=== PATIENT | female | born 1955 | race African-American/Black ===

== ENCOUNTER 2016-03-30 22:47 | Inpatient (IN) | payer OTHER ==
--- NOTE | ~2016-03-30 | CN ---
Consultation Report [facility] [address] [place]. [address] NAME: LYNN HAYS : 57 STATUS : ADM IN PAT#: [id number] AGE: 61 ADM/REG DATE : 03/31/16 MR#: [id number] REPORT SERV DATE: 04/09/16 DICTATED BY: JYOTHI RODRIGUEZ DATE: 04/09/16 REPORT STATUS : Draft TRANSCRIBED BY: MODL DATE: 04/09/16 DATE OF CONSULTATION: Dear Dr. Tidwell: Thank you for requesting my opinion regarding evaluation and management of Ms Lynn Hays's mediastinal lymphadenopathy and pulmonary hypertension. Ms Hays is an extremely pleasant 61-year-old female with a significant past medical history of obesity, hypertension, anemia, and diabetes who presents to [facility] with worsening shortness of breath and dyspnea on exertion over the past several months. The patient presented with worsening anasarca, abdominal pain, and weight gain. She had a BNP over 2000 and an indeterminate troponin. She denied any active chest pain, fevers, chills, night sweats, nausea, vomiting, diarrhea, or constipation. She was placed on diuretics and had felt significantly better. An echocardiogram demonstrated a normal EF with moderate pulmonary hypertension with PA pressures around 40 or 54, but could not exclude an ASD. A BHANU was recommended. As per the patient, there were three prior times for BHANU and is now scheduled for three attempts for BHANU, but her cough prohibited further evaluation. She is scheduled for a BHANU tomorrow. REVIEW OF SYSTEMS: A detailed 14-point review of systems was completed. Pertinent positives and negatives are listed above. PAST MEDICAL HISTORY: 1. Hypertension. 2. Left ventricular hypertrophy. 3. Anemia. 4. Morbid obesity. 5. Diabetes. 6. Pulmonary hypertension, diagnosed at least 10 years ago. PAST SURGICAL HISTORY: As above. ALLERGIES: NO KNOWN DRUG ALLERGIES. HOME MEDICATIONS: Include amlodipine, aspirin, benazepril, Coreg, cholecalciferol, hydrochlorothiazide, isosorbide, and spironolactone. FAMILY HISTORY: Stroke. SOCIAL HISTORY: The patient is a lifelong nonsmoker. She denies any significant history of alcohol or illicit drug abuse. PHYSICAL EXAMINATION: VITAL SIGNS: Afebrile. T-current 96.6, pulse of 52, respiratory rate of 22, 2 L nasal Consultation Report [facility] [address] [place]. [address] NAME: LYNN HAYS : 57 STATUS : ADM IN PAT#: [id number] AGE: 61 ADM/REG DATE : 03/31/16 MR#: [id number] REPORT SERV DATE: 04/09/16 DICTATED BY: JYOTHI RODRIGUEZ DATE: 04/09/16 REPORT STATUS : Draft TRANSCRIBED BY: MODL DATE: 04/09/16 cannula 98%, blood pressure 130/65. GENERAL: No acute distress. Able to communicate in full paragraphs at a time. Pleasant. HEENT: Normocephalic, atraumatic. Pupils are equal, round, reactive accommodation posterior oropharynx is clear. NECK: No JVD. No LAD. Trachea midline. CARDIOVASCULAR: Bradycardia, otherwise regular rhythm. No obvious murmurs, rubs, or clicks. LUNGS: Coarse bilateral breath sounds. Bronchial prominent wheezes noted on forced expiration. Otherwise, no other significant abnormalities. No dullness to percussion. ABDOMEN: Protuberant, nontender, nondistended. Soft. Positive bowel sounds. EXTREMITIES: Bilateral lower leg edema. NEUROLOGIC: 5/5 strength in upper and lower extremities. Cranial nerves II through XII intact. Gait not tested. DTRs not performed. LABORATORY DATA: White count of 5, hemoglobin of 10, platelet count of 208. Chemistries demonstrate a creatinine of 3.46 and albumin of 3.0. IMAGIN. Chest CT without contrast on 04/05/2016 demonstrates enlarged pulmonary arteries consistent with high pulmonary hypertension. 2. Congestive liver disease with right heart failure. 3. Bronchial wall thickening, likely related to asthma (?). 4. Discoid atelectasis in the right lower lobe. This CT scan was performed without contrast. It is difficult to delineate the pulmonary arterial system from the mediastinal lymphadenopathy. There, however, appears to be significant fullness which may indicate bilateral hilar adenopathy. This CT scan was reviewed by me and my interpretation was listed above. V/Q scan performed on 04/07/2016 demonstrated radiographic abnormalities in the left lower lobe, probability of pulmonary embolism is indeterminate. Bilateral lower leg Dopplers demonstrates no evidence of a DVT. This was performed on 03/31/2016. ASSESSMENT AND PLAN: Ms Lynn Hays is an extremely pleasant 61-year-old female with a significant past medical history of long-standing shortness of breath and chronic kidney disease with nephrotic range proteinuria, who presents with worsening shortness of breath, dyspnea on exertion, anasarca, and abdominal discomfort. The patient responded well to aggressive diuresis and she was evaluated for pulmonary hypertension with an echocardiogram. Echo demonstrated a normal EF and PA pressure of approximately. They cannot exclude an atrial septal defect. A transesophageal echocardiogram has been ordered that postponed due to cough issues related to the procedure and is now rescheduled for tomorrow. With regard to the patient's indeterminate V/Q scan, the patient likely has a low likelihood Consultation Report [address] [place]. [address] NAME: LYNN HAYS : 57 STATUS : ADM IN [facility]#: [id number] AGE: 61 ADM/REG DATE : 03/31/16 MR#: [id number] REPORT SERV DATE: 04/09/16 DICTATED BY: JYOTHI RODRIGUEZ DATE: 04/09/16 REPORT STATUS : Draft TRANSCRIBED BY: JESSE DATE: 04/09/16 of CTEPH. Nonetheless, I recommend that we complete the evaluation with bilateral upper extremity Dopplers. The previous bilateral lower leg Dopplers were negative. With the patient's CT scan of the chest is difficult to evaluate given there is no contrast. However, there seemed to be significant bilateral hilar fullness. This could represent just reactive adenopathy. The differential diagnosis does include sarcoidosis which could explain her cardiac issues as well. At this point, to better delineate the underlying causes of her pulmonary hypertension, I recommend the followin. Check NANCY, ANCA, ESR, CRP, anti-U1-PRECISION LATHE OPERATOR, anticentromere antibody, [id number] antibody. 2. Bilateral upper extremity Dopplers. 3. Check HIV test. 4. Full pulmonary function tests, to be performed on Sunday. 5. Comprehensive metabolic profile, to re-evaluate the patient's liver function test. 6. The patient may benefit from an outpatient sleep study. 7. Pending further recommendations with regard to possible EBUS bronchoscopy, will be discussed with Dr. Raphael, who is assuming the Pulmonary Consult Service. Thank you for allowing me to participate in Ms Hays's care. Sincerely, KEYA/JESSE Jyothi Rodriguez M.D. / [id number] CC: Pradeep Gillette M.D.
--- NOTE | ~2016-03-30 | IDS ---
Interim Discharge Summary [place] [address] [place] [address] NAME: NIRAJ HAYS : 57 STATUS : ADM IN PAT#: [id number] AGE: 61 ADM/REG DATE : 03/31/16 MR#: [id number] REPORT SERV DATE: 04/10/16 DICTATED BY: MICHELLE TIDWELL DATE: 04/09/16 REPORT STATUS : Draft TRANSCRIBED BY: MODL DATE: 04/09/16 ADMISSION DATE: 03/31/2016 DISCHARGE DATE: NO DICTATION DD/MODL Michelle Tidwell M.D. / [id number] CC: Pradeep Gillette M.D.
--- NOTE | ~2016-03-30 | CN ---
Consultation Report [facility] [address] [place]. [address] NAME: NIRAJ HAYS : 57 STATUS : ADM IN [facility]#: [id number] AGE: 61 ADM/REG DATE : 03/31/16 MR#: [id number] REPORT SERV DATE: 03/31/16 DICTATED BY: CARLINE VUONG DATE: 03/31/16 REPORT STATUS : Draft TRANSCRIBED BY: MODL DATE: 03/31/16 NEPHROLOGY CONSULTATION DATE OF CONSULTATION: INDICATION FOR CONSULTATION: Acute on chronic kidney failure, anasarca. HISTORY OF PRESENT ILLNESS: Ms. Hays is a 61-year-old female who is seen at request of Dr. Fisher to further evaluate acute on chronic kidney disease. She presented to the emergency room with some right-sided abdominal pain, increased weight of some 20 pounds, and some dull to sharp pain on palpation in the right upper quadrant with reported nausea and weakness. She apparently was not taking care of herself due to the recent of her mother. She indicates that her kidney function has been stable when seen by Dr. Navarro. Her baseline creatinine ranges 2.1 to 2.4 and was 2.2 when last seen in December 2015. Her admission creatinine was 2.96. She is noted to have large proteinuria on her urinalysis with office values typically 2 to 3+ and evidence of spot urine demonstrating 4 to 6 g of protein. Of note, her hemoglobin is lower, platelet count is low, and her WBC count is low which is atypical of outpatient labs. PAST MEDICAL HISTORY: Diet-controlled diabetes, hypertensive cardiomyopathy, obesity, pulmonary hypertension, anemia, congestive heart failure, remote cholecystectomy, chronic kidney disease, baseline creatinine 2.1 to 2.4 with late stage III, early stage IV CKD. FAMILY HISTORY: Positive for hypertension and diabetes. No end-stage renal disease. SOCIAL HISTORY: The patient recently lost her mother apparently due to kidney disease. No tobacco products, alcohol, or illicit drugs. ALLERGIES: NONE KNOWN. MEDICATIONS: Furosemide, vitamin D, doxazosin, Coreg, benazepril, aspirin, amlodipine, Aldactone. REVIEW OF SYSTEMS: HEENT: Change in visual acuity. No epistaxis. No otic infection. No pharyngitis. PULMONARY: No shortness of breath with exertion. Cough. No hemoptysis. CARDIAC: No chest pain. Has noted lower extremity edema. GI: Abdominal pain with nausea. No melena. No hematemesis. : No gross hematuria, dysuria, or pyuria. MUSCULOSKELETAL: Pain in back. Integument: No lesions. No itching. No rash. NEUROLOGIC: No lateralizing weakness or seizure activity. Remainder of the 12-point review of systems is negative. Consultation Report [place] [address] [place] [place] [address] NAME: NIRAJ HAYS : 57 STATUS : ADM IN [facility]#: [id number] AGE: 61 ADM/REG DATE : 03/31/16 MR#: [id number] REPORT SERV DATE: 03/31/16 DICTATED BY: CARLINE VUONG DATE: 03/31/16 REPORT STATUS : Draft TRANSCRIBED BY: JESSE DATE: 03/31/16 PHYSICAL EXAMINATION: GENERAL: Obese female, alert and cooperative. VITAL SIGNS: Blood pressure 150/72, temp 97.5, respiratory rate 18, pulse 43. HEENT: Eyes, no scleral icterus. Pupils equal and reactive to light. Extraocular movement intact. Nares patent. No lesions. Throat, no injection. Mucous membranes moist. NECK: No thyromegaly, masses, or bruits. CHEST/LUNGS: Late crackles posteriorly. No dullness. No wheezes. CARDIAC: Regular bradycardia. 1/6 systolic ejection murmur. No gallop. No rub. ABDOMEN: Obese. Normoactive bowel sounds. Mild right upper quadrant discomfort without guarding or rebound. Unable to appreciate hepatosplenomegaly or bruits. BREAST/PELVIC/RECTAL: Exam not performed. EXTREMITIES: 2 to 3+ edema. No calf tenderness. DERMIS: No rash. No skin lesions. MUSCULOSKELETAL: No deformity. No joint tenderness. NEUROLOGIC: Cranial nerves intact. No lateralizing weakness. IMPRESSION: 1. Acute on chronic kidney disease, possible SULEMA inhibitor effect, prerenal state, The patient may have underlying acute GN with history of nephrotic range proteinuria. 2. Anasarca likely due to nephrotic range proteinuria. May need to consider renal biopsy. 3. History of diet-controlled type 2 diabetes mellitus. 4. Hypertensive cardiomyopathy. 5. Obesity. 6. Pulmonary hypertension. 7. Pancytopenia. 8. History of congestive heart failure. 9. Remote cholecystectomy. PLAN: 1. Labs. 2. Continue current medications. 3. Access renal biopsy. CG/JESSE Carline Vuong M.D. / [id number] CC: René Fisher MD Consultation Report [address] [place]. [address] NAME: NIRAJ HAYS : 57 STATUS : ADM IN PAT#: [id number] AGE: 61 ADM/REG DATE : 03/31/16 MR#: [id number] REPORT SERV DATE: 03/31/16 DICTATED BY: CARLINE VUONG DATE: 03/31/16 REPORT STATUS : Draft TRANSCRIBED BY: MODL DATE: 03/31/16 Barber Navarro M.D.
--- NOTE | ~2016-03-30 | IDS ---
Interim Discharge Summary [place] [address] [facility] [place]. [address] NAME: NIRAJ HAYS : 57 STATUS : ADM IN [facility]#: [id number] AGE: 61 ADM/REG DATE : 03/31/16 MR#: [id number] REPORT SERV DATE: 04/10/16 DICTATED BY: MICHELLE TIDWELL DATE: 04/09/16 REPORT STATUS : Draft TRANSCRIBED BY: MODL DATE: 04/09/16 ADMISSION DATE: 03/31/2016 DISCHARGE DATE: DATE OF INTERIM SUMMARY: 04/09/2016. CURRENT DIAGNOSES: 1. Pulmonary hypertension, exact etiology not clear. 2. Possible atrial septal defect by transthoracic echocardiography. Failed attempts at transesophageal echocardiography x2 because of cough. Pulmonary evaluation pending. 3. Acute right heart failure, present on admission with anasarca, improved with 11 kg diuresis. 4. Acute bronchitis. 5. Type 2 diabetes. 6. Chronic kidney disease 5 with proteinuria. 7. Hypertension, with some nosocomial hypotension with treatment. 8. Bradycardia associated with low-dose beta-joanie therapy. 9. Ventricular arrhythmias. 10.Chronic anemia. 11.Iron deficiency, treated with Nulecit. 12.Obesity. OPERATIONS AND PROCEDURES: None. PRESENT ILLNESS: This is a 61-year-old white female, who was triaged in the emergency room on 03/30/2016 at 1733 hours complaining of abdominal pain. After evaluation in the emergency room, she was thought to have acute kidney injury associated with anasarca and hypertension. She was referred to the Hospitalist Service. She was seen by Dr. René Fisher and admitted as described on admission history and physical examination. ADDITIONAL HISTORY: Per Dr. Fisher. PHYSICAL EXAMINATION: Per Dr. Fisher. ADMISSION LABORATORY: Per Dr. Fisher. HOSPITAL COURSE: She was admitted with assessment. 1. Anasarca. 2. Possible nephrotic syndrome. 3. Hypertension. 4. Acute kidney injury. 5. Morbid obesity. 6. Type 2 diabetes. 7. Hypertensive cardiomyopathy with left ventricular hypertrophy history. 8. Pancytopenia. Interim Discharge Summary [place] [address] [facility] [place]. [address] NAME: NIRAJ HAYS : 57 STATUS : ADM IN [facility]#: [id number] AGE: 61 ADM/REG DATE : 03/31/16 MR#: [id number] REPORT SERV DATE: 04/10/16 DICTATED BY: MICHELLE TIDWELL DATE: 04/09/16 REPORT STATUS : Draft TRANSCRIBED BY: JESSE DATE: 04/09/16 9. Pulmonary hypertension. On admission, she was placed on [address]. Nephrology consultation was obtained. Hydralazine and clonidine were added to her antihypertensive regimen. Her home SULEMA inhibitor therapy was held. An echocardiogram was scheduled. Her hospitalist care was by Dr. Pope through 04/03/2016 and then the undersigned from 04/04/2016. An echocardiogram showed low normal left ventricular systolic function with an estimated EF of 50%. There was borderline right ventricular and right atrial enlargement. There was moderate to severe tricuspid regurgitation with moderately elevated pulmonary pressures at 42.88. There was concern for possible ASD. Cardiology was consulted. She was seen by Dr. Mercer who had seen her in the past. He recommended transesophageal echocardiography, overnight oximetry to evaluate for obstructive sleep apnea, low-dose Coreg, and continued diuresis. With diuresis she lost 11 kg of weight. Her dyspnea and abdominal pain improved, and her lower extremity edema resolved. With her diuresis and antihypertensive therapy, her creatinine on admission increased from 2.96 to 3.66 on the 04/07/2016 and is 3.5 today. This increased creatinine has persisted despite discontinuation of diuretic therapy and modification of her antihypertensive therapy. She has not tolerated even low-dose carvedilol 3.125 mg twice daily because of bradycardia. Attempts to perform transesophageal echocardiography have failed twice because she has been unable to remain supine because of cough. Additional evaluation of her pulmonary hypertension and cough has included overnight oximetry, which did not show significant desaturation. A V/Q lung scan showed scintigraphic and radiographic abnormalities in the left lower lobe, thought to be indeterminate for pulmonary embolus and not particularly consistent with chronic thromboembolic pulmonary hypertension. Venous ultrasound imaging of both lower extremities did not show DVT. A CT chest without contrast demonstrated large main pulmonary artery consistent with pulmonary hypertension. There is congestion of the liver with component of the right heart failure. There is bronchial wall thickening likely related to asthma. There is mild discoid atelectasis, right lower lobe. She was given bronchodilator therapy for her cough. There seemed to be some improvement, but she developed nausea and this was discontinued. She was given a single dose of Solu- Interim Discharge Summary [facility] [address] [place]. [address] NAME: NIRAJ HAYS : 57 STATUS : ADM IN PAT#: [id number] AGE: 61 ADM/REG DATE : 03/31/16 MR#: [id number] REPORT SERV DATE: 04/10/16 DICTATED BY: MICHELLE TIDWELL DATE: 04/09/16 REPORT STATUS : Draft TRANSCRIBED BY: MODL DATE: 04/09/16 Medrol with some initial improvement, but she was concerned that the corticosteroids would affect her renal function and refused further therapy. Pulmonary consultation is being obtained today for further recommendations. She was found to be iron deficient with an iron of 21 and a ferritin of 46. She received Nulecit iron replacement without complication. Additional significant diagnostic studies have included normal thyroid function tests with a TSH of 1.040 and a free T4 of 1.09. A C-reactive protein is borderline high at 9.3. C3 and C4 are normal at 104 and 31.6 respectively. A 24-hour urine protein is 1513 mg. LABORATORY STUDIES: An immunofixation did not demonstrate any monoclonal protein. Hepatitis profile and HIV were all negative. An NANCY was less than 1:40 and a serum protein electrophoresis demonstrates no monoclonal protein. SULEMA is less than 10. A sputum culture is no growth. She continues to be followed by [facility] Card[facility] and Nephrology group. Hospitalist care to be assumed by [address] [place] [address] Team on 04/11/2016. DD/INOCENCIAL Michelle Tidwell M.D. / [id number] CC: Pradeep Gillette M.D.
--- NOTE | ~2016-03-30 | CN ---
Consultation Report [address] [place]. [address] NAME: NIRAJ HAYS : 57 STATUS : ADM IN [facility]#: [id number] AGE: 61 ADM/REG DATE : 03/31/16 MR#: [id number] REPORT SERV DATE: 04/02/16 DICTATED BY: PORTER DUMONT DATE: 04/02/16 REPORT STATUS : Draft TRANSCRIBED BY: MODL DATE: 04/02/16 CARDIOLOGY CONSULTATION DATE OF CONSULTATION: 04/02/2016 The patient was admitted on 03/[address] René Fisher. HISTORY OF PRESENT ILLNESS: Mrs. Hays is a 61-year-old female, who struggles with obesity. Ten years ago, was noted to have moderate pulmonary hypertension. Comes in now with anasarca, abdominal pain, and weight gain. Found to have proteinuria close to nephrotic range. She had a BNP over 2000. Checked a troponin, which was 0.17. She has not had any chest pain. She has responded to IV Bumex and briefly was on dopamine drip. She has lost weight and feels better. An echocardiogram was performed two days ago. The EF was normal. They found moderate pulmonary hypertension with PA pressure around 54 and could not exclude an ASD. Recommendation, therefore, a BHANU to further evaluate. PAST MEDICAL HISTORY: Hypertension, left ventricular hypertrophy, anemia, morbid obesity, diabetes, pulmonary hypertension for at least 10 years. ALLERGIES: NONE. MEDICATIONS: Include amlodipine, aspirin, benazepril, she was taking Coreg 25 mg twice a day at home, cholecalciferol, hydrochlorothiazide, isosorbide, and spironolactone. FAMILY HISTORY: Pertinent for stroke. SOCIAL HISTORY: Nonsmoker. PAST SURGICAL HISTORY: As listed above. REVIEW OF SYSTEMS: Otherwise all negative. PHYSICAL EXAMINATION: VITAL SIGNS: Blood pressure 115/59 and heart rate 53. GENERAL: The patient is an overweight female, alert and oriented x3, in no distress. HEENT: Pupils equal, round, and reactive to light and accommodation. Extraocular muscles are intact. NECK: Supple. Trachea midline. No carotid bruits. CHEST: Clear. HEART: PMI, midclavicular line. Regular rate and rhythm. No significant murmur. ABDOMEN: Protuberant and soft. Consultation Report [address] [place]. [address] NAME: NIRAJ HAYS : 57 STATUS : ADM IN [facility]#: [id number] AGE: 61 ADM/REG DATE : 03/31/16 MR#: [id number] REPORT SERV DATE: 04/02/16 DICTATED BY: PORTER DUMONT DATE: 04/02/16 REPORT STATUS : Draft TRANSCRIBED BY: MODL DATE: 04/02/16 EXTREMITIES: Bilateral 1+ pitting edema. NEURO: Nonfocal. DATA: We have a 12-lead EKG, which shows probable sinus rhythm with PACs. She has nonspecific ST and T wave changes. The troponin is mentioned above. The BNP over 1999. The echocardiogram showing 50% ejection fraction with RVSP of 54 mmHg, 3+ tricuspid regurgitation, some right chamber dilatation, and cannot rule out an ASD. CLINICAL IMPRESSIONS: 1. Acute kidney injury. 2. Proteinuria. 3. Anasarca and abdominal pain, made better with diuresis. 4. Moderate pulmonary hypertension, 3+ tricuspid regurgitation, RV dilatation with possible ASD. 5. Obesity, diabetes, hypertension, left ventricular hypertrophy. 6. Bradycardia and nonsustained ventricular tachycardia, now off Coreg. PLAN: 1. Transesophageal echo in the morning. 2. Overnight oximetry to rule out obstructive sleep apnea. 3. Restart Coreg at a low dose. 4. Continue gentle diuresis. [facility]/MODL Porter Dumont M.D. / [id number] CC: Pradeep Lea M.D.
--- NOTE | ~2016-03-30 | PUL ---
[place] [address] [place]. [address] NAME: NIRAJ HAYS : 57 STATUS : ADM IN [facility]#: [id number] AGE: 61 ADM/REG DATE : 03/31/16 MR#: [id number] REPORT SERV DATE: 04/04/16 DICTATED BY: KAYLA RHOADES DATE: 04/03/16 REPORT STATUS : Draft TRANSCRIBED BY: MODL DATE: 04/03/16 PULMONARY FUNCTION TEST OVERNIGHT OXIMETRY REPORT START DATE OF TESTIN04/03/2016. END DATE OF TESTIN04/03/2016. COMMENTS: Testing was conducted with the patient breathing supplemental oxygen at a flow rate of 2 L/minute. RESULTS: Total valid sampling time: 5 hours 55 minutes and 37 seconds. Total time with an oxygen saturation less than 88%, 18 seconds. Oxygen desaturation index 3.2. IMPRESSION: There was no significant desaturation during this study conducted while the patient was breathing supplemental oxygen at a flow rate of 2 L/minute. PS/JESSE Kayla Rhoades M.D. / [id number] CC: Pradeep Lea M.D.
--- NOTE | ~2016-03-30 | CN ---
Consultation Report [place] [address] [id number] [facility] [place]. [address] NAME: LYNN HAYS : 57 STATUS : ADM IN [facility]#: [id number] AGE: 61 ADM/REG DATE : 03/31/16 MR#: [id number] REPORT SERV DATE: 04/10/16 DICTATED BY: FORREST COOPER DATE: 04/10/16 REPORT STATUS : Draft TRANSCRIBED BY: MODL DATE: 04/10/16 ELECTROPHYSIOLOGY CONSULTATION DATE OF CONSULTATION: Requested by Dr. Tao Mercer. INDICATION: Bradycardia. HISTORY OF PRESENT ILLNESS: Ms. Lynn Hays is a complicated 61-year-old female, who was admitted on March 31. She has been found to have significant pulmonary hypertension. She has chronic kidney disease with acute kidney injury. She has normal LV systolic function and high blood pressure. She has been seen by Cardiology, Pulmonology, and Nephrology, all under the direction of the Internal Medicine Service. The patient has had issues with bradycardia since admission. Her Coreg was held for a period of time, then resumed at a low-dose, then again been held secondary to bradycardia. She has sinus bradycardia with intermittent periods of a junctional rhythm with heart rates between 35 and 40 beats per minute. She does have some fatigue and shortness of breath. She has not had syncope or presyncope. No complaints of chest pain. PAST MEDICAL HISTORY: Hypertension, left ventricular hypertrophy, anemia, obesity, and pulmonary hypertension. MEDICATIONS: Subcu heparin, magnesium oxide, simethicone, and spironolactone. ALLERGIES: NONE KNOWN. SOCIAL HISTORY: No smoking. FAMILY HISTORY: Notable for a previous stroke in her family. REVIEW OF SYSTEMS: As per the HPI. Otherwise, all other review of systems are negative. PHYSICAL EXAMINATION: VITAL SIGNS: Blood pressure 120 to 150 systolic over 50s to 70s diastolic; pulse 40 to 46 beats per minute. Telemetry reviewed and as low as 38 beats per minute noted. GENERAL: Appears stated age, no distress. EYES: Sclerae anicteric, no arcus senilis. MOUTH: Oral mucosa moist, lips acyanotic. NECK: Jugular venous pressure normal, no carotid bruits. LUNGS: Clear to auscultation bilaterally, normal inspiratory effort. Diminished breath sounds in the bases. Consultation Report [place] [id number] [facility] [place]. [address] NAME: LYNN HAYS : 57 STATUS : ADM IN PAT#: [id number] AGE: 61 ADM/REG DATE : 03/31/16 MR#: [id number] REPORT SERV DATE: 04/10/16 DICTATED BY: FORREST COOPER DATE: 04/10/16 REPORT STATUS : Draft TRANSCRIBED BY: MODTrupti DATE: 04/10/16 CARDIAC: Irregular rhythm with a 2/6 systolic murmur. ABDOMEN: Soft, nontender. EXTREMITIES: Bilateral edema. SKIN: Warm and dry. NEUROLOGIC/PSYCHIATRIC: Alert and oriented, nonfocal, mood appropriate. IMAGING: ECG from 3 a.m. this morning is sinus bradycardia at 41 beats per minute. ECG from 7:51 p.m. yesterday has a probable junctional rhythm at a rate of 54 beats per minute. DATA: Sodium 136, potassium 5.7, BUN 65, creatinine 3.5, and hemoglobin 10.9. BNP was 2700 on admission. IMPRESSION: 1. Sinus bradycardia with evidence of sinus node dysfunction. Intermittent junctional rhythm also noted. 2. Chronic kidney disease with acute kidney injury and increased potassium. 3. Pulmonary hypertension. 4. Hypertension. RECOMMENDATIONS: Discussed with the patient and family the issues related to bradycardia and have offered implantation of a permanent pacemaker and the patient has significant bradycardia on any rate modulating medications. The patient declines pacemaker implant. I have discussed with her implications of this such as syncope, injury, etc. She voices full understanding and wished to have no pacemaker implanted. I will be available as needed. GKCriselda/JESSE Forrest Cooper M.D. / [id number] CC: Pradeep Gillette M.D.
--- NOTE | ~2016-03-30 | DS ---
Discharge Summary [id number] [place]. [address] NAME: NIRAJ HAYS : 57 STATUS : DIS IN PAT#: [id number] AGE: 61 ADM/REG DATE : 03/31/16 MR#: [id number] REPORT SERV DATE: 04/17/16 DICTATED BY: MALIK AMADO DATE: 04/16/16 REPORT STATUS : Draft TRANSCRIBED BY: MODL DATE: 04/16/16 ADMISSION DATE: 03/31/2016 DISCHARGE DATE: 04/16/2016 DISCHARGE DIAGNOSES: 1. Bradyarrhythmia, most likely sick sinus syndrome, status post pacemaker placement by Dr. Kristopher Shannon. 2. Hypertension. 3. Pulmonary hypertension. Exact etiology unknown. 4. Possible atrial septal defect by transthoracic echo. Failed attempted transesophageal echocardiogram x2 because of cough. 5. Acute right heart failure. Present on admission with anasarca, improved with 11 kg of diuresis. 6. Acute bronchitis. 7. Type 2 diabetes mellitus. 8. Chronic kidney disease stage V with proteinuria. 9. Hypertension with some nosocomial hypotension with treatment. 10.Ventricular arrhythmia in the past. 11.Chronic anemia. 12.Iron deficiency. Treated with IV iron. 13.Obesity. PROCEDURES AND OPERATIONS: 1. Pacemaker placement in the left upper chest. Device name Advisa DR GLOVER [id number]. 2. Dual chamber. BRIEF HISTORY OF PRESENT ILLNESS: The patient is 61-year-old female, triaged in the emergency room on 03/30/2016 at 1733 hours, complaining of abdominal pain. After evaluation in the emergency room, she was thought to have acute kidney injury associated with anasarca and hypertension. She was referred to the Hospitalist Service. She was seen by Dr. Fisher and admitted as described in the admission H and P and physical exam. HOSPITAL COURSE: This patient is assessment on admission was anasarca, nephrotic syndrome, hypertension, acute kidney injury, morbid obesity, type 2 diabetes mellitus, hypertensive cardiomyopathy with left ventricular hypertrophy history, and pancytopenia. This patient was cared for by Dr. Conrad Tidwell. Please refer to interim summary dictated by Dr. Tidwell on 04/10/2016. I took over this patient's care on 04/11/2016. At that time, this patient was doing poorly. Her kidney function was still continuing to not improve. Cardiology had seen the patient. I had a discussion with Dr. Tao Mercer and Dr. Jose Cooper had signed off because the patient had refused her pacemaker. Pulmonary saw the patient as well, and the patient was refusing any further workup. After discussing with the patient, I asked Palliative Care, Dr. Blount, to see the patient, and after having a discussion with Dr. Blount, the patient agreed that she would like to have a pacemaker done. Cardiology was reconsulted. Dr. Jose Cooper saw the patient and Dr. Shannon placed the pacemaker. Post- pacemaker, this patient's cough has abated, her pulmonary status has significantly improved, her volume status has remained stable without use of diuretics. She continues to do well. Discharge Summary [address] [address] NAME: NIRAJ HAYS : 57 STATUS : DIS IN PAT#: [id number] AGE: 61 ADM/REG DATE : 03/31/16 MR#: [id number] REPORT SERV DATE: 04/17/16 DICTATED BY: MALIK AMADO DATE: 04/16/16 REPORT STATUS : Draft TRANSCRIBED BY: JESSE DATE: 04/16/16 We have been successfully able to wean her off the oxygen. She was hypotensive to begin with. We have been able to re-initiate her antihypertensive medications. Her kidney function has significantly improved and today's creatinine is 2.5. She continues to do well. Physically, she is doing well. Cardiology has signed off and recommended that she could be discharged. Palliative Care has signed off her care as well and Renal has okayed her discharge. At this time, so things are pending as she may have an atrial septal defect which can be followed up in the outpatient setting or a BHANU can be scheduled at a later date to further assess for that. This patient remained stable and is being discharged in stable condition. DISCHARGE DISPOSITION: Home. DISCHARGE ACTIVITY: As tolerated. DISCHARGE DIET: Low-sodium diet. DISCHARGE MEDICATIONS: Norvasc 5 mg twice one tablet twice daily, Coreg 25 mg twice daily, Dulera two puffs twice daily, aspirin 81 mg once daily, vitamin D 10,000 units once every seven days. DISCHARGE FOLLOWUP: With Dr. Barber Navarro in two to four weeks for further management of the kidney disease and follow up with Cardiology for further management of the heart disease and pulmonary hypertension. More than 30 minutes spent planning this patient's discharge, reconciling medications, writing prescriptions, discussing hospital care, and follow up with the patient and the daughter at the bedside and documenting this discharge. GROVER/JESSE Malik Amado M.D. / [id number] CC: Pradeep Leon M.D.
--- NOTE | ~2016-03-30 | HP ---
History And Physical [place] [address] [address] [facility] [place]. [address] NAME: NIRAJ HAYS : 57 STATUS : ADM IN [facility]#: [id number] AGE: 61 ADM/REG DATE : 03/31/16 MR#: [id number] REPORT SERV DATE: 03/31/16 DICTATED BY: ESTUARDO FISHER DATE: 03/31/16 REPORT STATUS : Draft TRANSCRIBED BY: MODL DATE: 03/31/16 DATE OF ADMISSION: 03/31/2016 CHIEF COMPLAINT: Abdominal pain. HISTORY OF PRESENT ILLNESS: The patient is a 61-year-old female with past medical history of hypertensive cardiomyopathy, type 2 diabetes, anemia, pulmonary hypertension by echocardiogram, CKD, who presents after having right-sided abdominal pain and 20 plus pounds weight gain. The patient reports that symptoms of pain have been constant, moderate to severe in severity, dull, sharp, reproducible with palpation and associated with nausea, weakness and occasional cough. The patient just recently lost her mother and reports that she has not quite been taking care of herself like she should and is actually unclear about most of her medications that she does take. Symptoms are worsened with palpation and relieved by rest. Symptoms still currently present and reproducible. REVIEW OF SYSTEMS: GENERAL: No fevers, weakness, dizziness. Positive for chills. EYES: No visual changes or pain. ENT: Does have congestion and sinus drainage. NEURO: No headaches or mental status changes. SKIN: Does have some striae on abdomen wall. No rashes. RESPIRATORY: Positive cough. No shortness of breath or wheezing. CV: No chest pain or palpitations or claudication. Positive edema. GI: Does have nausea, but no vomiting. No diarrhea, constipation or abdominal pain. : No dysuria or retention. MUSCULOSKELETAL: Does have baseline myalgias and arthralgias and there are no fatigue or polyuria. HEME: No bleeding or bruising. IMMUNOLOGIC: No rhinorrhea. PSYCH: No anxiety or confusion. PAST MEDICAL HISTORY: As noted above. PAST MEDICAL HISTORY: Hypertensive cardiomyopathy with LVH, uncontrolled hypertension, anemia, morbid obesity, diet-controlled diabetes. FAMILY HISTORY: Diabetes, hypertension. SOCIAL HISTORY: No smoking, alcohol, or illicits. She has recently lost her mother due to kidney disease. SURGICAL HISTORY: Cholecystectomy. ALLERGIES: NO KNOWN DRUG ALLERGIES. MEDICATIONS: Unclear, but most recent list over year ago. Norvasc, Halfprin, benazepril, History And Physical [address] [place]. [address] NAME: NIRAJ HAYS : 57 STATUS : ADM IN PAT#: [id number] AGE: 61 ADM/REG DATE : 03/31/16 MR#: [id number] REPORT SERV DATE: 03/31/16 DICTATED BY: ESTUARDO FISHER DATE: 03/31/16 REPORT STATUS : Draft TRANSCRIBED BY: JESSE DATE: 03/31/16 Coreg vitamin D3, hydrochlorothiazide, Imdur, Aldactone. EKG: Sinus rhythm with occasional PVCs, rate 70, QTc 457. PHYSICAL EXAMINATION: VITAL SIGNS: Blood pressure 170/80, temperature 98.7, pulse 66, respirations 19, O2 sats 96% on room air. GENERAL: No acute distress. Calm, pleasant. HEAD: Normocephalic, atraumatic. EYES: No scleral icterus. EOMI. ENT: Nares patent. Tongue midline. Moist mucous membranes. RESPIRATORY: Right congestion. Right-sided rhonchi. No wheezes. CHEST: Equal chest expansion. CV: 3+ edema bilaterally. Regular rate. No rubs or gallops. Does have positive JVD bilateral. GI: Obese. Central obesity with striae. Nondistended. Mild right quadrant pain. Positive bowel sounds. MUSCULOSKELETAL: Moves all extremities x4. SKIN: Warm, dry. LYMPH: No cervical or supraclavicular lymphadenopathy. HEME: No bleeding or bruising. NEURO: Alert and oriented. Moves all extremities x4. PSYCH: Appropriate mood and affect. CT: Diffuse anasarca, ascites, cardiomegaly, postcholecystectomy diverticulosis, hepatomegaly. CBC: WBC 3.1, H and H 12.1 and 38.8 with MCV 35.6, platelets 114. CMP: Sodium 143, potassium 3.5, BUN and creatinine 34 and 2.96, bicarb 26, glucose 104, calcium 8.0. LFTs within normal limits. Lipase 161. Urinalysis greater than 500 protein. ASSESSMENT AND PLAN: 1. Anasarca. 2. Possible nephrotic syndrome. 3. Elevated hypertension. 4. Acute kidney injury. 5. Morbid obesity. 6. Diabetes type 2. 7. Hypertensive cardiomyopathy with left ventricular hypertrophy history. 8. Bicytopenia. 9. Pulmonary hypertension, on echo in 2007, with EF of 50%. PLAN: 1. For anasarca and possible nephrotic syndrome, positive protein. Check SPEP, UPEP, HIV, NANCY, echocardiogram, 24 hour protein. Nephrology consult. 2. Hypertension. We will add hydralazine and clonidine. Hold nephrotoxin at this time in the presence of CRISTINA until seen by Nephrology. 3. CRISTINA. Positive protein. Hold SULEMA inhibitor, diuretic with Bumex due to high protein x1 dose and reassess. Possible cardio-hepatorenal combination. History And Physical [address] [address] NAME: NIRAJ HAYS : 57 STATUS : ADM IN [facility]#: [id number] AGE: 61 ADM/REG DATE : 03/31/16 MR#: [id number] REPORT SERV DATE: 03/31/16 DICTATED BY: ESTUARDO FISHER DATE: 03/31/16 REPORT STATUS : Draft TRANSCRIBED BY: MODL DATE: 03/31/16 4. Morbid obesity. Positive weight gain with fluid. Will need eventual diuresis and fluid restriction. 5. Diabetes type 2. Sliding scale insulin. Check A1c. 6. Hypertensive cardiomyopathy with LVH. Check repeat echo, but does have pulmonary hypertension component on prior echo. 7. Bicytopenia. Unclear etiology. Currently monitor. No signs of petechiae or notable bleeders superinfection at this time. 8. Pulmonary hypertension on echocardiogram in 2007 with EF approximately 50%. We will reassess with repeat echo. All questions answered with the patient's family at bedside. Anticipate greater than two midnight inpatient stay. DDN/MODL Estuardo Fisher MD / [id number]
[2016-03-30 21:46] LABS: ASCORBIC ACID (UR NOT ORDER) NEG (NEG); BILIRUBIN, URINE NEGATIVE (NEG); ER URINALYSIS TAT 0 Hrs 11 Mins; KETONE, URINE NEGATIVE (NEG); LEUKOCYTE ESTERASE(NOT OR NEG (NEG); NITRITE (URINE) NEG (NEG); WBC (NOT ORDERED) (RFLEX) < 1 (0-5)
[2016-03-30 21:53] LABS: BASOPHILS 1.6 %; BASOPHILS ABSOLUTE 0.05 10/3/uL (0.0-0.16); EOSINOPHILS ABSOLUTE 0.03 10/3/uL (0.0-0.53); ER CBC TAT 0 Hrs 18 Mins; HEMATOCRIT 38.8 % (36.0-48.0); HEMOGLOBIN 12.1 g/dL (12.0-16.0); IMMATURE GRANULOCYTES 0.3 %; IMMATURE GRANULOCYTES ABSOLUTE 0.01 10/3/uL (0.0-0.11); LYMPHOCYTES 44.2 %; LYMPHOCYTES ABSOLUTE 1.38 10/3/uL (0.67-4.30); MANUAL DIFF NO %; MEAN CORPUS HGB CONC 31.2 g/dL (32.0-36.0); MEAN CORPUSCULAR HEMOGLOB 23.6 pg (26.0-34.0); MEAN CORPUSCULAR VOLUME 75.6 fL (80-100); MONOCYTES 12.8 %; NEUTROPHILS 40.1 %; NEUTROPHILS ABSOLUTE 1.25 10/3/uL (2.02-8.40); PLATELET COUNT 114 10/3/uL (150-400); RBC DISTRIBUTION WIDTH 18.7 % (12.0-16.0); RED CELL COUNT 5.13 10/6/uL (4.0-5.6); WHITE BLOOD CELLS 3.1 10/3/uL (4.5-10.5)
[2016-03-30 21:56] LABS: A/G RATIO 0.7 (0.7-1.9); ALBUMIN 3.3 G/DL (3.5-5.0); CHLORIDE, SERUM 106 MMOL/L (96-112); CO2 (CARBON DIOXIDE) 26 MMOL/L (24-34); GLOBULIN 4.7 G/DL (2.5-4.1); POTASSIUM, SERUM 3.5 MMOL/L (3.5-5.3); SGOT(AST) 27 U/L (5-40); SGPT(ALT) 21 U/L (5-65); SODIUM, SERUM 143 MMOL/L (135-148); TOTAL BILIRUBIN 0.5 MG/DL (0-1.2)
[2016-03-30 21:58] LABS: ALKALINE PHOSPHATASE 68 U/L (45-117); BUN (BLOOD UREA NITROGEN) 34 MG/DL (6-23); CREATININE 2.96 MG/DL (0.55-1.02); GFR AFRICAN AMERICAN 19 ML/MIN (>=60); GFR NON AFRICAN AMERICAN 16 ML/MIN (>=60); GLUCOSE, SERUM 104 MG/DL (60-99)
[2016-03-30 22:05] LABS: ANISOCYTOSIS 1+ (5-10/OIF) (0-5/OIF); HYPOCHROMIA 1+ (3-10/OIF) (0-2/OIF); MICROCYTES 1+ (5-10/OIF) (0-5/OIF); PLATELET ESTIMATE SLT DEC (ADEQUATE)
[2016-03-31] MEDS ORDERED: HALF81 PO (00:57)
[2016-03-31] MEDS ORDERED: HCTZ12.5 PO (00:58)
[2016-03-31] MEDS ORDERED: IMDUR30 PO (00:58)
[2016-03-31] MEDS ORDERED: MAXIMUM D3 PO (00:58)
[2016-03-31] MEDS ORDERED: LOTE40 PO (00:59)
[2016-03-31] MEDS ORDERED: NORV5 PO (00:59)
[2016-03-31] MEDS ORDERED: COREG25 PO (00:59)
[2016-03-31] MEDS ORDERED: SPIRO25 PO (01:00)
[2016-03-31] MEDS ORDERED: *UNABLE1 (01:27)
[2016-03-31 09:56] LABS: BASOPHILS 0.8 %; BASOPHILS ABSOLUTE 0.02 10/3/uL (0.0-0.16); EOSINOPHILS 1.6 %; EOSINOPHILS ABSOLUTE 0.04 10/3/uL (0.0-0.53); HEMATOCRIT 35.7 % (36.0-48.0); HEMOGLOBIN 11.3 g/dL (12.0-16.0); LYMPHOCYTES 36.8 %; LYMPHOCYTES ABSOLUTE 0.91 10/3/uL (0.67-4.30); MANUAL DIFF NO %; MEAN CORPUS HGB CONC 31.7 g/dL (32.0-36.0); MEAN CORPUSCULAR HEMOGLOB 23.7 pg (26.0-34.0); MONOCYTES 11.7 %; MONOCYTES ABSOLUTE 0.29 10/3/uL (0.21-1.20); NEUTROPHILS 49.1 %; NEUTROPHILS ABSOLUTE 1.21 10/3/uL (2.02-8.40); PLATELET COUNT 95 10/3/uL (150-400); RBC DISTRIBUTION WIDTH 18.7 % (12.0-16.0); RED CELL COUNT 4.76 10/6/uL (4.0-5.6); WHITE BLOOD CELLS 2.5 10/3/uL (4.5-10.5)
[2016-03-31 10:02] LABS: A/G RATIO 0.7 (0.7-1.9); ALBUMIN 3.1 G/DL (3.5-5.0); ALKALINE PHOSPHATASE 65 U/L (45-117); BUN (BLOOD UREA NITROGEN) 32 MG/DL (6-23); CALCIUM, SERUM 7.8 MG/DL (8.5-10.4); CHLORIDE, SERUM 105 MMOL/L (96-112); CO2 (CARBON DIOXIDE) 26 MMOL/L (24-34); CREATININE 2.92 MG/DL (0.55-1.02); FERRITIN 46 NG/ML (8-252); GFR AFRICAN AMERICAN 19 ML/MIN (>=60); GFR NON AFRICAN AMERICAN 17 ML/MIN (>=60); GLOBULIN 4.6 G/DL (2.5-4.1); GLUCOSE, SERUM 119 MG/DL (60-99); IRON BINDING CAPACITY 337 MCG/DL (225-410); IRON, SERUM 21 MCG/DL (35-150); PHOSPHORUS, SERUM 3.3 MG/DL (2.5-4.5); POTASSIUM, SERUM 3.3 MMOL/L (3.5-5.3); SGOT(AST) 27 U/L (5-40); SGPT(ALT) 17 U/L (5-65); SODIUM, SERUM 145 MMOL/L (135-148); TOTAL BILIRUBIN 0.5 MG/DL (0-1.2); TOTAL PROTEIN 7.7 G/DL (6.0-8.5)
[2016-03-31 10:03] LABS: T PROTEIN (ELECT)(NOT OR 7.2 G/DL (6.0-8.5)
[2016-03-31 10:03] LABS: TROPONIN I 0.17 NG/ML (<0.05)
[2016-03-31 10:04] LABS: ANISOCYTOSIS 1+ (5-10/OIF) (0-5/OIF); MICROCYTES 1+ (5-10/OIF) (0-5/OIF); PLATELET ESTIMATE DEC (ADEQUATE)
[2016-03-31 10:05] LABS: RBC MORPHOLOGY ABN (NORMAL); SCHISTOCYTES OCC (0-2/OIF); TARGET CELLS OCC (1-2/OIF) (0-1/OIF); TEARDROP SHAPED RBCS FEW (3-10/OIF)
[2016-03-31 10:28] LABS: B NATRIURETIC PEPTIDE (BNP) 2764.7 PG/ML (< 100.0)
[2016-03-31 10:32] LABS: PROCALCITONIN 0.22 ng/mL (<0.5)
[2016-03-31 10:34] LABS: HEPATITIS B SURFACE ANTIGEN NON-REACTIVE (NON-REACT)
[2016-03-31] MEDS ORDERED: L80 PO (10:43)
[2016-03-31 11:02] LABS: HEPATITIS B CORE AB IGM NON-REACTIVE (NON-REAC); HEPATITIS C ANTIBODY NON-REACTIVE (NON-REACT)
[2016-03-31 11:03] LABS: HIV COMBO NON-REACTIVE (NON REAC)
[2016-03-31 11:04] LABS: HEP A ANTIBODY IGM NON-REACTIVE (NON-REACT)
[2016-03-31 11:22] LABS: GLYCOHEMOGLOBIN (HbA1c) 5.7 % (4.7-6.1)
[2016-03-31 11:53] LABS: ANA TITER <1:40 TITER
[2016-04-01 01:30] LABS: BASOPHILS 0.8 %; BASOPHILS ABSOLUTE 0.02 10/3/uL (0.0-0.16); EOSINOPHILS 1.5 %; EOSINOPHILS ABSOLUTE 0.04 10/3/uL (0.0-0.53); HEMATOCRIT 33.9 % (36.0-48.0); HEMOGLOBIN 10.6 g/dL (12.0-16.0); LYMPHOCYTES 38.4 %; LYMPHOCYTES ABSOLUTE 1.01 10/3/uL (0.67-4.30); MEAN CORPUS HGB CONC 31.3 g/dL (32.0-36.0); MEAN CORPUSCULAR HEMOGLOB 23.9 pg (26.0-34.0); MEAN CORPUSCULAR VOLUME 76.4 fL (80-100); MONOCYTES 11.4 %; NEUTROPHILS 47.9 %; NEUTROPHILS ABSOLUTE 1.26 10/3/uL (2.02-8.40); PLATELET COUNT 95 10/3/uL (150-400); RBC DISTRIBUTION WIDTH 18.8 % (12.0-16.0); RED CELL COUNT 4.44 10/6/uL (4.0-5.6); WHITE BLOOD CELLS 2.6 10/3/uL (4.5-10.5)
[2016-04-01 01:35] LABS: MANUAL DIFF NO %
[2016-04-01 01:43] LABS: A/G RATIO 0.6 (0.7-1.9); ALBUMIN 2.8 G/DL (3.5-5.0); ALKALINE PHOSPHATASE 70 U/L (45-117); CALCIUM, SERUM 7.8 MG/DL (8.5-10.4); CHLORIDE, SERUM 104 MMOL/L (96-112); CO2 (CARBON DIOXIDE) 30 MMOL/L (24-34); CREATININE 2.96 MG/DL (0.55-1.02); GFR AFRICAN AMERICAN 19 ML/MIN (>=60); GFR NON AFRICAN AMERICAN 16 ML/MIN (>=60); GLOBULIN 4.6 G/DL (2.5-4.1); GLUCOSE, SERUM 126 MG/DL (60-99); PHOSPHORUS, SERUM 3.4 MG/DL (2.5-4.5); POTASSIUM, SERUM 3.6 MMOL/L (3.5-5.3); SGOT(AST) 22 U/L (5-40); SGPT(ALT) 14 U/L (5-65); SODIUM, SERUM 143 MMOL/L (135-148); TOTAL BILIRUBIN 0.6 MG/DL (0-1.2); TOTAL PROTEIN 7.4 G/DL (6.0-8.5)
[2016-04-01 01:44] LABS: BUN (BLOOD UREA NITROGEN) 38 MG/DL (6-23)
[2016-04-01 01:46] LABS: OVALOCYTES 1+ (3-10/OIF) (0-2/OIF); PLATELET ESTIMATE SLT DEC (ADEQUATE); SCHISTOCYTES FEW (3-10/OIF); TARGET CELLS FEW (3-10/OIF) (0-1/OIF); TEARDROP SHAPED RBCS FEW (3-10/OIF)
[2016-04-01 01:55] LABS: COMPLEMENT C3 104 MG/DL (75-161); COMPLEMENT C4 31.6 MG/DL (16-47)
[2016-04-01 10:49] LABS: # HR UR COLLECT (NOT ORD) 24; CREAT SERUM (NOT ORDER) 2.96 MG/DL (0.53-1.43); T.V. 24HR UR (NOT ORD) 2300 ML (600-1600); URINE TOTAL VOL (NOT ORD) 2300 ML
[2016-04-01 10:59] LABS: FREE T4 1.09 NG/DL (0.76-1.46)
[2016-04-01 11:02] LABS: OSMOLALITY, URINE 309 MOSM/KG (50-1200)
[2016-04-01 11:12] LABS: CREAT CLEAR (NOT ORDER) 16.8 ML/MIN (75-115); CREATININE (RANDOM URINE) 31.1 MG/DL; CREATININE, URINE 31.1 MG/DL; MICROALBUMIN, RANDOM URINE 32.1 MG/DL; MICROALBUMIN/CREATININE RATIO 1032 MCG/MG (<30); SODIUM, URINE 106 MEQ/L; T.P. URINE (NOT ORDER RAN 65.8 MG/DL; T.P.24HR UR (NOT ORDER) 1513 MG/24HR (40-150); URINE CREAT 0.71 G/T VOL (0.6-2.8)
[2016-04-02 05:16] LABS: BASOPHILS 0.2 %; BASOPHILS ABSOLUTE 0.01 10/3/uL (0.0-0.16); EOSINOPHILS 1.5 %; EOSINOPHILS ABSOLUTE 0.07 10/3/uL (0.0-0.53); HEMATOCRIT 35.8 % (36.0-48.0); HEMOGLOBIN 11.5 g/dL (12.0-16.0); IMMATURE GRANULOCYTES 0.2 %; IMMATURE GRANULOCYTES ABSOLUTE 0.01 10/3/uL (0.0-0.11); LYMPHOCYTES ABSOLUTE 1.07 10/3/uL (0.67-4.30); MEAN CORPUS HGB CONC 32.1 g/dL (32.0-36.0); MEAN CORPUSCULAR HEMOGLOB 24.1 pg (26.0-34.0); MEAN CORPUSCULAR VOLUME 74.9 fL (80-100); MONOCYTES 9.7 %; MONOCYTES ABSOLUTE 0.45 10/3/uL (0.21-1.20); NEUTROPHILS 65.4 %; NEUTROPHILS ABSOLUTE 3.04 10/3/uL (2.02-8.40); RBC DISTRIBUTION WIDTH 18.7 % (12.0-16.0); RED CELL COUNT 4.78 10/6/uL (4.0-5.6)
[2016-04-02 05:26] LABS: ALBUMIN 3.2 G/DL (3.5-5.0); BUN (BLOOD UREA NITROGEN) 36 MG/DL (6-23); CALCIUM, SERUM 8.4 MG/DL (8.5-10.4); CHLORIDE, SERUM 100 MMOL/L (96-112); CO2 (CARBON DIOXIDE) 31 MMOL/L (24-34); CREATININE 2.59 MG/DL (0.55-1.02); GFR AFRICAN AMERICAN 22 ML/MIN (>=60); GFR NON AFRICAN AMERICAN 19 ML/MIN (>=60); GLUCOSE, SERUM 113 MG/DL (60-99); PHOSPHORUS, SERUM 2.6 MG/DL (2.5-4.5); POTASSIUM, SERUM 3.9 MMOL/L (3.5-5.3); SODIUM, SERUM 141 MMOL/L (135-148)
[2016-04-02 05:29] LABS: MANUAL DIFF NO %; PLATELET COUNT 148 10/3/uL (150-400); WHITE BLOOD CELLS 4.7 10/3/uL (4.5-10.5)
[2016-04-02 06:48] LABS: ANISOCYTOSIS 1+ (5-10/OIF) (0-5/OIF); PLATELET ESTIMATE SLT DEC (ADEQUATE)
[2016-04-02 06:49] LABS: HELMET CELLS OCC (0-2/OIF); HYPOCHROMIA 1+ (3-10/OIF) (0-2/OIF); MICROCYTES 1+ (5-10/OIF) (0-5/OIF); POLYCHROMASIA 1+ (2-5/OIF) (0-1/OIF); SCHISTOCYTES OCC (0-2/OIF)
[2016-04-02 06:50] LABS: TARGET CELLS OCC (1-2/OIF) (0-1/OIF); TEARDROP SHAPED RBCS OCC (0-2/OIF)
[2016-04-03 06:21] LABS: BASOPHILS 0.3 %; BASOPHILS ABSOLUTE 0.02 10/3/uL (0.0-0.16); EOSINOPHILS 0.6 %; EOSINOPHILS ABSOLUTE 0.04 10/3/uL (0.0-0.53); HEMOGLOBIN 10.9 g/dL (12.0-16.0); IMMATURE GRANULOCYTES 0.3 %; IMMATURE GRANULOCYTES ABSOLUTE 0.02 10/3/uL (0.0-0.11); LYMPHOCYTES 27.9 %; LYMPHOCYTES ABSOLUTE 1.73 10/3/uL (0.67-4.30); MEAN CORPUS HGB CONC 32.1 g/dL (32.0-36.0); MEAN CORPUSCULAR HEMOGLOB 23.5 pg (26.0-34.0); MEAN CORPUSCULAR VOLUME 73.3 fL (80-100); MONOCYTES 11.8 %; MONOCYTES ABSOLUTE 0.73 10/3/uL (0.21-1.20); NEUTROPHILS 59.1 %; NEUTROPHILS ABSOLUTE 3.66 10/3/uL (2.02-8.40); PLATELET COUNT 130 10/3/uL (150-400); RBC DISTRIBUTION WIDTH 18.6 % (12.0-16.0); RED CELL COUNT 4.64 10/6/uL (4.0-5.6); WHITE BLOOD CELLS 6.2 10/3/uL (4.5-10.5)
[2016-04-03 06:23] LABS: MANUAL DIFF NO %
[2016-04-03 06:28] LABS: ALBUMIN 2.8 G/DL (3.5-5.0); BUN (BLOOD UREA NITROGEN) 41 MG/DL (6-23); CALCIUM, SERUM 8.2 MG/DL (8.5-10.4); CHLORIDE, SERUM 99 MMOL/L (96-112); CO2 (CARBON DIOXIDE) 31 MMOL/L (24-34); CREATININE 2.84 MG/DL (0.55-1.02); GFR AFRICAN AMERICAN 20 ML/MIN (>=60); GFR NON AFRICAN AMERICAN 17 ML/MIN (>=60); GLUCOSE, SERUM 97 MG/DL (60-99); PHOSPHORUS, SERUM 2.1 MG/DL (2.5-4.5); POTASSIUM, SERUM 4.5 MMOL/L (3.5-5.3); SODIUM, SERUM 140 MMOL/L (135-148)
[2016-04-03 06:56] LABS: ANISOCYTOSIS 1+ (5-10/OIF) (0-5/OIF); PLATELET ESTIMATE ADQ (ADEQUATE); POLYCHROMASIA 1+ (2-5/OIF) (0-1/OIF)
[2016-04-03 08:10] LABS: ALBUMIN RELAT % 54.6 %
[2016-04-03 09:40] LABS: ALB RELATIVE % 50.1 % (60.0-89.0); ALBUMIN (ELECTRO) 3.61 GM/DL (3.2-5.5); ALPHA 1 (ELECTRO) 0.24 GM/DL (0.1-0.4); ALPHA 1 RELAT % (NOT ORD) 3.3 % (1.0-4.0); ALPHA 2 (ELECTRO) 0.76 GM/DL (0.5-1.10); ALPHA 2 RELAT % 10.5 % (4.5-26.0); BETA GLOBULIN (SPE) 0.83 GM/DL (0.60-1.30); BETA RELATIVE % 11.5 % (9.0-22.0); GAMMA GLOBULIN (SPE) 1.77 G/DL (0.70-1.60); GAMMA RELAT % 24.6 % (6.0-22.0)
[2016-04-03 20:00] LABS: ALDOSTERONE 23.1 ng/dL (<39.2)
[2016-04-04 05:21] LABS: BASOPHILS 0.4 %; BASOPHILS ABSOLUTE 0.03 10/3/uL (0.0-0.16); EOSINOPHILS 0.4 %; EOSINOPHILS ABSOLUTE 0.03 10/3/uL (0.0-0.53); HEMATOCRIT 35.1 % (36.0-48.0); HEMOGLOBIN 10.9 g/dL (12.0-16.0); IMMATURE GRANULOCYTES 0.3 %; IMMATURE GRANULOCYTES ABSOLUTE 0.02 10/3/uL (0.0-0.11); LYMPHOCYTES 19.8 %; LYMPHOCYTES ABSOLUTE 1.35 10/3/uL (0.67-4.30); MEAN CORPUS HGB CONC 31.1 g/dL (32.0-36.0); MEAN CORPUSCULAR HEMOGLOB 23.5 pg (26.0-34.0); MONOCYTES 11.5 %; MONOCYTES ABSOLUTE 0.78 10/3/uL (0.21-1.20); NEUTROPHILS 67.6 %; PLATELET COUNT 164 10/3/uL (150-400); RBC DISTRIBUTION WIDTH 18.8 % (12.0-16.0); RED CELL COUNT 4.63 10/6/uL (4.0-5.6); WHITE BLOOD CELLS 6.8 10/3/uL (4.5-10.5)
[2016-04-04 05:22] LABS: MANUAL DIFF NO %; MEAN CORPUSCULAR VOLUME 75.8 fL (80-100)
[2016-04-04 05:29] LABS: INTERNATIONAL NORMAL RATI 1.3 UNITS (-); PROTIME (NOT ORD) 16.2 SEC (12.0-14.5)
[2016-04-04 06:03] LABS: ALBUMIN 2.9 G/DL (3.5-5.0); BUN (BLOOD UREA NITROGEN) 43 MG/DL (6-23); CALCIUM, SERUM 8.6 MG/DL (8.5-10.4); CHLORIDE, SERUM 98 MMOL/L (96-112); CO2 (CARBON DIOXIDE) 31 MMOL/L (24-34); CREATININE 2.91 MG/DL (0.55-1.02); DIRECT BILIRUBIN 0.2 MG/DL (0.0-0.4); GFR AFRICAN AMERICAN 19 ML/MIN (>=60); GFR NON AFRICAN AMERICAN 17 ML/MIN (>=60); GLUCOSE, SERUM 96 MG/DL (60-99); PHOSPHORUS, SERUM 2.3 MG/DL (2.5-4.5); POTASSIUM, SERUM 4.6 MMOL/L (3.5-5.3); SGPT(ALT) 16 U/L (5-65); SODIUM, SERUM 139 MMOL/L (135-148); TOTAL PROTEIN 7.2 G/DL (6.0-8.5)
[2016-04-04 06:15] LABS: ALKALINE PHOSPHATASE 52 U/L (45-117); INDIRECT BILIRUBIN(NOT ORDER) 1.2 MG/DL (0.1-0.9); TOTAL BILIRUBIN 1.4 MG/DL (0-1.2)
[2016-04-04 06:16] LABS: SGOT(AST) 25 U/L (5-40)
[2016-04-04 06:22] LABS: ANISOCYTOSIS 1+ (5-10/OIF) (0-5/OIF); ELLIPTOCYTES 1+ (3-10/OIF) (0-2/OIF); MICROCYTES 1+ (5-10/OIF) (0-5/OIF); PLATELET ESTIMATE ADQ (ADEQUATE)
[2016-04-04 13:32] LABS: C-REACTIVE PROTEIN 9.3 MG/L (<8.0)
[2016-04-05 05:56] LABS: BASOPHILS 0.3 %; BASOPHILS ABSOLUTE 0.02 10/3/uL (0.0-0.16); EOSINOPHILS 1.2 %; EOSINOPHILS ABSOLUTE 0.07 10/3/uL (0.0-0.53); HEMATOCRIT 35.2 % (36.0-48.0); IMMATURE GRANULOCYTES 0.3 %; IMMATURE GRANULOCYTES ABSOLUTE 0.02 10/3/uL (0.0-0.11); LYMPHOCYTES 17.6 %; LYMPHOCYTES ABSOLUTE 1.03 10/3/uL (0.67-4.30); MEAN CORPUS HGB CONC 31.3 g/dL (32.0-36.0); MEAN CORPUSCULAR HEMOGLOB 23.7 pg (26.0-34.0); MEAN CORPUSCULAR VOLUME 75.9 fL (80-100); MONOCYTES 10.6 %; MONOCYTES ABSOLUTE 0.62 10/3/uL (0.21-1.20); NEUTROPHILS ABSOLUTE 4.09 10/3/uL (2.02-8.40); PLATELET COUNT 170 10/3/uL (150-400); RBC DISTRIBUTION WIDTH 18.9 % (12.0-16.0); RED CELL COUNT 4.64 10/6/uL (4.0-5.6); WHITE BLOOD CELLS 5.9 10/3/uL (4.5-10.5)
[2016-04-05 05:57] LABS: MANUAL DIFF NO %
[2016-04-05 06:00] LABS: ALBUMIN 3.1 G/DL (3.5-5.0); ALKALINE PHOSPHATASE 57 U/L (45-117); BUN (BLOOD UREA NITROGEN) 41 MG/DL (6-23); CALCIUM, SERUM 8.7 MG/DL (8.5-10.4); CHLORIDE, SERUM 97 MMOL/L (96-112); CO2 (CARBON DIOXIDE) 31 MMOL/L (24-34); CREATININE 2.93 MG/DL (0.55-1.02); DIRECT BILIRUBIN 0.3 MG/DL (0.0-0.4); GFR AFRICAN AMERICAN 19 ML/MIN (>=60); GFR NON AFRICAN AMERICAN 17 ML/MIN (>=60); GLUCOSE, SERUM 102 MG/DL (60-99); INDIRECT BILIRUBIN(NOT ORDER) 0.9 MG/DL (0.1-0.9); PHOSPHORUS, SERUM 2.6 MG/DL (2.5-4.5); POTASSIUM, SERUM 4.7 MMOL/L (3.5-5.3); SGOT(AST) 22 U/L (5-40); SGPT(ALT) 15 U/L (5-65); SODIUM, SERUM 138 MMOL/L (135-148); TOTAL BILIRUBIN 1.2 MG/DL (0-1.2); TOTAL PROTEIN 7.4 G/DL (6.0-8.5)
[2016-04-05 06:33] LABS: ANISOCYTOSIS 1+ (5-10/OIF) (0-5/OIF); MICROCYTES 1+ (5-10/OIF) (0-5/OIF); PLATELET ESTIMATE ADQ (ADEQUATE)
[2016-04-05 12:07] LABS: HEMATOCRIT 35.9 % (36.0-48.0); HEMOGLOBIN 11.2 g/dL (12.0-16.0)
[2016-04-06 05:23] LABS: BUN (BLOOD UREA NITROGEN) 42 MG/DL (6-23); CALCIUM, SERUM 8.6 MG/DL (8.5-10.4); CHLORIDE, SERUM 97 MMOL/L (96-112); CO2 (CARBON DIOXIDE) 32 MMOL/L (24-34); CREATININE 3.06 MG/DL (0.55-1.02); GFR AFRICAN AMERICAN 18 ML/MIN (>=60); GFR NON AFRICAN AMERICAN 16 ML/MIN (>=60); GLUCOSE, SERUM 101 MG/DL (60-99); PHOSPHORUS, SERUM 3.3 MG/DL (2.5-4.5); POTASSIUM, SERUM 4.7 MMOL/L (3.5-5.3); SODIUM, SERUM 137 MMOL/L (135-148)
[2016-04-07 05:02] LABS: BUN (BLOOD UREA NITROGEN) 47 MG/DL (6-23); CALCIUM, SERUM 8.4 MG/DL (8.5-10.4); CHLORIDE, SERUM 96 MMOL/L (96-112); CO2 (CARBON DIOXIDE) 32 MMOL/L (24-34); CREATININE 3.63 MG/DL (0.55-1.02); GFR AFRICAN AMERICAN 15 ML/MIN (>=60); GFR NON AFRICAN AMERICAN 13 ML/MIN (>=60); GLUCOSE, SERUM 97 MG/DL (60-99); PHOSPHORUS, SERUM 3.3 MG/DL (2.5-4.5); POTASSIUM, SERUM 4.8 MMOL/L (3.5-5.3); SODIUM, SERUM 136 MMOL/L (135-148)
[2016-04-08 04:39] LABS: BASOPHILS 1.1 %; BASOPHILS ABSOLUTE 0.06 10/3/uL (0.0-0.16); EOSINOPHILS 0 %; HEMATOCRIT 34.6 % (36.0-48.0); HEMOGLOBIN 10.4 g/dL (12.0-16.0); IMMATURE GRANULOCYTES 0.4 %; IMMATURE GRANULOCYTES ABSOLUTE 0.02 10/3/uL (0.0-0.11); LYMPHOCYTES 17.7 %; LYMPHOCYTES ABSOLUTE 0.95 10/3/uL (0.67-4.30); MEAN CORPUS HGB CONC 30.1 g/dL (32.0-36.0); MEAN CORPUSCULAR HEMOGLOB 23.3 pg (26.0-34.0); MEAN CORPUSCULAR VOLUME 77.4 fL (80-100); MEAN PLATELET VOLUME 11.2 fL (9.2-13.0); MONOCYTES 12.8 %; MONOCYTES ABSOLUTE 0.69 10/3/uL (0.21-1.20); NEUTROPHILS ABSOLUTE 3.66 10/3/uL (2.02-8.40); PLATELET COUNT 208 10/3/uL (150-400); RED CELL COUNT 4.47 10/6/uL (4.0-5.6); WHITE BLOOD CELLS 5.4 10/3/uL (4.5-10.5)
[2016-04-08 04:41] LABS: MANUAL DIFF NO %
[2016-04-08 04:55] LABS: ALBUMIN 2.9 G/DL (3.5-5.0); CALCIUM, SERUM 8.8 MG/DL (8.5-10.4); CHLORIDE, SERUM 94 MMOL/L (96-112); CO2 (CARBON DIOXIDE) 34 MMOL/L (24-34); CREATININE 3.66 MG/DL (0.55-1.02); GFR AFRICAN AMERICAN 15 ML/MIN (>=60); GFR NON AFRICAN AMERICAN 13 ML/MIN (>=60); PHOSPHORUS, SERUM 2.9 MG/DL (2.5-4.5); POTASSIUM, SERUM 5.7 MMOL/L (3.5-5.3); SODIUM, SERUM 135 MMOL/L (135-148)
[2016-04-08 04:56] LABS: BUN (BLOOD UREA NITROGEN) 52 MG/DL (6-23); GLUCOSE, SERUM 119 MG/DL (60-99)
[2016-04-08 05:08] LABS: BAND NEUTROPHILS 3 %; LYMPHOCYTES 9 %; LYMPHOCYTES ABSOLUTE (CALC) 0.49 10/3/uL (0.67-4.30); MONOCYTES 6 %; MONOCYTES ABSOLUTE (CALC) 0.32 10/3/uL (0.21-1.20); NEUTROPHILS ABSOLUTE (CALC) 4.59 10/3/uL (2.02-8.40); SEGMENTED NEUTROPHIL (0) 82 %; TOTAL NUCLEATED CELLS 100
[2016-04-08 05:09] LABS: ANISOCYTOSIS 1+ (5-10/OIF) (0-5/OIF); HYPOCHROMIA 1+ (3-10/OIF) (0-2/OIF); PLATELET ESTIMATE ADQ (ADEQUATE); POLYCHROMASIA 1+ (2-5/OIF) (0-1/OIF); REACTIVE LYMPHS OCC (0-2%) (0-5%); TOXIC GRANULATION 1+
[2016-04-08 05:10] LABS: GIANT PLATELET OCC; SCHISTOCYTES OCC (0-2/OIF)
[2016-04-09 04:40] LABS: CALCIUM, SERUM 8.8 MG/DL (8.5-10.4); CHLORIDE, SERUM 96 MMOL/L (96-112); CO2 (CARBON DIOXIDE) 33 MMOL/L (24-34); CREATININE 3.46 MG/DL (0.55-1.02); GFR AFRICAN AMERICAN 16 ML/MIN (>=60); GFR NON AFRICAN AMERICAN 14 ML/MIN (>=60); GLUCOSE, SERUM 103 MG/DL (60-99); POTASSIUM, SERUM 4.8 MMOL/L (3.5-5.3); SODIUM, SERUM 136 MMOL/L (135-148)
[2016-04-09 04:43] LABS: BUN (BLOOD UREA NITROGEN) 59 MG/DL (6-23)
[2016-04-09 17:13] LABS: A/G RATIO 0.8 (0.7-1.9); ALBUMIN 3.3 G/DL (3.5-5.0); CALCIUM, SERUM 8.8 MG/DL (8.5-10.4); CHLORIDE, SERUM 94 MMOL/L (96-112); CO2 (CARBON DIOXIDE) 35 MMOL/L (24-34); GFR AFRICAN AMERICAN 16 ML/MIN (>=60); GFR NON AFRICAN AMERICAN 13 ML/MIN (>=60); GLOBULIN 4.3 G/DL (2.5-4.1); GLUCOSE, SERUM 105 MG/DL (60-99); POTASSIUM, SERUM 5.2 MMOL/L (3.5-5.3); SGOT(AST) 30 U/L (5-40); SGPT(ALT) 26 U/L (5-65); SODIUM, SERUM 138 MMOL/L (135-148); TOTAL PROTEIN 7.6 G/DL (6.0-8.5)
[2016-04-09 17:17] LABS: ALKALINE PHOSPHATASE 78 U/L (45-117); BUN (BLOOD UREA NITROGEN) 65 MG/DL (6-23); TOTAL BILIRUBIN 0.6 MG/DL (0-1.2)
[2016-04-09 20:42] LABS: C-REACTIVE PROTEIN < 2.9 MG/L (<8.0)
[2016-04-10 05:13] LABS: ALBUMIN 3.4 G/DL (3.5-5.0); BASOPHILS 1.2 %; BASOPHILS ABSOLUTE 0.06 10/3/uL (0.0-0.16); BUN (BLOOD UREA NITROGEN) 65 MG/DL (6-23); CALCIUM, SERUM 9.2 MG/DL (8.5-10.4); CHLORIDE, SERUM 96 MMOL/L (96-112); CO2 (CARBON DIOXIDE) 32 MMOL/L (24-34); CREATININE 3.59 MG/DL (0.55-1.02); GFR AFRICAN AMERICAN 15 ML/MIN (>=60); GFR NON AFRICAN AMERICAN 13 ML/MIN (>=60); GLUCOSE, SERUM 101 MG/DL (60-99); HEMATOCRIT 35.8 % (36.0-48.0); HEMOGLOBIN 10.9 g/dL (12.0-16.0); IMMATURE GRANULOCYTES 1.2 %; IMMATURE GRANULOCYTES ABSOLUTE 0.06 10/3/uL (0.0-0.11); LYMPHOCYTES 32.4 %; LYMPHOCYTES ABSOLUTE 1.59 10/3/uL (0.67-4.30); MEAN CORPUS HGB CONC 30.4 g/dL (32.0-36.0); MEAN CORPUSCULAR HEMOGLOB 24.1 pg (26.0-34.0); MEAN PLATELET VOLUME 11.3 fL (9.2-13.0); MONOCYTES 13.1 %; MONOCYTES ABSOLUTE 0.64 10/3/uL (0.21-1.20); NEUTROPHILS 50.1 %; NEUTROPHILS ABSOLUTE 2.45 10/3/uL (2.02-8.40); PHOSPHORUS, SERUM 2.9 MG/DL (2.5-4.5); PLATELET COUNT 176 10/3/uL (150-400); POTASSIUM, SERUM 5.7 MMOL/L (3.5-5.3); RBC DISTRIBUTION WIDTH 19.4 % (12.0-16.0); RED CELL COUNT 4.53 10/6/uL (4.0-5.6); SODIUM, SERUM 136 MMOL/L (135-148); WHITE BLOOD CELLS 4.9 10/3/uL (4.5-10.5)
[2016-04-10 05:21] LABS: MANUAL DIFF NO %
[2016-04-10 06:19] LABS: PLATELET ESTIMATE ADQ (ADEQUATE); RBC MORPHOLOGY NORM (NORMAL)
[2016-04-10 11:15] LABS: ANA PATTERN SPECKLED; ANTI CENTROMERE ANTIBODY NEGATIVE (NEGATIVE)
[2016-04-10 19:01] LABS: MICROALBUMIN, RANDOM URINE 66.6 MG/DL
[2016-04-11 08:14] LABS: BASOPHILS 0.7 %; BASOPHILS ABSOLUTE 0.03 10/3/uL (0.0-0.16); EOSINOPHILS 2.4 %; HEMATOCRIT 35.1 % (36.0-48.0); HEMOGLOBIN 10.6 g/dL (12.0-16.0); IMMATURE GRANULOCYTES ABSOLUTE 0.04 10/3/uL (0.0-0.11); LYMPHOCYTES 28.3 %; LYMPHOCYTES ABSOLUTE 1.16 10/3/uL (0.67-4.30); MEAN CORPUS HGB CONC 30.2 g/dL (32.0-36.0); MEAN CORPUSCULAR HEMOGLOB 23.6 pg (26.0-34.0); MEAN CORPUSCULAR VOLUME 78.2 fL (80-100); MONOCYTES 18.3 %; MONOCYTES ABSOLUTE 0.75 10/3/uL (0.21-1.20); NEUTROPHILS 49.3 %; NEUTROPHILS ABSOLUTE 2.02 10/3/uL (2.02-8.40); RBC DISTRIBUTION WIDTH 19.7 % (12.0-16.0); RED CELL COUNT 4.49 10/6/uL (4.0-5.6); WHITE BLOOD CELLS 4.1 10/3/uL (4.5-10.5)
[2016-04-11 08:18] LABS: MANUAL DIFF NO %; PLATELET COUNT 244 10/3/uL (150-400)
[2016-04-11 08:29] LABS: ALBUMIN 3.3 G/DL (3.5-5.0); BUN (BLOOD UREA NITROGEN) 65 MG/DL (6-23); CALCIUM, SERUM 8.8 MG/DL (8.5-10.4); CHLORIDE, SERUM 97 MMOL/L (96-112); CO2 (CARBON DIOXIDE) 34 MMOL/L (24-34); CREATININE 3.23 MG/DL (0.55-1.02); GFR AFRICAN AMERICAN 17 ML/MIN (>=60); GFR NON AFRICAN AMERICAN 15 ML/MIN (>=60); GLUCOSE, SERUM 105 MG/DL (60-99); PHOSPHORUS, SERUM 3.7 MG/DL (2.5-4.5); POTASSIUM, SERUM 4.6 MMOL/L (3.5-5.3); SODIUM, SERUM 138 MMOL/L (135-148)
[2016-04-11 08:47] LABS: ANISOCYTOSIS 1+ (5-10/OIF) (0-5/OIF); PLATELET ESTIMATE ADQ (ADEQUATE); POLYCHROMASIA 1+ (2-5/OIF) (0-1/OIF)
[2016-04-11 10:48] LABS: RNP ANTIBODIES (NOT ORD) NEGATIVE (NEGATIVE); SM ANTIBODIES NEGATIVE (NEGATIVE)
[2016-04-11 22:57] LABS: ANCA <1:20 (()); MYELOPEROXIDASE ANTIBODY <0.2 AI (<1.0); PROTEINASE 3 ANTIBODY <0.2 AI (<1.0)
[2016-04-12 06:28] LABS: ALBUMIN 3.4 G/DL (3.5-5.0); CALCIUM, SERUM 8.5 MG/DL (8.5-10.4); CHLORIDE, SERUM 99 MMOL/L (96-112); CO2 (CARBON DIOXIDE) 33 MMOL/L (24-34); CREATININE 3.41 MG/DL (0.55-1.02); GFR AFRICAN AMERICAN 16 ML/MIN (>=60); GFR NON AFRICAN AMERICAN 14 ML/MIN (>=60); GLUCOSE, SERUM 98 MG/DL (60-99); PHOSPHORUS, SERUM 4.1 MG/DL (2.5-4.5); POTASSIUM, SERUM 4.9 MMOL/L (3.5-5.3); SODIUM, SERUM 138 MMOL/L (135-148)
[2016-04-12 06:29] LABS: BASOPHILS 0.5 %; BASOPHILS ABSOLUTE 0.02 10/3/uL (0.0-0.16); EOSINOPHILS 1.6 %; EOSINOPHILS ABSOLUTE 0.06 10/3/uL (0.0-0.53); HEMATOCRIT 35.6 % (36.0-48.0); HEMOGLOBIN 10.9 g/dL (12.0-16.0); IMMATURE GRANULOCYTES 0.5 %; IMMATURE GRANULOCYTES ABSOLUTE 0.02 10/3/uL (0.0-0.11); LYMPHOCYTES ABSOLUTE 1.45 10/3/uL (0.67-4.30); MEAN CORPUS HGB CONC 30.6 g/dL (32.0-36.0); MEAN CORPUSCULAR HEMOGLOB 24.5 pg (26.0-34.0); MEAN PLATELET VOLUME 10.9 fL (9.2-13.0); MONOCYTES 11.8 %; MONOCYTES ABSOLUTE 0.45 10/3/uL (0.21-1.20); NEUTROPHILS 47.6 %; NEUTROPHILS ABSOLUTE 1.82 10/3/uL (2.02-8.40); RBC DISTRIBUTION WIDTH 19.8 % (12.0-16.0); RED CELL COUNT 4.45 10/6/uL (4.0-5.6); WHITE BLOOD CELLS 3.8 10/3/uL (4.5-10.5)
[2016-04-12 06:31] LABS: MANUAL DIFF NO %; PLATELET COUNT 170 10/3/uL (150-400)
[2016-04-12 06:32] LABS: BUN (BLOOD UREA NITROGEN) 69 MG/DL (6-23)
[2016-04-12 06:48] LABS: ANISOCYTOSIS 1+ (5-10/OIF) (0-5/OIF); PLATELET ESTIMATE ADQ (ADEQUATE)
[2016-04-12 06:49] LABS: POLYCHROMASIA 1+ (2-5/OIF) (0-1/OIF)
[2016-04-13 06:21] LABS: CALCIUM, SERUM 8.6 MG/DL (8.5-10.4); CHLORIDE, SERUM 99 MMOL/L (96-112); CO2 (CARBON DIOXIDE) 32 MMOL/L (24-34); CREATININE 3.29 MG/DL (0.55-1.02); GFR AFRICAN AMERICAN 17 ML/MIN (>=60); GFR NON AFRICAN AMERICAN 14 ML/MIN (>=60); GLUCOSE, SERUM 95 MG/DL (60-99); PHOSPHORUS, SERUM 4.2 MG/DL (2.5-4.5); POTASSIUM, SERUM 4.8 MMOL/L (3.5-5.3); SODIUM, SERUM 140 MMOL/L (135-148)
[2016-04-13 06:22] LABS: BUN (BLOOD UREA NITROGEN) 60 MG/DL (6-23)
[2016-04-13 06:26] LABS: BASOPHILS 0.6 %; BASOPHILS ABSOLUTE 0.02 10/3/uL (0.0-0.16); EOSINOPHILS 1.3 %; EOSINOPHILS ABSOLUTE 0.04 10/3/uL (0.0-0.53); HEMATOCRIT 33.1 % (36.0-48.0); IMMATURE GRANULOCYTES 0.3 %; IMMATURE GRANULOCYTES ABSOLUTE 0.01 10/3/uL (0.0-0.11); LYMPHOCYTES 36.6 %; LYMPHOCYTES ABSOLUTE 1.17 10/3/uL (0.67-4.30); MEAN CORPUS HGB CONC 30.2 g/dL (32.0-36.0); MEAN CORPUSCULAR HEMOGLOB 23.5 pg (26.0-34.0); MEAN CORPUSCULAR VOLUME 77.9 fL (80-100); MEAN PLATELET VOLUME 11.2 fL (9.2-13.0); MONOCYTES ABSOLUTE 0.32 10/3/uL (0.21-1.20); NEUTROPHILS 51.2 %; NEUTROPHILS ABSOLUTE 1.64 10/3/uL (2.02-8.40); PLATELET COUNT 176 10/3/uL (150-400); RBC DISTRIBUTION WIDTH 19.9 % (12.0-16.0); RED CELL COUNT 4.25 10/6/uL (4.0-5.6); WHITE BLOOD CELLS 3.2 10/3/uL (4.5-10.5)
[2016-04-13 06:28] LABS: MANUAL DIFF NO %
[2016-04-13 07:52] LABS: ANISOCYTOSIS 1+ (5-10/OIF) (0-5/OIF); HYPOCHROMIA 1+ (3-10/OIF) (0-2/OIF); PLATELET ESTIMATE SLT DEC (ADEQUATE)
[2016-04-14 05:13] LABS: BASOPHILS 0.2 %; BASOPHILS ABSOLUTE 0.01 10/3/uL (0.0-0.16); EOSINOPHILS 0.2 %; EOSINOPHILS ABSOLUTE 0.01 10/3/uL (0.0-0.53); HEMATOCRIT 34.4 % (36.0-48.0); HEMOGLOBIN 10.5 g/dL (12.0-16.0); IMMATURE GRANULOCYTES 0.4 %; IMMATURE GRANULOCYTES ABSOLUTE 0.02 10/3/uL (0.0-0.11); LYMPHOCYTES ABSOLUTE 1.03 10/3/uL (0.67-4.30); MEAN CORPUS HGB CONC 30.5 g/dL (32.0-36.0); MEAN CORPUSCULAR HEMOGLOB 24.4 pg (26.0-34.0); MEAN PLATELET VOLUME 10.8 fL (9.2-13.0); MONOCYTES 9.9 %; MONOCYTES ABSOLUTE 0.54 10/3/uL (0.21-1.20); NEUTROPHILS 70.3 %; NEUTROPHILS ABSOLUTE 3.82 10/3/uL (2.02-8.40); PLATELET COUNT 140 10/3/uL (150-400); RBC DISTRIBUTION WIDTH 19.8 % (12.0-16.0)
[2016-04-14 05:14] LABS: ALBUMIN 2.8 G/DL (3.5-5.0); ALKALINE PHOSPHATASE 55 U/L (45-117); BUN (BLOOD UREA NITROGEN) 62 MG/DL (6-23); CALCIUM, SERUM 8.5 MG/DL (8.5-10.4); CHLORIDE, SERUM 101 MMOL/L (96-112); CO2 (CARBON DIOXIDE) 31 MMOL/L (24-34); CREATININE 3.08 MG/DL (0.55-1.02); DIRECT BILIRUBIN 0.1 MG/DL (0.0-0.4); GFR AFRICAN AMERICAN 18 ML/MIN (>=60); GFR NON AFRICAN AMERICAN 16 ML/MIN (>=60); GLUCOSE, SERUM 108 MG/DL (60-99); INDIRECT BILIRUBIN(NOT ORDER) 0.4 MG/DL (0.1-0.9); POTASSIUM, SERUM 4.8 MMOL/L (3.5-5.3); SGOT(AST) 19 U/L (5-40); SGPT(ALT) 14 U/L (5-65); SODIUM, SERUM 139 MMOL/L (135-148); TOTAL BILIRUBIN 0.5 MG/DL (0-1.2); TOTAL PROTEIN 7.3 G/DL (6.0-8.5)
[2016-04-14 05:18] LABS: MANUAL DIFF NO %; WHITE BLOOD CELLS 5.4 10/3/uL (4.5-10.5)
[2016-04-14 07:11] LABS: ANISOCYTOSIS 1+ (5-10/OIF) (0-5/OIF); PLATELET ESTIMATE SLT DEC (ADEQUATE)
[2016-04-14 07:12] LABS: HYPOCHROMIA 1+ (3-10/OIF) (0-2/OIF); MICROCYTES 1+ (5-10/OIF) (0-5/OIF)
[2016-04-15 05:50] LABS: BASOPHILS 0.4 %; BASOPHILS ABSOLUTE 0.02 10/3/uL (0.0-0.16); EOSINOPHILS 0.9 %; EOSINOPHILS ABSOLUTE 0.05 10/3/uL (0.0-0.53); HEMATOCRIT 36.2 % (36.0-48.0); IMMATURE GRANULOCYTES 0.2 %; IMMATURE GRANULOCYTES ABSOLUTE 0.01 10/3/uL (0.0-0.11); LYMPHOCYTES ABSOLUTE 1.33 10/3/uL (0.67-4.30); MEAN CORPUS HGB CONC 30.4 g/dL (32.0-36.0); MEAN CORPUSCULAR HEMOGLOB 24.2 pg (26.0-34.0); MEAN CORPUSCULAR VOLUME 79.6 fL (80-100); MONOCYTES 11.4 %; MONOCYTES ABSOLUTE 0.63 10/3/uL (0.21-1.20); NEUTROPHILS 63.1 %; NEUTROPHILS ABSOLUTE 3.51 10/3/uL (2.02-8.40); PLATELET COUNT 134 10/3/uL (150-400); RED CELL COUNT 4.55 10/6/uL (4.0-5.6); WHITE BLOOD CELLS 5.6 10/3/uL (4.5-10.5)
[2016-04-15 05:55] LABS: ALBUMIN 2.9 G/DL (3.5-5.0); BUN (BLOOD UREA NITROGEN) 60 MG/DL (6-23); CALCIUM, SERUM 8.5 MG/DL (8.5-10.4); CHLORIDE, SERUM 102 MMOL/L (96-112); CO2 (CARBON DIOXIDE) 30 MMOL/L (24-34); CREATININE 3.02 MG/DL (0.55-1.02); GFR AFRICAN AMERICAN 19 ML/MIN (>=60); GFR NON AFRICAN AMERICAN 16 ML/MIN (>=60); GLUCOSE, SERUM 104 MG/DL (60-99); MANUAL DIFF NO %; PHOSPHORUS, SERUM 3.1 MG/DL (2.5-4.5); POTASSIUM, SERUM 4.7 MMOL/L (3.5-5.3); SODIUM, SERUM 140 MMOL/L (135-148)
[2016-04-15 06:20] LABS: PLATELET ESTIMATE SLT DEC (ADEQUATE)
[2016-04-16 07:03] LABS: ALBUMIN 2.8 G/DL (3.5-5.0); CALCIUM, SERUM 8.3 MG/DL (8.5-10.4); CHLORIDE, SERUM 104 MMOL/L (96-112); CO2 (CARBON DIOXIDE) 29 MMOL/L (24-34); CREATININE 2.54 MG/DL (0.55-1.02); GFR AFRICAN AMERICAN 23 ML/MIN (>=60); GFR NON AFRICAN AMERICAN 20 ML/MIN (>=60); GLUCOSE, SERUM 100 MG/DL (60-99); PHOSPHORUS, SERUM 3.2 MG/DL (2.5-4.5); POTASSIUM, SERUM 4.6 MMOL/L (3.5-5.3); SODIUM, SERUM 141 MMOL/L (135-148)
[2016-04-16 07:04] LABS: BUN (BLOOD UREA NITROGEN) 54 MG/DL (6-23)
[2016-04-16] MEDS ORDERED: DULERA 200 MCG/13 GM INH (09:54)
[2016-04-16] MEDS ORDERED: ULTRAM50 PO (09:58)
== END 2016-04-16 11:54 | disposition home or self-care (01) | DRG 242 ==
LOC: ER 22:47 → 6NO 03-31 02:17
PROVIDERS: Anesthesiology; Emergency Medicine; Internal Medicine; Internal Medicine Nephrology; Nurse Practitioner; Registered Nurse; Student in an Organized Health Care Education/Training Program
PROC: 0JH606Z Insertion of Pacemaker, Dual Chamber into Chest Subcutaneous Tissue and Fascia, Open Approach (ICD-10-PCS; principal; 2016-04-13)
PROC: 02H63JZ Insertion of Pacemaker Lead into Right Atrium, Percutaneous Approach (ICD-10-PCS; 2016-04-13)
PROC: 02HK3JZ Insertion of Pacemaker Lead into Right Ventricle, Percutaneous Approach (ICD-10-PCS; 2016-04-13)
DX: I13.0 Hypertensive heart and chronic kidney disease with heart failure and stage 1 through stage 4 chronic kidney disease, or unspecified chronic kidney disease (principal); I50.33 Acute on chronic diastolic (congestive) heart failure; J96.91 Respiratory failure, unspecified with hypoxia; I47.2 Ventricular tachycardia; N17.9 Acute kidney failure, unspecified; D61.818 Other pancytopenia; N18.5 Chronic kidney disease, stage 5; R18.8 Other ascites; I27.2 Other secondary pulmonary hypertension; Z68.41 Body mass index [BMI] 40.0-44.9, adult; Z51.5 Encounter for palliative care; E87.5 Hyperkalemia; E11.22 Type 2 diabetes mellitus with diabetic chronic kidney disease; I49.5 Sick sinus syndrome; E66.01 Morbid (severe) obesity due to excess calories; D50.9 Iron deficiency anemia, unspecified; I07.1 Rheumatic tricuspid insufficiency; G47.33 Obstructive sleep apnea (adult) (pediatric); Z90.49 Acquired absence of other specified parts of digestive tract; Z53.09 Procedure and treatment not carried out because of other contraindication
CPT/HCPCS: 33208; 71010; 71020; 71250; 74176; 78582; 80053; 80069; 80074; 80076; 81001; 81050; 82043; 82088; 82164; 82330; 82570; 82575; 82728; 82962; 83036; 83516; 83516-59; 83540; 83550; 83690; 83735; 83880; 83935; 84145; 84155; 84156; 84165; 84166; 84244; 84300; 84439; 84443; 84484; 85014; 85018; 85025; 85610; 85652; 86039; 86140; 86160; 86235; 86235-59; 86255; 87070; 87205; 87389; 93005; 93306; 93313; 93970; 94640; 94762; 97116-GP; 97162-GP; 97165-GO; 97530-GP; 99285; A9270-GY; A9540; A9567; C1785; C1892; C1898; J0690; J1200; J1940; J2405; J2550; J2916; J2920; J2930; J3010; P9047; Q9967

== ENCOUNTER 2016-05-15 18:07 | Inpatient (IN) | payer OTHER ==
--- NOTE | ~2016-05-15 | HP ---
History And Physical [place] [place]. [address] NAME: NIRAJ HAYS : 57 STATUS : ADM [facility] PAT#: [id number] AGE: 61 ADM/REG DATE : 05/15/16 MR#: [id number] REPORT SERV DATE: 05/16/16 DICTATED BY: ZACK FERRARA DATE: 05/15/16 REPORT STATUS : Draft TRANSCRIBED BY: MODL DATE: 05/15/16 DATE OF ADMISSION: 05/15/2016 CHIEF COMPLAINT: "Blood in my stools." HISTORY OF PRESENTING ILLNESS: Mrs. Hays is a 61-year-old female with a history of hypertension, CKD stage IV, morbid obesity, and dyslipidemia, who was recently discharged from the hospital on 04/16/2016, after being managed for abdominal pain. The patient presents today with a complaint of blood in her stools. She states that she was in her normal state of health until yesterday when after having a bowel movement and wiping herself, she noted blood on the tissue. She states that she had a repeat bowel movement this morning, and upon examining her stool, it was black and upon flushing she noted blood. She decided to present to the hospital to have her symptoms evaluated. Upon presenting to the emergency room, Hemoccult was performed, which was positive for blood. The patient was subsequently admitted on the Hospitalist Service for further management. At the time of my evaluation, the patient corroborated the above story. She was hemodynamically stable. She denied any other symptoms other than the blood in her stools. She denied any nausea or vomiting. She denied any hemoptysis or hematemesis. She denied any lightheadedness or dizziness. She denied any syncopal episodes. No fever, no chills, no nausea, no vomiting, and no diarrhea. No recent sick contacts. No recent change in her diet. REVIEW OF SYSTEMS: A 14-point review of system was performed. All systems were negative except as noted in the HPI. PAST MEDICAL HISTORY: 1. Hypertension. 2. History of bradycardia secondary to sick sinus syndrome. She is status post pacemaker placement. 3. CKD stage IV. 4. Morbid obesity. PAST SURGICAL HISTORY: The patient reports a history of a cholecystectomy. FAMILY HISTORY: She reports a history of hypertension and diabetes. Also reports a history of esophageal cancer and lung cancer in her grandparents. SOCIAL HISTORY: The patient lives alone. She denies any illicit drug use. Denies any alcohol use or tobacco use. ALLERGIES: THE PATIENT STATES THAT SHE IS ALLERGIC TO IODINE CONTRAST AND LATEX. NO KNOWN DRUG ALLERGIES. PHYSICAL EXAMINATION: VITAL SIGNS: Vitals on presentation, blood pressure 135/95 with a pulse of 91, respirations 16, O2 saturation 94% on room air, temperature 36.83 degree Celsius or 98.3 degrees History And Physical [address] [address] NAME: NIRAJ HAYS : 57 STATUS : ADM [place] PAT#: [id number] AGE: 61 ADM/REG DATE : 05/15/16 MR#: [id number] REPORT SERV DATE: 05/16/16 DICTATED BY: ZACK FERRARA DATE: 05/15/16 REPORT STATUS : Draft TRANSCRIBED BY: JESSE DATE: 05/15/16 [facility]. GENERAL: The patient is lying in bed, appears stated age, in no acute distress. HEENT: Normocephalic and atraumatic. Extraocular motors intact. Moist oral mucosa. NECK: Trachea is midline and symmetric. No JVD noted. No thyromegaly appreciated. No lymphadenopathy noted. The patient, however, has a full neck . CHEST: Nontender to palpation. CARDIOVASCULAR: Regular rate and rhythm. S1, S2. No murmurs, rubs, or gallops. LUNGS: Decreased breath sounds secondary to body habitus. ABDOMEN: Obese, nontender, and nondistended. Positive bowel sounds. EXTREMITIES: No cyanosis, no clubbing, no edema. NEURO: Alert and oriented x3. No focal deficits appreciated. LABS: WBC 7.3, hemoglobin 11.5, hematocrit 35.2, and platelets 114. Sodium 144, potassium 4.1, chloride 107, bicarb 26, BUN 42, creatinine 2.70 with a glucose of 108. Normal LFTs. HOME MEDICATIONS: Amlodipine 5 mg p.o. daily, aspirin 81 mg p.o. daily, carvedilol 25 mg p.o. twice a day, and 10,000 units of cholecalciferol p.o. q.7 days. ASSESSMENT AND PLAN: 1. Gastrointestinal bleed. Per history, likely lower GI bleed. We will consult GI. Continue PPI drip, n.p.o. at midnight. 2. Hypertension. Currently controlled. Continue home medications. 3. History of bradycardia. Likely secondary to sick sinus, status post pacemaker stable. 4. Acute kidney injury on chronic kidney disease stage IV. We will consult Nephrology. 5. Morbid obesity. 6. Dyslipidemia. ASCVD score 7.4, moderate intensity statin indicated. Atorvastatin 20 mg p.o. daily. 7. Code status is full. 8. DVT prophylaxis, sequential compression devices. JE/MODL Zack Ferrara MD / [id number] CC: Zack Ferrara MD
--- NOTE | ~2016-05-15 | EGD ---
EGD REPORT [facility] [address] [place] [address] NAME: LYNN HAYS : 57 STATUS : ADM [place] PAT#: [id number] AGE: 61 ADM/REG DATE : 05/15/16 MR#: [id number] REPORT SERV DATE: 05/16/16 DICTATED BY: RENE STEPHENS DATE: 05/16/16 REPORT STATUS : Draft [facility]ANSCRIBED BY: [facility] DATE: 05/16/16 [facility] Patient Name: Lynn Hays Date of : 1955 Attending MD: RENE STEPHENS MD Procedure Date No Time: 05/16/2016 Procedure: Upper GI endoscopy Indications: Hematochezia, Melena Referring MD: CHRISTEL MARIE Medicines: Monitored Anesthesia Care Complications: No immediate complications. Estimated blood loss: Minimal. Procedure: After obtaining informed consent, the endoscope was passed under direct vision. Throughout the procedure, the patient's blood pressure, pulse, and oxygen saturations were monitored continuously. The GIF [id number] was introduced through the mouth, and advanced to the second part of duodenum. The upper GI endoscopy was accomplished without difficulty. The patient tolerated the procedure well. Findings: The examined esophagus was normal. A large hiatus hernia was present. Scattered moderate inflammation characterized by congestion (edema), erosions and erythema was found in the gastric body. Biopsies were taken with a cold forceps for Helicobacter pylori testing. Estimated blood loss was minimal. The examined duodenum was normal. Impression: - Hiatus hernia. - Gastritis. Biopsied. - Exam otherwise normal Recommendation: - [facility]. - Perform a colonoscopy tomorrow. Procedure Code(s): --- Professional --- 64378, Esophagogastroduodenoscopy, flexible, transoral; with biopsy, single or multiple Diagnosis Code(s): --- Professional --- K44.9, Diaphragmatic hernia without obstruction or gangrene K29.70, Gastritis, unspecified, without bleeding EGD REPORT [facility] [address] [address] NAME: LYNN HAYS : 57 STATUS : ADM [place] PAT#: [id number] AGE: 61 ADM/REG DATE : 05/15/16 MR#: [id number] REPORT SERV DATE: 05/16/16 DICTATED BY: RENE STEPHENS DATE: 05/16/16 REPORT STATUS : Draft TRANSCRIBED BY: [employer] DATE: 05/16/16 [email or web address] CPT copyright 2013 [employer]. All rights reserved. The codes documented in this report are preliminary and upon estimator and drafter review may be revised to meet current compliance requirements. Rene Stephens MD RENE STEPHENS MD 05/16/2016 11:16 AM This report has been signed electronically. Number of Addenda: 0 Note Initiated On: 05/16/2016 10:44 AM Scope Withdrawal Time 0 hours 0 minutes 0 seconds [id number] [facility] [address] [place] [id number]
--- NOTE | ~2016-05-15 | CN ---
Consultation Report [facility] [address] [place]. [address] NAME: NIRAJ HAYS : 57 STATUS : ADM Padilla PAT#: [id number] AGE: 61 ADM/REG DATE : 05/15/16 MR#: [id number] REPORT SERV DATE: 05/17/16 DICTATED BY: DAVID HINOJOSA DATE: 05/15/16 REPORT STATUS : Draft TRANSCRIBED BY: MODL DATE: 05/15/16 NEPHROLOGY CONSULT NOTE DATE OF CONSULTATION: HISTORY OF PRESENT ILLNESS: Ms. Hays is a 61-year-old black female, we have seen before, 03/31/2016, Dr. Anderson Levi consulted for our group for diabetes, hypertension, obesity, pulmonary hypertension, chronic renal disease, baseline creatinine 2.1 to 2.5, and history of anemia and cholecystectomy. FAMILY HISTORY: Positive for hypertension, diabetes, no chronic kidney disease. SOCIAL HISTORY: No tobacco. No alcohol. No drugs. ALLERGIES: SHE IS ALLERGIC TO CONTRAST, ADHESIVE TAPE, AND DULERA. MEDICATIONS: Medications at home are amlodipine, aspirin, carvedilol, cholecalciferol, and denies any nonsteroidal anti-inflammatory use. Consulted now for acute on chronic kidney failure, creatinine has gone from 2.5 to 2.7 with the GI bleeding. She gives a history of having some bright red blood in her emesis and some dark stools. Dr. Neves has a schedule for EGD in the morning. PHYSICAL EXAMINATION: VITAL SIGNS: Blood pressure 145/65, heart rate of 88, respirations 18, temperature 98.2. GENERAL: Up in the bathroom, when I first arrived in the room, she is scheduled for an EGD in a.m., oriented x3, cooperative, no acute distress. HEENT: Unremarkable. LUNGS: Clear. CARDIOVASCULAR: No pericardial rub. ABDOMEN: Obese, soft. Bowel sounds are present. EXTREMITIES: 1+ edema in both lower extremities. Much improved from before and nonfocal. NEUROLOGICAL: Cranial nerves 2 through 12 intact. SKIN: No skin rash and no open sores. LABORATORY DATA: Lab show sodium 144, potassium 4.1, chloride 107, CO2 of 26, BUN of 42, creatinine 2.270 with an INR 1.4. Fasting blood sugar is 108. White count 7.3, hemoglobin 11, hematocrit 34, platelet count 115,000. ASSESSMENT: 1. Acute kidney injury on chronic kidney disease secondary to gastrointestinal bleed, probably some volume contraction. 2. Diabetes mellitus type 2. 3. Gastrointestinal bleed for EGD in a.m. Consultation Report [place] [address] [place]. [address] NAME: NIRAJ HAYS : 57 STATUS : ADM Padilla PAT#: [id number] AGE: 61 ADM/REG DATE : 05/15/16 MR#: [id number] REPORT SERV DATE: 05/17/16 DICTATED BY: DAVID HINOJOSA DATE: 05/15/16 REPORT STATUS : Draft TRANSCRIBED BY: MODL DATE: 05/15/16 4. Hypertension. 5. History of pulmonary hypertension. 6. Obesity. 7. History of sick sinus syndrome, pacemaker in place. PLAN: We will have partners follow. Check labs in a.m. and follow Is and Os. TAB/JESSE David Hinojosa M.D. / [id number] CC: Conrad Tidwell M.D.
--- NOTE | ~2016-05-15 | DS ---
Discharge Summary [facility] [address] [place]. [address] NAME: NIRAJ HAYS : 57 STATUS : DIS IN PAT#: [id number] AGE: 61 ADM/REG DATE : 05/15/16 MR#: [id number] REPORT SERV DATE: 05/20/16 DICTATED BY: MICHELLE TIDWELL DATE: 05/19/16 REPORT STATUS : Draft TRANSCRIBED BY: MODL DATE: 05/19/16 ADMISSION DATE: 05/15/2016 DISCHARGE DATE: 05/19/2016 CONTINUATION: Her hemoglobins were trended and remained in the low 11s and mid 10s. She was seen by GI, Dr. Neves. The above-mentioned procedures were done with findings as noted above. She had an adverse reaction to IV hydralazine given for blood pressure spike with symptoms described above. A CT brain was done to evaluate for stroke and none was seen. She did have nasopharyngeal fullness prompting ENT consultation with Dr. Pickens with findings compatible with adenoiditis. Amoxicillin for 10 days with office followup is recommended. She complained of being more dyspneic and fatigued since her pacemaker placement earlier this year. [facility] consultation was obtained. She was seen by Dr. Mackay. Her pacemaker was interrogated. She has normal pacemaker function. No recommendations were made regarding her pacemaker. Dr. Mackay felt she had several comorbidities to account for her symptomatology. He thought she should complete her evaluation for pulmonary hypertension and possible ASD with a transesophageal echo in the future. In addition to her medical problems, I think she has some deconditioning. Home health care and PT were recommended and is being arranged with her [facility] and our case technician. Today, it is felt she has achieved a level of improvement and stability where she can be safely discharged home. Her hemoglobin is 10.4. Her creatinine is stable at 2.52. Platelets are stable at 111,000 and INR at 1.4. She is being discharged home to follow up with the [facility] as scheduled. She will see her primary care physician, whose name she cannot recall. Home health care PT to be arranged. She will follow up with Dr. Pickens. She was also going to consider a Cardiology evaluation with the [facility] or [facility] groups who accept her [facility] insurance. DISCHARGE MEDICATIONS: Norvasc 5 mg twice daily, Coreg 25 mg twice daily, aspirin 81 mg daily, vitamin D 1000 units every seven days, ranitidine 150 mg or omeprazole 20 mg OTC daily, and amoxicillin 500 mg twice daily for 10 days. DD/MODL Michelle Tidwell M.D. Discharge Summary [address] [address] NAME: NIRAJ HAYS : 57 STATUS : DIS IN PAT#: [id number] AGE: 61 ADM/REG DATE : 05/15/16 MR#: [id number] REPORT SERV DATE: 05/20/16 DICTATED BY: MICHELLE TIDWELL DATE: 05/19/16 REPORT STATUS : Draft TRANSCRIBED BY: MODL DATE: 05/19/16 / [id number] CC: Michelle Tidwell M.D. MD Rene Porter M.D., Ph.D, F.A.C.C. Michelle Pickens M.D.
--- NOTE | ~2016-05-15 | EGD ---
EGD REPORT [facility] [address] [place] [address] NAME: LYNN HAYS : 57 STATUS : ADM IN PAT#: [id number] AGE: 61 ADM/REG DATE : 05/15/16 MR#: [id number] REPORT SERV DATE: 05/18/16 DICTATED BY: RENE STEPHENS DATE: 05/18/16 REPORT STATUS : Draft [facility]ANSCRIBED [facility]: [facility] DATE: 05/18/16 [facility] Patient Name: Lynn Hays Date of : 1955 Attending MD: RENE STEPHENS MD Procedure Date No Time: 05/18/2016 Procedure: Colonoscopy Indications: Hematochezia, Melena Referring MD: CHRISTEL MARIE Medicines: Monitored Anesthesia Care Complications: No immediate complications. Estimated blood loss: None. Procedure: Pre-Anesthesia Assessment: - ASA Grade Assessment: III - A patient with severe systemic disease. After I obtained informed consent, the scope was passed under direct vision. Throughout the procedure, the patient's blood pressure, pulse, and oxygen saturations were monitored continuously. The CF [id number] was introduced through the anus and advanced to the cecum, identified by appendiceal orifice and ileocecal valve. The colonoscopy was performed without difficulty. The patient tolerated the procedure well. The quality of the bowel preparation was good. Findings: The perianal and digital rectal examinations were normal. Pertinent negatives include normal sphincter tone and no palpable rectal lesions. Multiple small-mouthed diverticula were found in the sigmoid colon, in the descending colon, in the transverse colon and in the ascending colon. A single (solitary) four mm ulcer was found in the rectum. No bleeding was present. Stigmata of recent bleeding were present. To prevent bleeding post-intervention, one hemostatic clip was successfully placed. There was no bleeding at the end of the procedure. Estimated blood loss: none. The exam was otherwise without abnormality on direct and retroflexion views. Impression: - Diverticulosis in the sigmoid colon, in the descending colon, in the transverse colon and in the ascending colon. - A single (solitary) ulcer in the rectum. Clip was placed. - The examination was otherwise normal on direct and retroflexion views. EGD REPORT [address] [address] NAME: LYNN HAYS : 57 STATUS : ADM IN [facility]#: [id number] AGE: 61 ADM/REG DATE : 05/15/16 MR#: [id number] REPORT SERV DATE: 05/18/16 DICTATED BY: RENE STEPHENS DATE: 05/18/16 REPORT STATUS : Draft TRANSCRIBED BY: [employer] [facility] DATE: 05/18/16 Recommendation: - Discharge patient to home (ambulatory). - Soft diet. Procedure Code(s): --- Professional --- 82724, Colonoscopy, flexible, proximal to splenic flexure; diagnostic, with or without collection of specimen(s) by brushing or washing, with or without colon decompression (separate procedure) Diagnosis Code(s): --- Professional --- K57.30, Diverticulosis of large intestine without perforation or abscess without bleeding K62.6, Ulcer of anus and rectum K92.1, Melena CPT copyright 2013 [employer]. All rights reserved. The codes documented in this report are preliminary and upon forest manager review may be revised to meet current compliance requirements. Rene Stephens MD RENE STEPHENS MD 05/18/2016 10:15 AM This report has been signed electronically. Number of Addenda: 0 Note Initiated On: 05/18/2016 9:25 AM Scope Withdrawal Time 0 hours 10 minutes 22 seconds [address] [place] [address]
--- NOTE | ~2016-05-15 | CN ---
Consultation Report [place] [address] [facility] [place]. [address] NAME: NIRAJ HAYS : 57 STATUS : DIS IN PAT#: [id number] AGE: 61 ADM/REG DATE : 05/15/16 MR#: [id number] REPORT SERV DATE: 05/19/16 DICTATED BY: RENE LUU DATE: 05/19/16 REPORT STATUS : Draft TRANSCRIBED BY: MODL DATE: 05/19/16 CARDIOLOGY CONSULTATION. DATE OF CONSULTATION: [facility] PHYSICIAN: Dr. Mercer. REASON FOR CONSULTATION: Dyspnea. HISTORY OF PRESENT ILLNESS: Ms. Hays is a 61-year-old woman, who was recently hospitalized with dyspnea and bradycardia. She was found to have cor pulmonale and bradycardia as well as chronic kidney disease. She eventually underwent pacemaker placement for symptomatic bradycardia and was discharged home. Since that time, she has had some persistent ongoing exertional fatigue and dyspnea. She thought she was going to feel a lot better. She presented to the hospital with heme-positive stools and underwent a GI evaluation. She already has ongoing dyspnea and was concerned that her pacemaker did not make her feel better. I have reviewed her hospitalization and her previous course. She has no chest pain or chest tightness. She has no palpitations or lightheadedness. She has no fevers or chills. REVIEW OF SYSTEMS: As per the history of present illness. Ten other systems are negative. PAST MEDICAL HISTORY: 1. Recurrent edema with cor pulmonale. 2. Pulmonary hypertension of unclear etiology. 3. The patient declined previous evaluation with right heart catheterization and BHANU. 4. Diabetes. 5. Hypertension. 6. Morbid obesity at 121 kilos. 7. Hypercholesterolemia and diabetes. FAMILY HISTORY: Positive for hypertension and diabetes. SOCIAL HISTORY: The patient denies tobacco or alcohol. ALLERGIES: IODINE CONTRAST, TAPE, MOMETASONE, DULERA. HOME MEDICATIONS: Amlodipine 5 daily, aspirin 81 daily, Coreg 25 p.o. b.i.d., vitamin D. PHYSICAL EXAMINATION: VITAL SIGNS: Heart rate 77, blood pressure 131/78. GENERAL: The patient is a pleasant, morbidly obese, black female, in no apparent distress. HEENT: Conjunctivae are anicteric, no xanthelasma, lips without cyanosis. Consultation Report [place] [address] [facility] [place]. [address] NAME: NIRAJ HAYS : 57 STATUS : DIS IN PAT#: [id number] AGE: 61 ADM/REG DATE : 05/15/16 MR#: [id number] REPORT SERV DATE: 05/19/16 DICTATED BY: RENE LUU DATE: 05/19/16 REPORT STATUS : Draft TRANSCRIBED BY: MODL DATE: 05/19/16 NECK: Supple. Jugular venous pressure is mildly elevated. LUNGS: Clear to auscultation bilaterally, no wheezes, rales or rhonchi. CARDIOVASCULAR: Regular rate and rhythm. There is a 1 to 2/6 systolic murmur. ABDOMEN: Obese, soft, nontender, nondistended. EXTREMITIES: No edema. NEURO/PSYCH: Alert and oriented to person, place and time. No obvious neurologic deficits. Mood and affect normal. DATA: Creatinine is 2.5. GFR is 23. Hematocrit is 33. EKG shows paced rhythm and interrogation shows appropriate function. IMPRESSION: 1. Exertional dyspnea, which is likely multifactorial. 2. Pulmonary hypertension of unclear etiology, question atrial septal defect. 3. Cor pulmonale with right-sided enlargement, which may be primary or secondary. 4. Bradycardia status post pacemaker placement. 5. Diabetes. 6. Hypertension. 7. Morbid obesity. 8. Chronic kidney disease. RECOMMENDATIONS: Ms. Hays has multiple issues. There is no sign of significant decompensation based on my exam today and she is saturating well on room air. Dr. Mercer had discussed the importance of a transesophageal echocardiogram and right heart cath to determine if she has an ASD that might be involved in her right heart dysfunction. She is still not sure that that is what she would want at this time. I have discussed the case with Dr. Tidwell, and I think the plan will be let her go home and try to follow up as an outpatient. I have discussed that we do not take her insurance, but that the [facility] and [facility] do, and that if she changes her insurance, we will be happy to see her electively. WO/MODL Rene Luu M.D., Ph.D, F.A.C.C. / [id number] CC: Conrad Tidwell M.D.
--- NOTE | ~2016-05-15 | HP ---
History And Physical [place] [address] [place]. [address] NAME: NIRAJ HAYS : 57 STATUS : ADM Padilla PAT#: [id number] AGE: 61 ADM/REG DATE : 05/15/16 MR#: [id number] REPORT SERV DATE: 05/16/16 DICTATED BY: ZACK FERRARA DATE: 05/15/16 REPORT STATUS : Draft TRANSCRIBED BY: MODL DATE: 05/15/16 DATE OF ADMISSION: 05/15/2016 CHIEF COMPLAINT: Blood in my stool. HISTORY OF PRESENTING ILLNESS: Ms. Hays is a 61-year-old female with a history of hypertension, dyslipidemia, CKD stage 4, morbid obesity, who presented to the hospital with a complaint of melenic stools with bright red blood. Of note, the patient was recently discharged from the hospital after about 18 days being in the hospital for management of abdominal pain, which was complicated by development of sick sinus syndrome requiring a pacemaker. She states that upon using the restroom, she was wiping herself, she noted blood on the tissue. The patient states that upon having a repeat bowel movement today she noted melenic stools and blood in the toilet bowl. The patient decided to present to the hospital to have that evaluated. Upon presentation to the emergency room, Hemoccult performed was positive. The patient was therefore admitted on the Hospitalist Service for further management. At the time of my evaluation, the patient corroborated the above story. She denied any lightheadedness, dizziness, fever, chills, nausea, vomiting, diarrhea, constipation, any recent change in diet. REVIEW OF SYSTEMS: A 14-point review of system was performed. All systems were negative except as noted in the HPI. PAST MEDICAL HISTORY: Morbid obesity, CKD stage 4, and dyslipidemia. PAST SURGICAL HISTORY: Cholecystectomy. FAMILY HISTORY: Hypertension, diabetes, history of esophageal cancer, and history of lung cancer. SOCIAL HISTORY: The patient currently lives alone. Denies any illicit drug use, any alcohol use or any tobacco use. ALLERGIES: THE PATIENT IS ALLERGIC TO IODINE CONTRAST AND LATEX. NO KNOWN DRUG ALLERGIES. PHYSICAL EXAMINATION: VITAL SIGNS: Blood pressure 135/95, pulse 91, respirations 16, O2 saturation 94% on room air, and temperature 98.3. GENERAL: The patient lying in bed, in no acute distress, appears stated age. HEENT: Normocephalic, atraumatic. Extraocular motor is intact. Moist oral mucosa. NECK: Trachea midline and symmetric. No JVD noted. CHEST: Nontender to palpation. CARDIOVASCULAR: Regular rate and rhythm S1, S2. No murmurs, rubs, or gallops. LUNGS: Clear to auscultation bilaterally. No added breath sounds. ABDOMEN: Obese, nontender, nondistended. EXTREMITIES: No cyanosis, no clubbing, no edema. History And Physical [address] [address] NAME: NIRAJ HAYS : 57 STATUS : ADM Padilla PAT#: [id number] AGE: 61 ADM/REG DATE : 05/15/16 MR#: [id number] REPORT SERV DATE: 05/16/16 DICTATED BY: ZACK FERRARA DATE: 05/15/16 REPORT STATUS : Draft TRANSCRIBED BY: JESSE DATE: 05/15/16 LABS: WBC 7.3, hemoglobin 11.5, hematocrit 35.2, and platelets 114. Sodium 144, potassium 4.1, chloride 107, bicarb 26, BUN 42, creatinine 2.70, glucose 108. ASSESSMENT AND PLAN: 1. GI bleed. We will consult GI. Place the patient on a PPI drip. 2. Hypertension, controlled. Continue home medications. 3. History of bradycardia, stable, status post pacemaker placement. 4. Acute kidney injury on chronic kidney disease, stage 4. Nephrology consult. 5. Morbid obesity, stable. 6. Dyslipidemia. ASCVD score 7.4, initiate moderate-intensity statin, atorvastatin 20 mg p.o. daily. 7. Code status. Full. 8. DVT prophylaxis. SCDs. JOE/JESSE Zack Ferrara MD / [id number] CC: Zack Ferrara MD
--- NOTE | ~2016-05-15 | DS ---
Discharge Summary [place] [address] [place]. [address] NAME: NIRAJ HAYS : 57 STATUS : DIS IN PAT#: [id number] AGE: 61 ADM/REG DATE : 05/15/16 MR#: [id number] REPORT SERV DATE: 05/25/16 DICTATED BY: MICHELLE TIDWELL DATE: 05/19/16 REPORT STATUS : Draft TRANSCRIBED BY: MODL DATE: 05/19/16 ADMISSION DATE: 05/15/2016 DISCHARGE DATE: 05/19/2016 DIAGNOSES AT DISCHARGE: 1. Acute gastrointestinal bleeding. 2. Gastropathy on EGD with biopsy showing mild chronic active gastritis. No intestinal metaplasia or dysplasia with H. pylori staining negative. 3. Diverticulosis on colonoscopy and single solitary ulcer in rectum. Probable site of rectal bleeding, clip placed. 4. Adverse drug reaction to IV hydralazine including left hand and arm numbness and weakness with stomach tightening and facial flushing, resolved, negative CT brain. 5. 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 Pickens. Antimicrobial therapy and office followup recommended. 6. Mild thrombocytopenia. 7. Hypoprothrombinemia. 8. Sick sinus syndrome, post recent pacemaker placement with normal pacemaker function, on interrogation. 9. Chronic kidney disease 4 with proteinuria. 10.Pulmonary hypertension. 11.Possible atrial septal defect, failed BHANU attempts 03/2016. Followup needed. 12.Acute right heart failure, 03/2016 hospitalization. 13.Type 2 diabetes. 14.Hypertension. 15.Nonsustained ventricular tachycardia. 16.Chronic anemia. 17.Iron deficiency per 2017 hospitalization, treated with Nulecit. 18.Morbid obesity. 19.Tricuspid regurgitation. OPERATIONS AND PROCEDURES: Upper GI endoscopy 05/16/2016, Dr. Neves; colonoscopy 05/18/2016, Dr. Neves. PRESENT ILLNESS: This is a 61-year-old female who was triaged in the emergency room on 05/15/2016 at 1414 hours with gastrointestinal bleeding. She was referred to the Hospitalist Service for admission. She was seen by Dr. Lester and admitted as described on admission history and physical examination. ADDITIONAL HISTORY: Per Dr. Lester. PHYSICAL EXAMINATION: Per Dr. Lester. ADMISSION LABORATORY: Per Dr. Lester. HOSPITAL COURSE: She was admitted to [address] [place] [address] with new gastrointestinal bleeding as Discharge Summary [place] [address] [place]. [address] NAME: NIRAJ HAYS : 57 STATUS : DIS IN PAT#: [id number] AGE: 61 ADM/REG DATE : 05/15/16 MR#: [id number] REPORT SERV DATE: 05/25/16 DICTATED BY: MICHELLE TIDWELL DATE: 05/19/16 REPORT STATUS : Draft TRANSCRIBED BY: JESSE DATE: 05/19/16 described. Her hospitalist care was by the undersigned. On admission, her hemoglobins were trended. Her hemoglobins were trended and remained in the low 11s and mid 10s. She was seen by GI, Dr. Neves. The above-mentioned procedures were done with findings as noted above. She had an adverse reaction to IV hydralazine given for blood pressure spike with symptoms described above. A CT brain was done to evaluate for stroke and none was seen. She did have nasopharyngeal fullness prompting ENT consultation with Dr. Pickens with findings compatible with adenoiditis. Amoxicillin for 10 days with office followup is recommended. She complained of being more dyspneic and fatigued since her pacemaker placement earlier this year. [facility] consultation was obtained. She was seen by Dr. Mackay. Her pacemaker was interrogated. She has normal pacemaker function. No recommendations were made regarding her pacemaker. Dr. Mackay felt she had several comorbidities to account for her symptomatology. He thought she should complete her evaluation for pulmonary hypertension and possible ASD with a transesophageal echo in the future. In addition to her medical problems, I think she has some deconditioning. Home health care and PT were recommended and is being arranged with her [facility] and our family independence case manager. Today, it is felt she has achieved a level of improvement and stability where she can be safely discharged home. Her hemoglobin is 10.4. Her creatinine is stable at 2.52. Platelets are stable at 111,000 and INR at 1.4. She is being discharged home to follow up with the [facility]rology [facility] as scheduled. She will see her primary care physician, whose name she cannot recall. Home health care PT to be arranged. She will follow up with Dr. Pickens. She was also going to consider a Cardiology evaluation with the [facility] or [place] groups [facility] DISCHARGE MEDICATIONS: Norvasc 5 mg twice daily, Coreg 25 mg twice daily, aspirin 81 mg daily, vitamin D 1000 units every seven days, ranitidine 150 mg or omeprazole 20 mg OTC daily, and amoxicillin 500 mg twice daily for 10 days. DD/MODL Michelle Tidwell M.D. Discharge Summary [place] [address] [facility] [address] [place] [address] NAME: NIRAJ HAYS : 57 STATUS : DIS IN PAT#: [id number] AGE: 61 ADM/REG DATE : 05/15/16 MR#: [id number] REPORT SERV DATE: 05/25/16 DICTATED BY: MICHELLE TIDWELL DATE: 05/19/16 REPORT STATUS : Draft TRANSCRIBED BY: JESSE DATE: 05/19/16 / [id number] CC: Michelle Tidwell M.D.
[2016-05-15 14:42] LABS: BASOPHILS 0.1 %; BASOPHILS ABSOLUTE 0.01 10/3/uL (0.0-0.16); EOSINOPHILS 0.4 %; EOSINOPHILS ABSOLUTE 0.03 10/3/uL (0.0-0.53); ER CBC TAT 0 Hrs 05 Mins; HEMATOCRIT 35.2 % (36.0-48.0); HEMOGLOBIN 11.5 g/dL (12.0-16.0); IMMATURE GRANULOCYTES 0.1 %; IMMATURE GRANULOCYTES ABSOLUTE 0.01 10/3/uL (0.0-0.11); LYMPHOCYTES 12.8 %; LYMPHOCYTES ABSOLUTE 0.94 10/3/uL (0.67-4.30); MEAN CORPUSCULAR HEMOGLOB 25.8 pg (26.0-34.0); MEAN CORPUSCULAR VOLUME 78.9 fL (80-100); MONOCYTES ABSOLUTE 0.44 10/3/uL (0.21-1.20); NEUTROPHILS 80.6 %; NEUTROPHILS ABSOLUTE 5.91 10/3/uL (2.02-8.40); PLATELET COUNT 114 10/3/uL (150-400); RBC DISTRIBUTION WIDTH 22.6 % (12.0-16.0); RED CELL COUNT 4.46 10/6/uL (4.0-5.6); WHITE BLOOD CELLS 7.3 10/3/uL (4.5-10.5)
[2016-05-15 14:44] LABS: MANUAL DIFF NO %; MEAN CORPUS HGB CONC 32.7 g/dL (32.0-36.0)
[2016-05-15 14:50] LABS: INTERNATIONAL NORMAL RATI 1.4 UNITS (-); PARTIAL THROMBO TIME 28.1 SEC (22.5-37.2); PROTIME (NOT ORD) 17.2 SEC (12.0-14.5)
[2016-05-15 14:58] LABS: A/G RATIO 0.9 (0.7-1.9); ALBUMIN 3.9 G/DL (3.5-5.0); ALKALINE PHOSPHATASE 72 U/L (45-117); BUN (BLOOD UREA NITROGEN) 42 MG/DL (6-23); CHLORIDE, SERUM 107 MMOL/L (96-112); CO2 (CARBON DIOXIDE) 26 MMOL/L (24-34); GFR AFRICAN AMERICAN 21 ML/MIN (>=60); GFR NON AFRICAN AMERICAN 18 ML/MIN (>=60); GLOBULIN 4.5 G/DL (2.5-4.1); GLUCOSE, SERUM 108 MG/DL (60-99); POTASSIUM, SERUM 4.1 MMOL/L (3.5-5.3); SGOT(AST) 18 U/L (5-40); SGPT(ALT) 12 U/L (5-65); SODIUM, SERUM 144 MMOL/L (135-148); TOTAL BILIRUBIN 0.9 MG/DL (0-1.2); TOTAL PROTEIN 8.4 G/DL (6.0-8.5)
[2016-05-15 15:28] LABS: PLATELET ESTIMATE SLT DEC (ADEQUATE); TARGET CELLS OCC (1-2/OIF) (0-1/OIF)
[2016-05-15 15:30] LABS: GIANT PLATELET RARE
[~2016-05-15 18:07] MED LIST: *UNABLE1; COREG25 PO; DULERA 200 MCG/13 GM INH; HALF81 PO; HCTZ12.5 PO; IMDUR30 PO; L80 PO; LOTE40 PO; MAXIMUM D3 PO; NORV5 PO; SPIRO25 PO; ULTRAM50 PO
[2016-05-15 20:49] LABS: HEMATOCRIT 34.8 % (36.0-48.0); HEMOGLOBIN 11.2 g/dL (12.0-16.0)
[2016-05-16 02:27] LABS: HEMOGLOBIN 10.7 g/dL (12.0-16.0)
[2016-05-16 05:44] LABS: BASOPHILS 0.2 %; BASOPHILS ABSOLUTE 0.02 10/3/uL (0.0-0.16); EOSINOPHILS 0.4 %; EOSINOPHILS ABSOLUTE 0.03 10/3/uL (0.0-0.53); HEMATOCRIT 33.6 % (36.0-48.0); HEMOGLOBIN 10.9 g/dL (12.0-16.0); IMMATURE GRANULOCYTES 0.2 %; IMMATURE GRANULOCYTES ABSOLUTE 0.02 10/3/uL (0.0-0.11); LYMPHOCYTES 14.3 %; LYMPHOCYTES ABSOLUTE 1.15 10/3/uL (0.67-4.30); MANUAL DIFF NO %; MEAN CORPUS HGB CONC 32.4 g/dL (32.0-36.0); MEAN CORPUSCULAR HEMOGLOB 25.8 pg (26.0-34.0); MEAN CORPUSCULAR VOLUME 79.6 fL (80-100); MONOCYTES 6.6 %; MONOCYTES ABSOLUTE 0.53 10/3/uL (0.21-1.20); NEUTROPHILS 78.3 %; NEUTROPHILS ABSOLUTE 6.27 10/3/uL (2.02-8.40); PLATELET COUNT 103 10/3/uL (150-400); RBC DISTRIBUTION WIDTH 22.6 % (12.0-16.0); RED CELL COUNT 4.22 10/6/uL (4.0-5.6)
[2016-05-16 05:47] LABS: INTERNATIONAL NORMAL RATI 1.6 UNITS (-); PARTIAL THROMBO TIME 28.7 SEC (22.5-37.2); PROTIME (NOT ORD) 18.5 SEC (12.0-14.5)
[2016-05-16 06:10] LABS: A/G RATIO 0.9 (0.7-1.9); ALBUMIN 3.4 G/DL (3.5-5.0); CALCIUM, SERUM 8.6 MG/DL (8.5-10.4); CHLORIDE, SERUM 109 MMOL/L (96-112); CO2 (CARBON DIOXIDE) 22 MMOL/L (24-34); CREATININE 2.49 MG/DL (0.55-1.02); GFR AFRICAN AMERICAN 24 ML/MIN (>=60); GFR NON AFRICAN AMERICAN 20 ML/MIN (>=60); GLOBULIN 3.7 G/DL (2.5-4.1); GLUCOSE, SERUM 98 MG/DL (60-99); PHOSPHORUS, SERUM 3.2 MG/DL (2.5-4.5); SGOT(AST) 19 U/L (5-40); SGPT(ALT) 8 U/L (5-65); SODIUM, SERUM 145 MMOL/L (135-148); TOTAL BILIRUBIN 1.3 MG/DL (0-1.2); TOTAL PROTEIN 7.1 G/DL (6.0-8.5)
[2016-05-16 06:13] LABS: ALKALINE PHOSPHATASE 50 U/L (45-117); BUN (BLOOD UREA NITROGEN) 36 MG/DL (6-23)
[2016-05-16 06:16] LABS: PLATELET ESTIMATE SLT DEC (ADEQUATE)
[2016-05-16 12:59] LABS: HEMATOCRIT 32.3 % (36.0-48.0); HEMOGLOBIN 10.4 g/dL (12.0-16.0)
[2016-05-16 20:29] LABS: HEMATOCRIT 34.4 % (36.0-48.0); HEMOGLOBIN 11.1 g/dL (12.0-16.0)
[2016-05-17 00:19] LABS: HEMATOCRIT 32.3 % (36.0-48.0); HEMOGLOBIN 10.4 g/dL (12.0-16.0)
[2016-05-17 04:26] LABS: BASOPHILS 0.2 %; BASOPHILS ABSOLUTE 0.02 10/3/uL (0.0-0.16); EOSINOPHILS 1.1 %; HEMOGLOBIN 11.7 g/dL (12.0-16.0); IMMATURE GRANULOCYTES 0.2 %; IMMATURE GRANULOCYTES ABSOLUTE 0.02 10/3/uL (0.0-0.11); LYMPHOCYTES 11.3 %; LYMPHOCYTES ABSOLUTE 1.06 10/3/uL (0.67-4.30); MEAN CORPUSCULAR HEMOGLOB 25.8 pg (26.0-34.0); MEAN CORPUSCULAR VOLUME 80.6 fL (80-100); MONOCYTES 6.8 %; MONOCYTES ABSOLUTE 0.64 10/3/uL (0.21-1.20); NEUTROPHILS 80.4 %; NEUTROPHILS ABSOLUTE 7.58 10/3/uL (2.02-8.40); PLATELET COUNT 111 10/3/uL (150-400); RBC DISTRIBUTION WIDTH 22.2 % (12.0-16.0); RED CELL COUNT 4.54 10/6/uL (4.0-5.6); WHITE BLOOD CELLS 9.4 10/3/uL (4.5-10.5)
[2016-05-17 04:37] LABS: ALBUMIN 3.7 G/DL (3.5-5.0); BUN (BLOOD UREA NITROGEN) 36 MG/DL (6-23); CALCIUM, SERUM 8.6 MG/DL (8.5-10.4); CHLORIDE, SERUM 106 MMOL/L (96-112); CO2 (CARBON DIOXIDE) 25 MMOL/L (24-34); GFR AFRICAN AMERICAN 23 ML/MIN (>=60); GFR NON AFRICAN AMERICAN 20 ML/MIN (>=60); GLUCOSE, SERUM 115 MG/DL (60-99); PHOSPHORUS, SERUM 3.7 MG/DL (2.5-4.5); POTASSIUM, SERUM 4.1 MMOL/L (3.5-5.3); SODIUM, SERUM 141 MMOL/L (135-148)
[2016-05-17 04:40] LABS: HEMATOCRIT 36.6 % (36.0-48.0); MANUAL DIFF NO %
[2016-05-17 05:05] LABS: PLATELET ESTIMATE DEC (ADEQUATE); POIKILOCYTOSIS 1+ (5-10/OIF) (0-5/OIF); RBC MORPHOLOGY ABN (NORMAL)
[2016-05-17 09:11] LABS: HEMOGLOBIN 10.4 g/dL (12.0-16.0)
[2016-05-17 09:14] LABS: HEMATOCRIT 32.5 % (36.0-48.0)
[2016-05-17 14:17] LABS: HEMATOCRIT 33.1 % (36.0-48.0); HEMOGLOBIN 10.5 g/dL (12.0-16.0)
[2016-05-17 20:31] LABS: HEMATOCRIT 32.8 % (36.0-48.0); HEMOGLOBIN 10.3 g/dL (12.0-16.0)
[2016-05-18 03:29] LABS: BASOPHILS 0.4 %; BASOPHILS ABSOLUTE 0.03 10/3/uL (0.0-0.16); EOSINOPHILS 1.6 %; EOSINOPHILS ABSOLUTE 0.11 10/3/uL (0.0-0.53); HEMATOCRIT 34.5 % (36.0-48.0); LYMPHOCYTES ABSOLUTE 1.11 10/3/uL (0.67-4.30); MANUAL DIFF NO %; MEAN CORPUS HGB CONC 31.9 g/dL (32.0-36.0); MEAN CORPUSCULAR HEMOGLOB 25.7 pg (26.0-34.0); MEAN CORPUSCULAR VOLUME 80.6 fL (80-100); MONOCYTES 7.2 %; NEUTROPHILS 74.8 %; NEUTROPHILS ABSOLUTE 5.19 10/3/uL (2.02-8.40); PLATELET COUNT 112 10/3/uL (150-400); RED CELL COUNT 4.28 10/6/uL (4.0-5.6); WHITE BLOOD CELLS 6.9 10/3/uL (4.5-10.5)
[2016-05-18 03:36] LABS: INTERNATIONAL NORMAL RATI 1.5 UNITS (-); PROTIME (NOT ORD) 17.5 SEC (12.0-14.5)
[2016-05-18 03:42] LABS: ALBUMIN 3.4 G/DL (3.5-5.0); BUN (BLOOD UREA NITROGEN) 28 MG/DL (6-23); CALCIUM, SERUM 8.6 MG/DL (8.5-10.4); CHLORIDE, SERUM 107 MMOL/L (96-112); CO2 (CARBON DIOXIDE) 26 MMOL/L (24-34); CREATININE 2.53 MG/DL (0.55-1.02); GFR AFRICAN AMERICAN 23 ML/MIN (>=60); GFR NON AFRICAN AMERICAN 20 ML/MIN (>=60); GLUCOSE, SERUM 128 MG/DL (60-99); PHOSPHORUS, SERUM 2.9 MG/DL (2.5-4.5); SODIUM, SERUM 142 MMOL/L (135-148)
[2016-05-18 03:53] LABS: HYPOCHROMIA 1+ (3-10/OIF) (0-2/OIF)
[2016-05-18 03:54] LABS: POIKILOCYTOSIS 1+ (5-10/OIF) (0-5/OIF)
[2016-05-18 12:22] LABS: HEMATOCRIT 35.5 % (36.0-48.0); HEMOGLOBIN 11.3 g/dL (12.0-16.0)
[2016-05-19 06:55] LABS: BASOPHILS 0.6 %; BASOPHILS ABSOLUTE 0.03 10/3/uL (0.0-0.16); EOSINOPHILS 2.1 %; HEMOGLOBIN 10.4 g/dL (12.0-16.0); LYMPHOCYTES 19.2 %; MEAN CORPUS HGB CONC 31.5 g/dL (32.0-36.0); MEAN CORPUSCULAR HEMOGLOB 25.5 pg (26.0-34.0); MEAN CORPUSCULAR VOLUME 80.9 fL (80-100); MONOCYTES 10.4 %; MONOCYTES ABSOLUTE 0.49 10/3/uL (0.21-1.20); NEUTROPHILS 67.7 %; NEUTROPHILS ABSOLUTE 3.17 10/3/uL (2.02-8.40); PLATELET COUNT 111 10/3/uL (150-400); RBC DISTRIBUTION WIDTH 21.7 % (12.0-16.0); RED CELL COUNT 4.08 10/6/uL (4.0-5.6); WHITE BLOOD CELLS 4.7 10/3/uL (4.5-10.5)
[2016-05-19 06:56] LABS: MANUAL DIFF NO %
[2016-05-19 07:03] LABS: INTERNATIONAL NORMAL RATI 1.4 UNITS (-)
[2016-05-19 07:08] LABS: BUN (BLOOD UREA NITROGEN) 28 MG/DL (6-23); CALCIUM, SERUM 8.7 MG/DL (8.5-10.4); CHLORIDE, SERUM 108 MMOL/L (96-112); CO2 (CARBON DIOXIDE) 25 MMOL/L (24-34); CREATININE 2.52 MG/DL (0.55-1.02); GFR AFRICAN AMERICAN 23 ML/MIN (>=60); GFR NON AFRICAN AMERICAN 20 ML/MIN (>=60); GLUCOSE, SERUM 119 MG/DL (60-99); POTASSIUM, SERUM 3.8 MMOL/L (3.5-5.3); SODIUM, SERUM 142 MMOL/L (135-148)
[2016-05-19 07:36] LABS: ANISOCYTOSIS 1+ (5-10/OIF) (0-5/OIF); PLATELET ESTIMATE SLT DEC (ADEQUATE)
[2016-05-19 07:37] LABS: HYPOCHROMIA 1+ (3-10/OIF) (0-2/OIF)
[2016-05-19] MEDS ORDERED: AMOXIL500 MG PO (17:06)
[2016-05-19] MEDS ORDERED: ZANTAC150 MG PO (17:08)
[2016-05-19] MEDS ORDERED: PRILO PO (17:09)
== END 2016-05-19 18:39 | disposition home health service (06) | DRG 330 ==
LOC: ER 18:07 → 6NO 18:37
PROVIDERS: Emergency Medicine; Hospitalist; Internal Medicine; Internal Medicine Gastroenterology; Internal Medicine Nephrology
PROC: 4B02XSZ Measurement of Cardiac Pacemaker, External Approach (ICD-10-PCS; 2016-05-15)
PROC: 0DB68ZX Excision of Stomach, Via Natural or Artificial Opening Endoscopic, Diagnostic (ICD-10-PCS; 2016-05-16)
PROC: 0DQP8ZZ Repair Rectum, Via Natural or Artificial Opening Endoscopic (ICD-10-PCS; principal; 2016-05-18 08:00)
DX: K62.6 Ulcer of anus and rectum (principal); K92.2 Gastrointestinal hemorrhage, unspecified; I27.2 Other secondary pulmonary hypertension; D69.6 Thrombocytopenia, unspecified; D68.4 Acquired coagulation factor deficiency; N18.4 Chronic kidney disease, stage 4 (severe); N17.9 Acute kidney failure, unspecified; Z68.41 Body mass index [BMI] 40.0-44.9, adult; K29.50 Unspecified chronic gastritis without bleeding; K57.30 Diverticulosis of large intestine without perforation or abscess without bleeding; J03.90 Acute tonsillitis, unspecified; T46.5X5A Adverse effect of other antihypertensive drugs, initial encounter; I07.1 Rheumatic tricuspid insufficiency; E66.01 Morbid (severe) obesity due to excess calories; E11.9 Type 2 diabetes mellitus without complications; I12.9 Hypertensive chronic kidney disease with stage 1 through stage 4 chronic kidney disease, or unspecified chronic kidney disease; E78.5 Hyperlipidemia, unspecified; E78.00 Pure hypercholesterolemia, unspecified; K44.9 Diaphragmatic hernia without obstruction or gangrene; K31.9 Disease of stomach and duodenum, unspecified; D64.9 Anemia, unspecified; R20.0 Anesthesia of skin; Z91.041 Radiographic dye allergy status; Z91.048 Other nonmedicinal substance allergy status; Z88.8 Allergy status to other drugs, medicaments and biological substances; Z95.0 Presence of cardiac pacemaker; Z82.49 Family history of ischemic heart disease and other diseases of the circulatory system; Z90.49 Acquired absence of other specified parts of digestive tract; Z83.3 Family history of diabetes mellitus; Z91.040 Latex allergy status; Z80.0 Family history of malignant neoplasm of digestive organs; Z80.1 Family history of malignant neoplasm of trachea, bronchus and lung
CPT/HCPCS: 36415; 70450; 80048; 80053; 80069; 83735; 85014; 85018; 85025; 85610; 85730; 86850; 86900; 86901; 88305; 88342; 93005; 99285; A9270-GY; C9113; J0360

== ENCOUNTER 2016-06-09 17:57 | Inpatient (IN) | payer OTHER ==
--- NOTE | ~2016-06-09 | HP ---
History And Physical [place] [id number] [facility] [place]. [address] NAME: NIRAJ HAYS : 57 STATUS : ADM IN PAT#: [id number] AGE: 61 ADM/REG DATE : 06/09/16 MR#: [id number] REPORT SERV DATE: 06/10/16 DICTATED BY: ESTUARDO HUYNH DATE: 06/10/16 REPORT STATUS : Draft TRANSCRIBED BY: MODL DATE: 06/10/16 DATE OF ADMISSION: 06/09/2016 CHIEF COMPLAINT: Shortness of breath and bloating. HISTORY OF PRESENT ILLNESS: The patient is a 61-year-old female with history of hypertensive cardiomyopathy, type 2 diabetes, anemia, and pulmonary hypertension, who has very similar episode of right-sided abdominal pain plus 20-pound weight gain that has been reproducible. The patient has had recent admission for pulmonary hypertension, atrial septal defect, diabetes, right heart failure, nonsustained V-tach, chronic anemia, hypertension, morbid obesity, tricuspid regurg, gastroplasty, diverticulosis, adverse drug reaction to hydralazine, sick sinus syndrome requiring pacer, CKD with proteinuria, who has been having similar complaints with weight gain and discomfort, abdominal bloating over the last few weeks that has been constant moderate severity. Went to [facility]. Was told to drink more water, so she has been drinking over four bottles of water trying to keep up to help protect her kidneys, but this has made the bloating worse. There have been no radiating symptoms, but does have increased shortness of breath. No fever, chills, headache, or chest pain. Symptoms are worsened with activity, relieved by sitting up, still currently present. She does report that she had an ulcer that was clamped and believes that this may be also cause of having bloating. The patient is also reported to have irregular rhythm on interrogation of pacer a few weeks ago. ADDITIONAL REVIEW OF SYSTEMS: GENERAL: No fevers or chills, but just generalized weakness. EYES: No visual pain or changes. ENT: No sore throat or congestion. NEURO: No headache or confusion. SKIN: No rashes or bruising. RESPIRATORY: Positive shortness of breath and dyspnea on exertion. CV: No chest pain or palpitations. GI: No nausea, vomiting, but abdominal pain with bloating. : No dysuria or hematuria. MUSCULOSKELETAL: No myalgias, arthralgias above baseline. ENDO: Increased fatigue, but no polyuria. HEME: No bleeding or bruising. IMMUNOLOGIC: No rhinnorhea. PSYCH: No anxiety or confusion. 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 SURGERIES: Cholecystectomy. History And Physical [address] [address] NAME: NIRAJ HAYS : 57 STATUS : ADM IN [facility]#: [id number] AGE: 61 ADM/REG DATE : 06/09/16 MR#: [id number] REPORT SERV DATE: 06/10/16 DICTATED BY: ESTUARDO HUYNH DATE: 06/10/16 REPORT STATUS : Draft TRANSCRIBED BY: JESSE DATE: 06/10/16 FAMILY HISTORY: Diabetes and hypertension. SOCIAL HISTORY: No smoking, alcohol, or illicits. Recent loss of mother. ALLERGIES: HYDRALAZINE, DULERA AN IV CONTRAST. EKG: AV paced. MEDICATIONS: Only taking aspirin, Coreg, D3, nifedipine, and Demadex. PHYSICAL EXAMINATION: VITAL SIGNS: The patient's initial blood pressure 201/104, down to 150/80; pulse 70; respirations 19; O2 saturation 96% on room air; temperature 98.7. GENERAL: Morbidly obese. EYES: No scleral icterus. EOMI. ENT: Left naris patent. Right naris slightly congested. RESPIRATORY: Had basilar rhonchi with decreased lung volume. CHEST: Left-sided pacer site clean and dry. CV: Regular rate. No rubs. Does have a 2/6 systolic ejection murmur. GI: Distended. Right side tender to palpation. Negative rebound. : Deferred. MUSCULOSKELETAL: Moves all extremities. SKIN: Warm and dry. LYMPH: Bilateral 1+ edema. HEME: No bruising. NEURO: Alert and oriented. Sensation is grossly intact. PSYCH: Appropriate mood and affect. LABORATORY DATA AND IMAGING: CT, diffuse anasarca. Nonspecific hepatomegaly. Linear 1 x 14 mm metallic density between anterior rectal wall and posterior vaginal wall of uncertain etiology, new from prior CT. Postcholecystectomy. Nonspecific hepatomegaly. Cardiomegaly. Urinalysis, negative leukocyte esterase and nitrite, lactate 1.0. BNP 1415, has been over 2000 in the past. CMP; BUN and creatinine 37 and 2.83. LFTs within normal limits. Troponin 0.05. Potassium 4.2. Sodium 137. CBC; WBC 3.6, H and H 11.7 and 37.7, platelets 105. Portable chest, stable. ASSESSMENT AND PLAN: 1. Anasarca. 2. Hypertension. 3. Pulmonary hypertension. 4. Sick sinus syndrome. 5. Acute kidney injury with chronic kidney disease. 6. Pancytopenia. PLAN: 1. For anasarca diuresing is initiated in the emergency room. Additionally, has been recently encouraged to increase p.o. liquid for CKD per Nephrology. We will consult History And Physical [address] [place]. [address] NAME: NIRAJ HAYS : 57 STATUS : ADM IN PAT#: [id number] AGE: 61 ADM/REG DATE : 06/09/16 MR#: [id number] REPORT SERV DATE: 06/10/16 DICTATED BY: ESTUARDO HUYNH DATE: 06/10/16 REPORT STATUS : Draft TRANSCRIBED BY: MODTrupti DATE: 06/10/16 Nephrology in the setting of CRISTINA with CKD for assistance with fluid balance. The patient does report other additional 20-pound weight gain. We will need to have variable balance of I's and O's close monitoring and fluid balance with diuresis. 2. Hypertension. Clonidine patch with improvement from initial presentation. Shortness of breath also improved after having blood pressure control. 3. Pulmonary hypertension. O2. 4. Sick sinus syndrome, status post pacer interrogated in the emergency room, followed by Dr. Shannon. 5. CRISTINA with CKD. Sees Nephrology. Was told to increase p.o. intake for what appears to be increased creatinine, but now currently has a 20-pound weight gain, which has been steadily, but progressive and now causing more dyspnea. 6. Pancytopenia. We will monitor. DDN/MODL Estuardo Huynh MD / [id number] CC: Flynn Lester MD
--- NOTE | ~2016-06-09 | DS ---
Discharge Summary [facility] [address] [place]. [address] NAME: NIRAJ HAYS : 57 STATUS : DIS IN PAT#: [id number] AGE: 61 ADM/REG DATE : 06/09/16 MR#: [id number] REPORT SERV DATE: 06/11/16 DICTATED BY: ZACK FERRARA DATE: 06/11/16 REPORT STATUS : Draft TRANSCRIBED BY: MODL DATE: 06/11/16 ADMISSION DATE: 06/09/2016 DISCHARGE DATE: 06/11/2016 HISTORY: The patient is a 61-year-old female with a history of hypertension, CKD, and morbid obesity, who presented to the hospital with a complaint of shortness of breath and bloating. For further details, please refer to the H and P dictated by Dr. Fisher on 06/10/2016. HOSPITAL COURSE: Upon presentation to the hospital, the patient was admitted under Hospitalist Service for further management. The patient was noted to be in volume overload and started on IV diuresis. Also, her blood pressure was significantly elevated the patient was started on appropriate medications. Status post initiation of therapy, the patient significantly improved with resolution of her volume overload status and also control of her blood pressure. The patient has been evaluated by Nephrology. Of note, the patient is well known to the Nephrology Service. Per Nephrology, from a Nephrology standpoint, the patient has significantly improved and is therefore okay for discharge. Given clearance from Nephrology, given resolution of presenting symptoms, the patient will be discharged today to follow up with primary care physician. Plan has been discussed with the patient, who voices understanding and is agreeable with this plan. DISCHARGE DIAGNOSES: 1. Anasarca. 2. Hypertension. 3. Pulmonary hypertension. 4. Acute kidney injury on chronic kidney disease stage IV. 5. Sick sinus syndrome. 6. Pancytopenia. 7. Morbid obesity. DISCHARGE MEDICATIONS: 1. Aspirin 81 mg p.o. daily. 2. Torsemide 40 mg p.o. daily. 3. Carvedilol 25 mg p.o. twice a day. 4. Cholecalciferol 10,000 International Units cap p.o. q.7 days. 5. Nifedipine XL 30 mg p.o. b.i.d. DISPOSITION: The patient will be discharged to home. ACTIVITY: As tolerated. DIET: Renal diet. Greater than 30 minutes was spent coordinating care, planning discharge, providing counseling Discharge Summary [place] [address] [address] NAME: NIRAJ HAYS : 57 STATUS : DIS IN [facility]#: [id number] AGE: 61 ADM/REG DATE : 06/09/16 MR#: [id number] REPORT SERV DATE: 06/11/16 DICTATED BY: ZACK FERRARA DATE: 06/11/16 REPORT STATUS : Draft TRANSCRIBED BY: JESSE DATE: 06/11/16 JOE/JESSE Zack Ferrara MD / [id number] CC: Zack Ferrara MD
--- NOTE | ~2016-06-09 | PREOPHP ---
PreOp History and Physical [place] [address] [place]. [address] NAME: LYNN HAYS : 57 STATUS : ADM IN PAT#: [id number] AGE: 61 ADM/REG DATE : 06/09/16 MR#: [id number] REPORT SERV DATE: 06/10/16 DICTATED BY: CHRISTEL NAVARRO DATE: 06/10/16 REPORT STATUS : Draft TRANSCRIBED BY: JESSE DATE: 06/10/16 TIME: 2:30 p.m. REASON FOR CONSULTATION: Chronic kidney disease, now with fluid overload. 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 The patient has been followed in our clinic for the past 10-12 years. At that time, she had [employer]. She had a slow decline in GFR, creatinine now down to 2.86, and now admitted with fluid overload. Recent prolonged hospitalization as documented below. Suspect she needs adjustment of her diuretics and antihypertensive medications at this time. In addition, she has nephrotic- range proteinuria that is aggravating her overall volume status and a question of whether we can add back Aldactone or an ARB to help reduce the degree of proteinuria. PLAN: 1. Continue IV Bumex b.i.d. 2. Cut the Coreg dose down. 3. Procardia XL twice a day. 4. Check and see we can add Aldactone or an ARB based on her overall blood pressure and condition, likely add Aldactone first. The need for weight loss was discussed again with the patient. HISTORY OF PRESENT ILLNESS: Lynn Hays is a patient well known to our service. We have followed her for almost 12 years in the office and she was recently discharged here on 05/25/2016, having been admitted for acute gastrointestinal bleeding, found to have diverticulosis and a single solitary rectal ulcer. EGD showed chronic active gastritis. No intestinal metaplasia and H pylori negative. She was noted to have sick sinus syndrome, requiring a pacemaker placement. In addition, she was found to have pulmonary hypertension. There was a question of possible atrial septal defect with a failed BHANU. Nonsustained V- tach was noted during that admission as well and possible nasopharyngeal mass was noted and plans were to follow up with Dr. Pickens. Findings suggested acute adenoiditis. The patient has been followed up as an outpatient. She is still grieving the loss of her mother and has a component of depression. She was seen in our office and was felt to have volume overloaded. Placed on torsemide 40 mg a day and also Procardia XL 30 b.i.d. Amlodipine was stopped and continued on Coreg dose, but she got progressively short of breath with PND, orthopnea, increasing edema, and came into the ER, found to be volume overloaded. She has now responded very well to b.i.d. Bumex and currently feels better, but complains of lightheadedness on attempting to stand. No chest pain. No difficulty in voiding noted. PAST MEDICAL HISTORY: As documented above. Also, she carried a diagnosis of obesity, hypertension, and cholecystectomy. SOCIAL HISTORY: She does not smoke cigarettes. No alcohol or medication or street drug usage. Good family support. Recent of her mother noted. ALLERGIES: HYDRALAZINE. PreOp History and Physical [address] [address] NAME: LYNN HAYS : 57 STATUS : ADM IN [facility]#: [id number] AGE: 61 ADM/REG DATE : 06/09/16 MR#: [id number] REPORT SERV DATE: 06/10/16 DICTATED BY: CHRISTEL NAVARRO DATE: 06/10/16 REPORT STATUS : Draft TRANSCRIBED BY: JESSE DATE: 06/10/16 MEDICATIONS: As indicated above. REVIEW OF SYSTEMS: As per the HPI. PHYSICAL EXAMINATION: GENERAL: She is morbidly obese, in no acute distress. VITAL SIGNS: Her blood pressures are currently running in the 115/70s and heart rate is in the 60s. Afebrile. HEENT: Pupils are reacting to light. She is pale, but not jaundiced. Oral mucosa dry. No pharyngitis. NECK: Supple. No thyromegaly. Trachea is central. Air entry is equal bilaterally. CHEST: Clear to auscultation. CARDIAC: [place] beats not displaced. S1, S2. No rub. ABDOMEN: Mild distention. No hepatosplenomegaly. No tenderness, guarding, or rebound. Bowel sounds are normal. EXTREMITIES: No peripheral edema is noted at this time to 1+ edema. NEUROLOGIC: She is morbidly obese, but she is oriented to time, place, and person. Cranial nerves are intact. LABORATORY DATA: Her lab work shows her to have a chest x-ray done in the ER which showed stable mild cardiomegaly and pulmonary venous congestion. Lab Work: Procalcitonin was done in March of 0.57. Sodium 142, potassium 4.0, chloride 106, CO2 of 29, BUN 39, creatinine 2.86, calcium 8.3, and magnesium 2.5. Troponin was 0.05 on 06/09/2016. Hemoglobin is 10.9, hematocrit 34.6, white count 3.1, and platelet count 108,000. Urinalysis showed 100 mg/dL proteinuria, but no pyuria or hematuria. MG/MODL Christel Navarro M.D. / [id number] CC: Flynn Lester MD
[2016-06-09 16:56] LABS: BASOPHILS 0.6 %; BASOPHILS ABSOLUTE 0.02 10/3/uL (0.0-0.16); EOSINOPHILS 2.8 %; ER CBC TAT 0 Hrs 09 Mins; HEMATOCRIT 37.7 % (36.0-48.0); HEMOGLOBIN 11.7 g/dL (12.0-16.0); LYMPHOCYTES 24.2 %; LYMPHOCYTES ABSOLUTE 0.87 10/3/uL (0.67-4.30); MANUAL DIFF NO %; MEAN CORPUSCULAR HEMOGLOB 25.3 pg (26.0-34.0); MEAN CORPUSCULAR VOLUME 81.4 fL (80-100); MONOCYTES 8.1 %; MONOCYTES ABSOLUTE 0.29 10/3/uL (0.21-1.20); NEUTROPHILS 64.3 %; NEUTROPHILS ABSOLUTE 2.32 10/3/uL (2.02-8.40); PLATELET COUNT 105 10/3/uL (150-400); RBC DISTRIBUTION WIDTH 21.2 % (12.0-16.0); RED CELL COUNT 4.63 10/6/uL (4.0-5.6); WHITE BLOOD CELLS 3.6 10/3/uL (4.5-10.5)
[2016-06-09 17:07] LABS: A/G RATIO 0.7 (0.7-1.9); ALBUMIN 3.6 G/DL (3.5-5.0); ALKALINE PHOSPHATASE 73 U/L (45-117); BUN (BLOOD UREA NITROGEN) 37 MG/DL (6-23); CALCIUM, SERUM 8.9 MG/DL (8.5-10.4); CHLORIDE, SERUM 102 MMOL/L (96-112); CO2 (CARBON DIOXIDE) 28 MMOL/L (24-34); CREATININE 2.83 MG/DL (0.55-1.02); GFR AFRICAN AMERICAN 20 ML/MIN (>=60); GFR NON AFRICAN AMERICAN 17 ML/MIN (>=60); GLOBULIN 4.9 G/DL (2.5-4.1); GLUCOSE, SERUM 136 MG/DL (60-99); POTASSIUM, SERUM 4.2 MMOL/L (3.5-5.3); SGOT(AST) 22 U/L (5-40); SGPT(ALT) 14 U/L (5-65); SODIUM, SERUM 137 MMOL/L (135-148); TOTAL BILIRUBIN 0.8 MG/DL (0-1.2); TOTAL PROTEIN 8.5 G/DL (6.0-8.5)
[2016-06-09 17:23] LABS: PLATELET ESTIMATE SLT DEC (ADEQUATE)
[2016-06-09 17:24] LABS: ANISOCYTOSIS 1+ (5-10/OIF) (0-5/OIF); HYPOCHROMIA 1+ (3-10/OIF) (0-2/OIF)
[~2016-06-09 17:57] MED LIST changes: +AMOXIL500 MG PO; +PRILO PO; +ZANTAC150 MG PO
[2016-06-09 18:34] LABS: TROPONIN I 0.05 NG/ML (<0.05)
[2016-06-09 19:15] LABS: ASCORBIC ACID (UR NOT ORDER) NEG (NEG); BILIRUBIN, URINE NEGATIVE (NEG); ER URINALYSIS TAT 0 Hrs 09 Mins; KETONE, URINE NEGATIVE (NEG); LEUKOCYTE ESTERASE(NOT OR NEG (NEG); NITRITE (URINE) NEG (NEG); WBC (NOT ORDERED) (RFLEX) 1 (0-5)
[2016-06-09] MEDS ORDERED: DEMA20 PO (20:25)
[2016-06-09] MEDS ORDERED: NXL3 PO (20:26)
[2016-06-10 06:00] LABS: BASOPHILS 0.6 %; BASOPHILS ABSOLUTE 0.02 10/3/uL (0.0-0.16); EOSINOPHILS 2.9 %; EOSINOPHILS ABSOLUTE 0.09 10/3/uL (0.0-0.53); HEMATOCRIT 34.6 % (36.0-48.0); HEMOGLOBIN 10.9 g/dL (12.0-16.0); IMMATURE GRANULOCYTES 0.3 %; IMMATURE GRANULOCYTES ABSOLUTE 0.01 10/3/uL (0.0-0.11); LYMPHOCYTES 31.9 %; LYMPHOCYTES ABSOLUTE 0.99 10/3/uL (0.67-4.30); MEAN CORPUS HGB CONC 31.5 g/dL (32.0-36.0); MEAN CORPUSCULAR VOLUME 82.4 fL (80-100); MONOCYTES 10.6 %; MONOCYTES ABSOLUTE 0.33 10/3/uL (0.21-1.20); NEUTROPHILS 53.7 %; NEUTROPHILS ABSOLUTE 1.66 10/3/uL (2.02-8.40); PLATELET COUNT 108 10/3/uL (150-400); WHITE BLOOD CELLS 3.1 10/3/uL (4.5-10.5)
[2016-06-10 06:02] LABS: MANUAL DIFF NO %
[2016-06-10 06:12] LABS: BUN (BLOOD UREA NITROGEN) 39 MG/DL (6-23); CALCIUM, SERUM 8.3 MG/DL (8.5-10.4); CHLORIDE, SERUM 106 MMOL/L (96-112); CO2 (CARBON DIOXIDE) 29 MMOL/L (24-34); CREATININE 2.86 MG/DL (0.55-1.02); GFR AFRICAN AMERICAN 20 ML/MIN (>=60); GFR NON AFRICAN AMERICAN 17 ML/MIN (>=60); GLUCOSE, SERUM 107 MG/DL (60-99); SODIUM, SERUM 142 MMOL/L (135-148)
[2016-06-10 06:22] LABS: PLATELET ESTIMATE DEC (ADEQUATE); POIKILOCYTOSIS 1+ (5-10/OIF) (0-5/OIF); RBC MORPHOLOGY ABN (NORMAL)
[2016-06-11 06:36] LABS: BASOPHILS 0.4 %; BASOPHILS ABSOLUTE 0.01 10/3/uL (0.0-0.16); EOSINOPHILS 3.7 %; HEMOGLOBIN 10.4 g/dL (12.0-16.0); LYMPHOCYTES 35.9 %; LYMPHOCYTES ABSOLUTE 0.97 10/3/uL (0.67-4.30); MEAN CORPUS HGB CONC 30.6 g/dL (32.0-36.0); MEAN CORPUSCULAR HEMOGLOB 25.5 pg (26.0-34.0); MEAN CORPUSCULAR VOLUME 83.3 fL (80-100); MONOCYTES ABSOLUTE 0.27 10/3/uL (0.21-1.20); NEUTROPHILS ABSOLUTE 1.35 10/3/uL (2.02-8.40); PLATELET COUNT 104 10/3/uL (150-400); RBC DISTRIBUTION WIDTH 20.7 % (12.0-16.0); RED CELL COUNT 4.08 10/6/uL (4.0-5.6); WHITE BLOOD CELLS 2.7 10/3/uL (4.5-10.5)
[2016-06-11 06:37] LABS: MANUAL DIFF NO %
[2016-06-11 06:40] LABS: INTERNATIONAL NORMAL RATI 1.5 UNITS (-); PROTIME (NOT ORD) 17.5 SEC (12.0-14.5)
[2016-06-11 06:50] LABS: ALBUMIN 3.1 G/DL (3.5-5.0); ALKALINE PHOSPHATASE 67 U/L (45-117); BUN (BLOOD UREA NITROGEN) 40 MG/DL (6-23); CALCIUM, SERUM 8.4 MG/DL (8.5-10.4); CHLORIDE, SERUM 105 MMOL/L (96-112); CO2 (CARBON DIOXIDE) 30 MMOL/L (24-34); DIRECT BILIRUBIN 0.2 MG/DL (0.0-0.4); GFR AFRICAN AMERICAN 20 ML/MIN (>=60); GFR NON AFRICAN AMERICAN 17 ML/MIN (>=60); GLUCOSE, SERUM 108 MG/DL (60-99); INDIRECT BILIRUBIN(NOT ORDER) 0.3 MG/DL (0.1-0.9); POTASSIUM, SERUM 4.1 MMOL/L (3.5-5.3); SGOT(AST) 14 U/L (5-40); SGPT(ALT) 12 U/L (5-65); SODIUM, SERUM 142 MMOL/L (135-148); TOTAL BILIRUBIN 0.5 MG/DL (0-1.2); TOTAL PROTEIN 7.3 G/DL (6.0-8.5)
[2016-06-11 06:51] LABS: PHOSPHORUS, SERUM 3.8 MG/DL (2.5-4.5)
[2016-06-11 07:19] LABS: ANISOCYTOSIS 1+ (5-10/OIF) (0-5/OIF); EOSINOPHILS 4 %; EOSINOPHILS ABSOLUTE (CALC) 0.11 10/3/uL (0.0-0.53); LYMPHOCYTES 28 %; LYMPHOCYTES ABSOLUTE (CALC) 0.76 10/3/uL (0.67-4.30); MONOCYTES 6 %; MONOCYTES ABSOLUTE (CALC) 0.16 10/3/uL (0.21-1.20); NEUTROPHILS ABSOLUTE (CALC) 1.67 10/3/uL (2.02-8.40); PLATELET ESTIMATE SLT DEC (ADEQUATE); SEGMENTED NEUTROPHIL (0) 62 %; TOTAL NUCLEATED CELLS 100
[2016-06-11 07:20] LABS: HYPOCHROMIA 1+ (3-10/OIF) (0-2/OIF)
[2016-06-11 10:15] LABS: ASCORBIC ACID (UR NOT ORDER) NEG (NEG); BILIRUBIN, URINE NEGATIVE (NEG); KETONE, URINE NEGATIVE (NEG); LEUKOCYTE ESTERASE(NOT OR NEG (NEG); WBC (NOT ORDERED) (RFLEX) < 1 (0-5)
== END 2016-06-11 18:02 | disposition home or self-care (01) | DRG 683 ==
LOC: ER 17:57 → 7NO 23:30
PROVIDERS: Emergency Medicine; Hospitalist; Internal Medicine Nephrology; Student in an Organized Health Care Education/Training Program
DX: N17.9 Acute kidney failure, unspecified (principal); Z68.42 Body mass index [BMI] 45.0-49.9, adult; D61.818 Other pancytopenia; I27.2 Other secondary pulmonary hypertension; I49.5 Sick sinus syndrome; E66.01 Morbid (severe) obesity due to excess calories; I12.9 Hypertensive chronic kidney disease with stage 1 through stage 4 chronic kidney disease, or unspecified chronic kidney disease; N18.4 Chronic kidney disease, stage 4 (severe); R60.1 Generalized edema
CPT/HCPCS: 71010; 71020; 74176; 80048; 80053; 80069; 80076; 81001; 83605; 83690; 83735; 83880; 84484; 85025; 85610; 87040; 93005; 96374; 99291; A9270-GY; J1170; J2405

== ENCOUNTER 2016-07-09 06:21 | Inpatient (IN) | payer OTHER ==
[2016-07-08 22:57] LABS: A/G RATIO 0.9 (0.7-1.9); ALBUMIN 3.8 G/DL (3.5-5.0); ALKALINE PHOSPHATASE 95 U/L (45-117); BUN (BLOOD UREA NITROGEN) 41 MG/DL (6-23); CALCIUM, SERUM 9.1 MG/DL (8.5-10.4); CHLORIDE, SERUM 106 MMOL/L (96-112); CO2 (CARBON DIOXIDE) 28 MMOL/L (24-34); GFR AFRICAN AMERICAN 17 ML/MIN (>=60); GFR NON AFRICAN AMERICAN 14 ML/MIN (>=60); GLOBULIN 4.2 G/DL (2.5-4.1); GLUCOSE, SERUM 152 MG/DL (60-99); POTASSIUM, SERUM 4.2 MMOL/L (3.5-5.3); SGOT(AST) 23 U/L (5-40); SGPT(ALT) 16 U/L (5-65); SODIUM, SERUM 142 MMOL/L (135-148); TOTAL BILIRUBIN 0.8 MG/DL (0-1.2)
[2016-07-08 23:25] LABS: ANISOCYTOSIS 1+ (5-10/OIF) (0-5/OIF); OVALOCYTES 1+ (3-10/OIF) (0-2/OIF); PLATELET ESTIMATE DEC (ADEQUATE)
--- NOTE | ~2016-07-09 | HP ---
History And Physical [place] [address] [facility] [place]. [address] NAME: NIRAJ HAYS : 57 STATUS : ADM IN [facility]#: [id number] AGE: 61 ADM/REG DATE : 07/09/16 MR#: [id number] REPORT SERV DATE: 07/09/16 DICTATED BY: KEL DUNLAP DATE: 07/09/16 REPORT STATUS : Draft TRANSCRIBED BY: MODL DATE: 07/09/16 DATE OF ADMISSION: 07/09/2016 HISTORY OF PRESENT ILLNESS: Chief complaint by patient is that progressive gain in body weight, which patient thinks is water weight and progressive swelling in the legs that spread to her abdominal area and the patient finally became dyspneic in the last day or two, and she decided to come into the ER. She said that all the swelling in her body is progressive and has been happening for the last week or so. Other than this, the patient has no other complaints whatsoever. She does complain of mild abdominal discomfort and she thinks that it is either because of gas or fluid, but has no definitive abdominal pain. The patient denies any headaches, blurry vision, chest pain, fever, cough, nausea, vomiting, diarrhea, dysuria, hematuria, or any blood in stool. The patient has no other complaints and review of other systems is negative. PAST MEDICAL HISTORY: Significant for, 1. Chronic right ventricular failure. 2. Chronic left ventricular failure also, which is milder than the right ventricular failure, and an ejection fraction of 50% has been recorded on echocardiogram in 03/2016. 3. Severe tricuspid regurgitation. 4. Chronic pulmonary hypertension. 5. Chronic kidney disease, stage 3. 6. Status post pacemaker placement. 7. Her senior oracle soa developer is Dr. Navarro, whom she sees on a regular basis. 8. History of multiple hospitalizations in the recent past for the same complaints, which is basically anasarca and volume overload. SOCIAL HISTORY: The patient does not smoke or drink or do any drugs. She lives with a friend currently, but lives independently at her house. She has a son who lives close by. FAMILY HISTORY: Significant for heart disease in the mother. MEDICATIONS: Medications that she takes on a regular basis at home and allergies include the following. The patient is allergic to iodinated contrast media, adhesive tape, hydralazine, Dulera, and her regular home medications include 81 mg of aspirin a day, Coreg 25 mg p.o. b.i.d., vitamin D3, Procardia XL 30 mg once a day, torsemide 40 mg once a day. PHYSICAL EXAMINATION: GENERAL: On examination, the patient is alert, oriented, and is able to complete a sentence without getting short of breath. Her skin and mucous membranes appear hydrated well. VITAL SIGNS: Her vital signs show that her blood pressure is 150/80 right now and then her oxygen saturation is 96% on 2 L of oxygen per nasal cannula. The patient's heart rate is about 70 per minute, and there seems to be some extra beats that I hear. The patient is afebrile. HEENT: There is no facial asymmetry. History And Physical [address] [address] NAME: NIRAJ HAYS : 57 STATUS : ADM IN [facility]#: [id number] AGE: 61 ADM/REG DATE : 07/09/16 MR#: [id number] REPORT SERV DATE: 07/09/16 DICTATED BY: KEL DUNLAP DATE: 07/09/16 REPORT STATUS : Draft TRANSCRIBED BY: JESSE DATE: 07/09/16 NECK: There is JVD. CARDIOVASCULAR: S1, S2 is appreciated. Paced rhythm noted. There is definitive systolic murmur noted. There are no gallops noted at this time. RESPIRATORY: I do hear a few bibasilar crackles, but I am not sure if this is because of body habitus and poor air entry to the bases of the lungs that have caused the bases of the lungs to collapse or is there really fluid in her lungs. ABDOMEN: The abdomen is bloated with ascites. There is no hepatosplenomegaly that I could appreciate. There is mild generalized tenderness, but no guarding or any particular area of significant tenderness. Bowel sounds are sluggish. EXTREMITIES: There is 2+ pedal edema bilaterally. Pedal pulses are felt. NEUROLOGICAL: No focal deficits. MUSCULOSKELETAL: Grossly normal. PSYCHIATRIC: Grossly normal. LABS: The labs that I have on this patient include a CBC that shows a WBC count of 3.3, hemoglobin and hematocrit 11.9 and 37, platelet count of 96. BNP is 2509. Electrolytes show sodium 142, potassium 4.2, BUN is 41, creatinine is 3.3. BNP is elevated at 2509. Troponin I 0.04. LFTs are normal. Chest x-ray shows moderate to severe pulmonary hypertension, and cardiomegaly with pacer in place. As the patient complained of abdominal pain, CT scan of the abdomen that was done in the ER shows significant amount of ascites. ASSESSMENT: 1. My assessment on this patient is volume overload/anasarca from acute right ventricular failure. 2. Status post pacer placement. 3. History of biventricular failure with a recent echo that was done on 03/2016 that shows EF of 50%. 4. Acute kidney injury on chronic kidney disease, stage 4, followed by Dr. Navarro. PLAN: 1. The plan on this patient is to admit to [address] [place] [address] on cardiac telemetry and get both Cardiology and Renal to consult. 2. Give her supportive care with oxygen and definitely diurese her. At this time, we will give her Bumex 2 mg IV q.8 hours for the next 24 hours until changed by Cardiology or Renal or suggested otherwise. 3. We will insert Reynoso to gravity, so we can measure her input and output exactly. 4. We will also go ahead and keep her on DVT prophylaxis, and in addition to that, decrease her Coreg to 6.25 mg p.o. b.i.d., and again if cardiology suggests otherwise, we can go up on the dose again. For now, the patient's heart rate seems to be in the 60s to 70s, and in addition to that, since we are diuresing her a whole lot, we do not want her blood pressure to drop any further and hence the decrease in Coreg as of now. We could increase it to 12.5 p.o. b.i.d. tomorrow and then back to her regular dose the day after based on Cardiology and Renal opinion. I will follow this patient today and tomorrow. History And Physical [address] [address] NAME: NIRAJ HAYS : 57 STATUS : ADM IN PAT#: [id number] AGE: 61 ADM/REG DATE : 07/09/16 MR#: [id number] REPORT SERV DATE: 07/09/16 DICTATED BY: KEL DUNLAP DATE: 05/28/17 REPORT STATUS : Draft TRANSCRIBED BY: MODL DATE: 07/09/16 RRA/MODL Kel Dunlap M.D. / [id number] CC: Kel Dunlap M.D.
--- NOTE | ~2016-07-09 | DS ---
Discharge Summary [facility] [address] [place]. [address] NAME: NIRAJ HAYS : 57 STATUS : DIS IN PAT#: [id number] AGE: 61 ADM/REG DATE : 07/09/16 MR#: [id number] REPORT SERV DATE: 07/19/16 DICTATED BY: SATHYA ROMERO DATE: 07/18/16 REPORT STATUS : Draft TRANSCRIBED BY: MODL DATE: 07/18/16 ADMISSION DATE: 07/09/2016 DISCHARGE DATE: 07/18/2016 DISCHARGE DIAGNOSES: 1. Acute on chronic diastolic and systolic heart failure and known ejection fraction of 25%. 2. Cor pulmonale and pulmonary hypertension. 3. Volume overload with ascites, anasarca. 4. Pancytopenia that is stable. 5. Chronic kidney disease stage 4, most recent creatinine 3.05. 6. Hypertension. 7. Dyspepsia. DISCHARGE MEDICATIONS: Aspirin 81 mg daily, Coreg 25 mg twice a day, vitamin D3 of 10,000 units weekly, Demadex 40 mg twice a day, Diovan 320 mg daily, Procardia XL 30 mg twice a day. HISTORY OF PRESENT ILLNESS: This is a pleasant 61-year-old female, who originally presented with progressive weight gain, swelling in the legs and abdominal area. Please see the initial H and P of Dr. Shamika Childers. The patient was admitted to the Hospitalist Service for further evaluation and treatment. Lab work was ordered and followed. She was started on aggressive diuresis as well. CONSULTANTS DURING THIS ADMISSION: Include Cardiology, Dr. Forrest Cooper; [facility], Dr. Flynn Abdalla; and Hematology, Dr. Álvaro Gerardo. PROCEDURES AND IMAGING DURING THIS ADMISSION: Include initial CT scan of the abdomen and pelvis that showed ascites and extensive body anasarca, hepatomegaly with some early nodular features and cardiomegaly, passive congestive change in liver. Echocardiogram that showed an ejection fraction of 25% with severe global left ventricular systolic dysfunction and moderate left ventricular diastolic dysfunction, mild aortic mitral and tricuspid regurgitation, moderate left atrial enlargement, and an abdominal ultrasound that showed no pockets of drainable ascites by ultrasound guidance. HOSPITAL COURSE: As stated, the patient was started on diuresis and was also scheduled initially for a paracentesis, however, the patient did not wish to proceed with this and the above-described ultrasound was done. Her diuretics were adjusted with the help of [facility] and her beta joanie was titrated upward under the watchful eye of Cardiology Services. She slowly began to diurese, but had slight bump in her creatinine level which was followed with daily lab work. The above-described echocardiogram was done showing a decline in her ejection fraction to 25% and she was seen by the Heart Failure Education. Her lab work did show pancytopenia that was followed by Hematology, Dr. Gerardo, suspecting that this was due to hepatic congestion and the counts remained relatively stable. Her kidney function and the creatinine level plateaued and Nephrology and Cardiology both agreed that she was safe for discharge with outpatient followup and she was Discharge Summary [address] [place]. [address] NAME: NIRAJ HAYS : 57 STATUS : DIS IN PAT#: [id number] AGE: 61 ADM/REG DATE : 07/09/16 MR#: [id number] REPORT SERV DATE: 07/19/16 DICTATED BY: SATHYA ROMERO DATE: 07/18/16 REPORT STATUS : Draft TRANSCRIBED BY: MODL DATE: 07/18/16 felt safe for discharge to home on 07/18/2016 with the above described medications, to follow up with [facility], Dr. Navarro, in three weeks. She will schedule an appointment with Cardiology, Dr. Moss and she has an appointment on 08/03/[address] Oro in his office and also if able to schedule an outpatient appointment with Dr. Conrad Damon, GI, given her concern for her dyspepsia. Overall, the patient improved symptomatically and is ready to go home. Questions were answered at bedside extensively. Please note greater than 30 minutes was spent on this discharge for medication teaching, heart failure teaching, follow up planning, and further disposition. DICTATED BY: Sathya Romero NP CSC/JESSE Sathya Romero NP / [id number] CC: Rj Cagle M.D.
--- NOTE | ~2016-07-09 | CN ---
Consultation Report [facility] [address] [place]. [address] NAME: NIRAJ HAYS : 57 STATUS : ADM IN [facility]#: [id number] AGE: 61 ADM/REG DATE : 07/09/16 MR#: [id number] REPORT SERV DATE: 07/12/16 DICTATED BY: JORGE MYERS MARK SANDERS DATE: 07/11/16 REPORT STATUS : Draft TRANSCRIBED BY: MODL DATE: 07/11/16 CONSULTATION DATE OF CONSULTATION: 07/11/2016 REASON FOR CONSULTATION: Thrombocytopenia CLINICIAN REQUESTING CONSULTATION: Radha Brooks MD CHIEF COMPLAINT: Swelling. HISTORY OF PRESENT ILLNESS: Ms. Hays is a 61-year-old female who is admitted with anasarca and volume overload. Review of her chart shows she has been admitted several times for this. She has a history of cor pulmonale with recurrent edema. She has had a pacemaker placed in the past. She also has a history of diabetes, hypertension, and obesity. In May, she had an EGD with Dr. Neves which revealed moderate inflammation due to congestion in the gastric body. A colonoscopy at that time showed diverticulosis and an ulcer in the rectum. The reason for those scopes were due to melena and hematochezia. She was noted on labs during this admission to have a decrease in her platelet count. On 06/09/2016, platelets were 105,000, have decreased to 77,000 today. She did receive heparin 5000 units subcu on admission on 07/09/2016, but this was discontinued on 07/10/2016. She denies any current bleeding or bruising. She states she is feeling somewhat better but remains swollen. She reports some mild abdominal pain without nausea or vomiting. CT of the abdomen and pelvis without contrast on 07/09/2016 showed ascites with extensive body anasarca. Hepatomegaly was noted with some early nodular features and suggestion of collateral vasculature formation. There was concern for the development of some varices. She also was noted to have cardiomegaly. PAST MEDICAL HISTORY: 1. Right ventricular heart failure. 2. Left ventricular heart failure, status post pacemaker. 3. Severe tricuspid regurgitation. 4. Pulmonary hypertension. 5. Chronic kidney disease stage 3. 6. Diabetes. 7. Hypertension. 8. Hyperlipidemia. 9. Obesity. SOCIAL HISTORY: She does not smoke or use alcohol. She lives with a friend. FAMILY HISTORY: Not significant for any blood diseases. ALLERGIES: NO KNOWN DRUG ALLERGIES. Consultation Report [address] [place]. [address] NAME: NIRAJ HAYS : 57 STATUS : ADM IN PAT#: [id number] AGE: 61 ADM/REG DATE : 07/09/16 MR#: [id number] REPORT SERV DATE: 07/12/16 DICTATED BY: JORGE MYERS MARK SANDERS DATE: 07/11/16 REPORT STATUS : Draft TRANSCRIBED BY: JESSE DATE: 07/11/16 HOME MEDICATIONS: Reviewed on her chart. REVIEW OF SYSTEMS: A 12-point review of systems negative except as per HPI. PHYSICAL EXAMINATION: VITAL SIGNS: Blood pressure 160/85, pulse 69, temperature 98.5. GENERAL APPEARANCE: Obese, no acute distress. HEENT: Anicteric sclerae. Oropharynx clear. NECK: Supple. No lymphadenopathy. CARDIOVASCULAR: Regular rate and rhythm. Normal S1, S2. LUNGS: Clear to auscultation bilaterally. Fair effort. ABDOMEN: Distended but soft. Ascites is present. EXTREMITIES: Positive for edema. LABORATORY DATA: CBC from 07/10/2016 reveals a white count of 3100 with hemoglobin 11.3 g, and platelets of 77,000. Creatinine is 3.1 today, albumin is 3.0. ASSESSMENT AND PLAN: Ms. Hays is a 61-year-old female with chronic biventricular heart failure and passive congestion of her liver, now admitted with anasarca and ascites. She was noted to have decrease in her platelet count yesterday. I do not have a CBC today to compare to. She additionally has some mild leukopenia and mild anemia. Her cytopenias are most likely due to hepatic congestion of the liver. I have a much less concern for primary bone marrow disorder. I would recommend that we follow her blood counts closely. I will order a CBC for the morning. In regard to her heart failure and chronic kidney disease, I would defer that to my colleagues. I discussed this with the patient, she is in agreement. LAWRENCE/JESSE Álvaro Myers IV, M.D. / [id number] CC: Radha Brooks MD
--- NOTE | ~2016-07-09 | CN ---
Consultation Report [place] [id number] [facility] [place]. [address] NAME: LYNN HAYS : 57 STATUS : ADM IN [facility]#: [id number] AGE: 61 ADM/REG DATE : 07/09/16 MR#: [id number] REPORT SERV DATE: 07/09/16 DICTATED BY: FORREST COOPER DATE: 07/09/16 REPORT STATUS : Draft TRANSCRIBED BY: MODL DATE: 07/09/16 CARDIOLOGY CONSULTATION DATE OF CONSULTATION: INDICATIONS: Anasarca, ascites, cor pulmonale. HISTORY OF PRESENT ILLNESS: Lynn Hays is a 61-year-old female who has been admitted to the hospital several times this year with shortness of breath, anasarca, volume overload. She is back again with several days of progressive shortness of breath, some sensation of bloating, and discomfort in her abdomen. She did not exert herself to any significant degree. No syncope or presyncope. This is her fourth ER visit so far this year. No complaints of angina. Does have chronic lower extremity edema. She received a pacemaker earlier this year for marked sinus node dysfunction. PAST MEDICAL HISTORY: Cor pulmonale and recurrent edema, pulmonary hypertension, severe obesity, hypertension, diabetes, hyperlipidemia, sinus node dysfunction, and pacemaker. FAMILY HISTORY: Known for hypertension, diabetes. SOCIAL HISTORY: No alcohol. No tobacco. ALLERGIES: IODINE TAPE, DULERA, AND METASONE. HOME MEDICATIONS: [facility] home medicine form and reviewed. REVIEW OF SYSTEMS: As per the HPI. Otherwise, all review of systems negative. PHYSICAL EXAMINATION: VITAL SIGNS: Oxygen saturation 95% on room air, with a presenting blood pressure of 160/101, pulse 82, the patient is afebrile. GENERAL: Appears stated age, no distress. EYES: Sclerae anicteric, no arcus senilis. MOUTH: Oral mucosa moist, lips acyanotic. NECK: Jugular venous pressure normal, no carotid bruits. LUNGS: Diminished breath sounds, bilateral bases, likely secondary to body habitus and decreased effort. CARDIAC: Regular rate and rhythm, no murmurs, gallops or rubs. ABDOMEN: Morbidly obese. Soft, nondistended, nontender. EXTREMITIES: 2+ edema. SKIN: Warm and dry. Consultation Report [place] [id number] [facility] [place]. [address] NAME: LYNN HAYS : 57 STATUS : ADM IN PAT#: [id number] AGE: 61 ADM/REG DATE : 07/09/16 MR#: [id number] REPORT SERV DATE: 07/09/16 DICTATED BY: FORREST COOPER DATE: 07/09/16 REPORT STATUS : Draft TRANSCRIBED BY: MODL DATE: 07/09/16 NEURO/PSYCH: Alert and oriented, nonfocal, mood appropriate. DATA: Sodium is 142, potassium 4.2, creatinine 3.3. BNP 02623. Hemoglobin 11.9, platelets 96, white count 3.3. Abdominal CT shows anasarca and ascites. Chest x-ray shows pulmonary hypertension and cardiomegaly without acute vascular congestion. Electrocardiogram shows AV sequential paced rhythm with frequent ectopy. IMPRESSION: 1. Anasarca and ascites. 2. Cor pulmonale. 3. Chronic kidney disease. 4. Sinus node dysfunction, status post pacemaker. 5. Diabetes. 6. Obesity. RECOMMENDATIONS: Diuresis. Follow renal function. Discussed with the patient, all questions answered. GWEN/JESSE Forrest Cooper M.D. / [id number] CC: Shamika Childers M.D.
--- NOTE | ~2016-07-09 | CN ---
Consultation Report [facility] [address] [place]. [address] NAME: NIRAJ HAYS : 57 STATUS : ADM IN PAT#: [id number] AGE: 61 ADM/REG DATE : 07/09/16 MR#: [id number] REPORT SERV DATE: 07/09/16 DICTATED BY: ZACK ABDALLA DATE: 07/09/16 REPORT STATUS : Draft TRANSCRIBED BY: MODL DATE: 07/09/16 CONSULTATION DATE OF CONSULTATION: REASON FOR CONSULTATION: A volume overload and anasarca. HISTORY OF PRESENT ILLNESS: This is a very pleasant, 61-year-old, obese female patient, with known history of CKD stage 3 to stage [address] Barber Navarro. She is seen chronically in our office and was last seen approximately 3 months ago according to the patient. She reports to [facility] with a complaint of increasing dyspnea and a 20 pounds weight gain. She states that her symptomatology has become worse over the last three to four weeks. She reports previous followup in the office, but no recent modification of her medication pattern. In May of 2016, creatinine was deemed stable at 2.5, during inpatient evaluation prior to sign off with planned followup at our office. She is noticeably dyspneic, but not overtly tachypneic to evaluation today. Creatinine is at 3.30 with reflected GFR of 17 mL/minute. The patient is awake and alert, standing in her room during evaluation. Denies current chest pain. No nausea, vomiting, or diarrhea. PAST MEDICAL HISTORY: Positive for chronic kidney disease stage 3 to stage [address] Barber Navarro. Last available creatinine baseline noted by our office was at 2.1 to 2.4 in March of 2016. She was dismissed at 2.5 on 05/18/2016 from our care while inpatient hospital. It is not clear her most recent baseline at the office as it is the weekend and I am unable to access [facility] data. 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 She has had a previous cholecystectomy. SOCIAL HISTORY: no smoking, no EtOH, and no illicit drugs noted on her medical social history. FAMILY HISTORY: Noncontributory and not reviewed during this consultation and dictation. ALLERGIES: SHE LISTS ALLERGIES TO IODINE, CONTRAST MEDIA, ADHESIVE TAPE, HYDRALAZINE, AND DULERA. ACTIVE MEDICATIONS: ASA 81 mg daily, carvedilol 25 mg p.o. b.i.d., cholecalciferol D3 1000 units p.o. q.7 days, Procardia 30 mg p.o. b.i.d., and torsemide 40 mg daily. REVIEW OF SYSTEMS: Consultation Report [place] [id number] [place]. [address] NAME: NIRAJ HAYS : 57 STATUS : ADM IN [facility]#: [id number] AGE: 61 ADM/REG DATE : 07/09/16 MR#: [id number] REPORT SERV DATE: 07/09/16 DICTATED BY: ZACK ABDALLA DATE: 07/09/16 REPORT STATUS : Draft TRANSCRIBED BY: JESSE DATE: 07/09/16 Review of systems is completed. Please see HPI for pertinent details. PHYSICAL EXAMINATION: VITAL SIGNS: Blood pressure at 182/96, temperature 98.0, respiratory rate at 16, heart rate 74 beats per minute and paced. GENERAL: She is an obese, female patient is noticeably short of breath, but not overtly tachypneic. Standing at her bedside during evaluation this afternoon. HEENT: Normocephalic and atraumatic. Normal ocular movements. No scleral icterus. No conjunctival pallor is appreciated. NECK: Supple. No thyromegaly. No JVD or mass. CHEST: Shows positive S1 and S2 with a paced rhythm. No rubs or gallops. LUNGS: Diminished throughout with no overt rhonchi or wheezes. She does not exhibit overt tachypnea, but is somewhat dyspneic. GASTROINTESTINAL: Shows a rounded, obese, non-firm abdomen to evaluation. No appreciable mass or tenderness. GENITOURINARY: Examination is deferred. EXTREMITIES: Show positive pulses to all four extremities. She has approximately 2+ lower extremity edema centralized primarily in her thighs and there is also edema centralized in her abdominal wall. She does have minimal edema to her lower extremities. NEUROLOGIC: She appears to be grossly intact. Nonfocal. SKIN: Warm, dry, and intact to visualized surfaces. No rash, lesions, or ecchymosis. LABORATORY AND DIAGNOSTIC DATA: Pertinent laboratories and imaging to this evaluation are as follows. CT of the abdomen and pelvis demonstrates ascites with an extensive body anasarca, hepatomegaly with some early nodular features to the anterior surface, suggestion of some collateral vasculature forming, no change in retroperitoneal adenopathy, cardiomegaly with question of possibility of right-sided heart failure with passive congestion noted in the liver. PA chest view identifies cardiomegaly with pacemaker, pulmonary hypertension noted here is that her lung jin are clear. B-natriuretic peptide 2509.3. Comprehensive metabolic panel: Sodium 142, potassium 4.2, chloride 106, CO2 28, BUN 41, creatinine 3.30, reflected GFR 17 mL/minute, glucose of 152, calcium 9.1, total protein 8.0, albumin 3.8, globulin 4.2, alkaline phos 95, ALT and AST at 16 and 23 respectively; lipase 116, and troponin 0.04. Urinalysis does identify 100 mg/dL of proteinuria. Glucose is negative. Ketones are negative. Bilirubin is negative. She does have a rare amount of bacteria as well as mucous. CBC shows a white blood cell count of 3.3, RBC 4.55 hemoglobin 11.9 hematocrit 37.0, and platelets at 96. IMPRESSION AND PLAN: This is a chronic kidney disease stage 3 to stage 4, female patient, followed in our office by Dr. Barber Navarro, with most recent medical history as listed above, and baseline creatinine. She returns to [facility] in volume overload, with ascites, thrombocytopenia, shortness of breath, and proteinuria. It does not appear that a recent echocardiogram has been done. Cardiology has evaluated her and concurs with further diuresis, considering that her CT of the abdomen and pelvis does demonstrate a large amount of ascites, and may be beneficial to undertake paracentesis. We will quantify her urinary protein excretion. Fluid restrict her at 1500 mL daily. Sodium Consultation Report [facility] [address] [place]. [address] NAME: NIRAJ HAYS : 57 STATUS : ADM IN [facility]#: [id number] AGE: 61 ADM/REG DATE : 07/09/16 MR#: [id number] REPORT SERV DATE: 07/09/16 DICTATED BY: ZACK ABDALLA DATE: 07/09/16 REPORT STATUS : Draft TRANSCRIBED BY: JESSE DATE: 07/09/16 restricted at 2 g. Undertake a repeat echocardiogram given her cardiac history with pulmonary pressures. Trend her troponins, and undertake a paracentesis, and analysis with albumin, total protein, and culture and Gram stain. Follow her closely with serial laboratories, strict I's and O's, and daily weights. The patient states today on evaluation that she would be reluctant to initiate dialysis, but would do so of medical necessity were present. Currently, we are hopeful to return her to a reasonable baseline with her volume status and maintain a reasonable renal function. We will follow her closely with parameters as listed above. Modify treatment plan based on clinical presentation, the patient laboratory results, further consultation with renal attending. We appreciate the consultation. We are glad to follow this patient with you. DICTATED BY: Zack Ventura NP JR/JESSE Zack Abdalla M.D. / [id number] CC: Shamika Childers M.D.
[2016-07-09 00:36] LABS: ER CBC TAT 2 Hrs 00 Mins; HEMOGLOBIN 11.9 g/dL (12.0-16.0); MEAN CORPUSCULAR HEMOGLOB 26.2 pg (26.0-34.0); MEAN CORPUSCULAR VOLUME 81.3 fL (80-100); RED CELL COUNT 4.55 10/6/uL (4.0-5.6); WHITE BLOOD CELLS 3.3 10/3/uL (4.5-10.5)
[2016-07-09 00:37] LABS: BASOPHILS 0.6 %; BASOPHILS ABSOLUTE 0.02 10/3/uL (0.0-0.16); EOSINOPHILS 2.1 %; EOSINOPHILS ABSOLUTE 0.07 10/3/uL (0.0-0.53); LYMPHOCYTES 23.5 %; LYMPHOCYTES ABSOLUTE 0.78 10/3/uL (0.67-4.30); MANUAL DIFF NO %; MEAN CORPUS HGB CONC 32.2 g/dL (32.0-36.0); MONOCYTES 5.1 %; MONOCYTES ABSOLUTE 0.17 10/3/uL (0.21-1.20); NEUTROPHILS 68.7 %; NEUTROPHILS ABSOLUTE 2.28 10/3/uL (2.02-8.40); PLATELET COUNT 96 10/3/uL (150-400)
[2016-07-09 04:47] LABS: ASCORBIC ACID (UR NOT ORDER) NEG (NEG); BILIRUBIN, URINE NEGATIVE (NEG); ER URINALYSIS TAT 0 Hrs 10 Mins; KETONE, URINE NEGATIVE (NEG); LEUKOCYTE ESTERASE(NOT OR NEG (NEG); NITRITE (URINE) NEG (NEG); WBC (NOT ORDERED) (RFLEX) 2 (0-5)
[2016-07-09 05:50] LABS: TROPONIN I 0.04 NG/ML (<0.05)
[~2016-07-09 06:21] MED LIST changes: +DEMA20 PO; +NXL3 PO
[2016-07-09 21:24] LABS: UR PROTEIN/CREAT RATIO 1.88 (< 0.2)
[2016-07-10 06:07] LABS: BASOPHILS 0.3 %; BASOPHILS ABSOLUTE 0.01 10/3/uL (0.0-0.16); EOSINOPHILS 2.6 %; EOSINOPHILS ABSOLUTE 0.08 10/3/uL (0.0-0.53); HEMATOCRIT 36.3 % (36.0-48.0); HEMOGLOBIN 11.3 g/dL (12.0-16.0); LYMPHOCYTES 26.9 %; LYMPHOCYTES ABSOLUTE 0.83 10/3/uL (0.67-4.30); MEAN CORPUS HGB CONC 31.1 g/dL (32.0-36.0); MEAN CORPUSCULAR HEMOGLOB 25.4 pg (26.0-34.0); MEAN CORPUSCULAR VOLUME 81.6 fL (80-100); MONOCYTES 8.1 %; MONOCYTES ABSOLUTE 0.25 10/3/uL (0.21-1.20); NEUTROPHILS 62.1 %; NEUTROPHILS ABSOLUTE 1.91 10/3/uL (2.02-8.40); PLATELET COUNT 77 10/3/uL (150-400); RBC DISTRIBUTION WIDTH 18.1 % (12.0-16.0); RED CELL COUNT 4.45 10/6/uL (4.0-5.6); WHITE BLOOD CELLS 3.1 10/3/uL (4.5-10.5)
[2016-07-10 06:09] LABS: MANUAL DIFF NO %
[2016-07-10 06:18] LABS: A/G RATIO 0.9 (0.7-1.9); ALBUMIN 3.4 G/DL (3.5-5.0); BUN (BLOOD UREA NITROGEN) 43 MG/DL (6-23); CALCIUM, SERUM 8.9 MG/DL (8.5-10.4); CHLORIDE, SERUM 107 MMOL/L (96-112); CO2 (CARBON DIOXIDE) 26 MMOL/L (24-34); CREATININE 3.12 MG/DL (0.55-1.02); GFR AFRICAN AMERICAN 18 ML/MIN (>=60); GFR NON AFRICAN AMERICAN 15 ML/MIN (>=60); GLOBULIN 3.9 G/DL (2.5-4.1); PHOSPHORUS, SERUM 4.2 MG/DL (2.5-4.5); POTASSIUM, SERUM 4.1 MMOL/L (3.5-5.3); SGOT(AST) 19 U/L (5-40); SGPT(ALT) 14 U/L (5-65); SODIUM, SERUM 142 MMOL/L (135-148); TOTAL BILIRUBIN 0.7 MG/DL (0-1.2); TOTAL PROTEIN 7.3 G/DL (6.0-8.5)
[2016-07-10 06:19] LABS: ALKALINE PHOSPHATASE 72 U/L (45-117); GLUCOSE, SERUM 119 MG/DL (60-99)
[2016-07-10 06:33] LABS: ANISOCYTOSIS 1+ (5-10/OIF) (0-5/OIF); PLATELET ESTIMATE DEC (ADEQUATE)
[2016-07-10 06:34] LABS: HYPOCHROMIA 1+ (3-10/OIF) (0-2/OIF)
[2016-07-11 06:10] LABS: BUN (BLOOD UREA NITROGEN) 44 MG/DL (6-23); CALCIUM, SERUM 8.8 MG/DL (8.5-10.4); CHLORIDE, SERUM 107 MMOL/L (96-112); CO2 (CARBON DIOXIDE) 26 MMOL/L (24-34); GFR AFRICAN AMERICAN 18 ML/MIN (>=60); GFR NON AFRICAN AMERICAN 16 ML/MIN (>=60); GLUCOSE, SERUM 126 MG/DL (60-99); PHOSPHORUS, SERUM 3.8 MG/DL (2.5-4.5); SODIUM, SERUM 141 MMOL/L (135-148)
[2016-07-12 07:04] LABS: ALBUMIN 3.3 G/DL (3.5-5.0); BUN (BLOOD UREA NITROGEN) 46 MG/DL (6-23); CALCIUM, SERUM 8.5 MG/DL (8.5-10.4); CHLORIDE, SERUM 108 MMOL/L (96-112); CO2 (CARBON DIOXIDE) 30 MMOL/L (24-34); CREATININE 3.17 MG/DL (0.55-1.02); GFR AFRICAN AMERICAN 18 ML/MIN (>=60); GFR NON AFRICAN AMERICAN 15 ML/MIN (>=60); GLUCOSE, SERUM 106 MG/DL (60-99); PHOSPHORUS, SERUM 3.4 MG/DL (2.5-4.5); POTASSIUM, SERUM 4.2 MMOL/L (3.5-5.3); SODIUM, SERUM 143 MMOL/L (135-148)
[2016-07-12 07:14] LABS: BASOPHILS 0.3 %; BASOPHILS ABSOLUTE 0.01 10/3/uL (0.0-0.16); EOSINOPHILS 3.4 %; HEMATOCRIT 35.6 % (36.0-48.0); LYMPHOCYTES ABSOLUTE 0.83 10/3/uL (0.67-4.30); MEAN CORPUS HGB CONC 30.9 g/dL (32.0-36.0); MEAN CORPUSCULAR HEMOGLOB 25.4 pg (26.0-34.0); MEAN CORPUSCULAR VOLUME 82.2 fL (80-100); MONOCYTES 7.4 %; MONOCYTES ABSOLUTE 0.22 10/3/uL (0.21-1.20); NEUTROPHILS 60.9 %; PLATELET COUNT 82 10/3/uL (150-400); RBC DISTRIBUTION WIDTH 18.2 % (12.0-16.0); RED CELL COUNT 4.33 10/6/uL (4.0-5.6)
[2016-07-12 07:15] LABS: MANUAL DIFF NO %
[2016-07-12 07:25] LABS: ANISOCYTOSIS 1+ (5-10/OIF) (0-5/OIF); PLATELET ESTIMATE DEC (ADEQUATE); RBC MORPHOLOGY ABN (NORMAL); SCHISTOCYTES OCC (0-2/OIF); TARGET CELLS OCC (1-2/OIF) (0-1/OIF)
[2016-07-13 05:45] LABS: ALBUMIN 3.4 G/DL (3.5-5.0); BUN (BLOOD UREA NITROGEN) 46 MG/DL (6-23); CALCIUM, SERUM 8.6 MG/DL (8.5-10.4); CHLORIDE, SERUM 107 MMOL/L (96-112); CO2 (CARBON DIOXIDE) 30 MMOL/L (24-34); CREATININE 3.07 MG/DL (0.55-1.02); GFR AFRICAN AMERICAN 18 ML/MIN (>=60); GFR NON AFRICAN AMERICAN 16 ML/MIN (>=60); GLUCOSE, SERUM 111 MG/DL (60-99); PHOSPHORUS, SERUM 3.3 MG/DL (2.5-4.5); POTASSIUM, SERUM 4.2 MMOL/L (3.5-5.3); SODIUM, SERUM 142 MMOL/L (135-148)
[2016-07-13 05:49] LABS: BASOPHILS 0.7 %; BASOPHILS ABSOLUTE 0.02 10/3/uL (0.0-0.16); EOSINOPHILS 3.7 %; EOSINOPHILS ABSOLUTE 0.11 10/3/uL (0.0-0.53); HEMATOCRIT 35.1 % (36.0-48.0); HEMOGLOBIN 11.1 g/dL (12.0-16.0); IMMATURE GRANULOCYTES 0.3 %; IMMATURE GRANULOCYTES ABSOLUTE 0.01 10/3/uL (0.0-0.11); LYMPHOCYTES 30.2 %; LYMPHOCYTES ABSOLUTE 0.89 10/3/uL (0.67-4.30); MEAN CORPUS HGB CONC 31.6 g/dL (32.0-36.0); MEAN CORPUSCULAR HEMOGLOB 25.8 pg (26.0-34.0); MEAN CORPUSCULAR VOLUME 81.4 fL (80-100); MEAN PLATELET VOLUME 10.4 fL (9.2-13.0); MONOCYTES 8.5 %; MONOCYTES ABSOLUTE 0.25 10/3/uL (0.21-1.20); NEUTROPHILS 56.6 %; NEUTROPHILS ABSOLUTE 1.67 10/3/uL (2.02-8.40); PLATELET COUNT 83 10/3/uL (150-400); RBC DISTRIBUTION WIDTH 18.1 % (12.0-16.0); RED CELL COUNT 4.31 10/6/uL (4.0-5.6)
[2016-07-13 05:51] LABS: MANUAL DIFF NO %
[2016-07-13 06:07] LABS: ANISOCYTOSIS 1+ (5-10/OIF) (0-5/OIF); HYPOCHROMIA 1+ (3-10/OIF) (0-2/OIF); PLATELET ESTIMATE DEC (ADEQUATE)
[2016-07-14 05:09] LABS: BASOPHILS 0.3 %; BASOPHILS ABSOLUTE 0.01 10/3/uL (0.0-0.16); EOSINOPHILS 2.7 %; EOSINOPHILS ABSOLUTE 0.08 10/3/uL (0.0-0.53); HEMATOCRIT 35.8 % (36.0-48.0); HEMOGLOBIN 11.5 g/dL (12.0-16.0); LYMPHOCYTES 30.9 %; LYMPHOCYTES ABSOLUTE 0.92 10/3/uL (0.67-4.30); MEAN CORPUS HGB CONC 32.1 g/dL (32.0-36.0); MEAN CORPUSCULAR HEMOGLOB 26.1 pg (26.0-34.0); MEAN CORPUSCULAR VOLUME 81.2 fL (80-100); MONOCYTES 9.7 %; MONOCYTES ABSOLUTE 0.29 10/3/uL (0.21-1.20); NEUTROPHILS 56.4 %; NEUTROPHILS ABSOLUTE 1.68 10/3/uL (2.02-8.40); PLATELET COUNT 102 10/3/uL (150-400); RBC DISTRIBUTION WIDTH 18.1 % (12.0-16.0); RED CELL COUNT 4.41 10/6/uL (4.0-5.6)
[2016-07-14 05:10] LABS: MANUAL DIFF NO %
[2016-07-14 05:21] LABS: BUN (BLOOD UREA NITROGEN) 49 MG/DL (6-23); CHLORIDE, SERUM 105 MMOL/L (96-112); CO2 (CARBON DIOXIDE) 30 MMOL/L (24-34); CREATININE 3.02 MG/DL (0.55-1.02); GFR AFRICAN AMERICAN 19 ML/MIN (>=60); GFR NON AFRICAN AMERICAN 16 ML/MIN (>=60); GLUCOSE, SERUM 109 MG/DL (60-99); SODIUM, SERUM 141 MMOL/L (135-148)
[2016-07-14 06:59] LABS: ANISOCYTOSIS 1+ (5-10/OIF) (0-5/OIF); PLATELET ESTIMATE SLT DEC (ADEQUATE)
[2016-07-15 06:50] LABS: BUN (BLOOD UREA NITROGEN) 50 MG/DL (6-23); CALCIUM, SERUM 8.5 MG/DL (8.5-10.4); CHLORIDE, SERUM 108 MMOL/L (96-112); CO2 (CARBON DIOXIDE) 30 MMOL/L (24-34); CREATININE 3.12 MG/DL (0.55-1.02); GFR AFRICAN AMERICAN 18 ML/MIN (>=60); GFR NON AFRICAN AMERICAN 15 ML/MIN (>=60); POTASSIUM, SERUM 3.9 MMOL/L (3.5-5.3); SODIUM, SERUM 141 MMOL/L (135-148)
[2016-07-15 06:52] LABS: GLUCOSE, SERUM 136 MG/DL (60-99)
[2016-07-16 05:20] LABS: BUN (BLOOD UREA NITROGEN) 52 MG/DL (6-23); CALCIUM, SERUM 9.2 MG/DL (8.5-10.4); CHLORIDE, SERUM 107 MMOL/L (96-112); CO2 (CARBON DIOXIDE) 30 MMOL/L (24-34); CREATININE 3.07 MG/DL (0.55-1.02); GFR AFRICAN AMERICAN 18 ML/MIN (>=60); GFR NON AFRICAN AMERICAN 16 ML/MIN (>=60); GLUCOSE, SERUM 126 MG/DL (60-99); POTASSIUM, SERUM 4.2 MMOL/L (3.5-5.3); SODIUM, SERUM 139 MMOL/L (135-148)
[2016-07-17 04:41] LABS: BASOPHILS 0.7 %; BASOPHILS ABSOLUTE 0.02 10/3/uL (0.0-0.16); EOSINOPHILS ABSOLUTE 0.06 10/3/uL (0.0-0.53); HEMATOCRIT 35.5 % (36.0-48.0); HEMOGLOBIN 11.1 g/dL (12.0-16.0); IMMATURE GRANULOCYTES 0.3 %; IMMATURE GRANULOCYTES ABSOLUTE 0.01 10/3/uL (0.0-0.11); LYMPHOCYTES 32.1 %; LYMPHOCYTES ABSOLUTE 0.95 10/3/uL (0.67-4.30); MEAN CORPUS HGB CONC 31.3 g/dL (32.0-36.0); MEAN CORPUSCULAR HEMOGLOB 25.6 pg (26.0-34.0); MEAN PLATELET VOLUME 10.7 fL (9.2-13.0); MONOCYTES 8.4 %; MONOCYTES ABSOLUTE 0.25 10/3/uL (0.21-1.20); NEUTROPHILS 56.5 %; NEUTROPHILS ABSOLUTE 1.67 10/3/uL (2.02-8.40); PLATELET COUNT 101 10/3/uL (150-400); RBC DISTRIBUTION WIDTH 17.9 % (12.0-16.0); RED CELL COUNT 4.33 10/6/uL (4.0-5.6)
[2016-07-17 04:42] LABS: MANUAL DIFF NO %
[2016-07-17 05:05] LABS: HYPOCHROMIA 1+ (3-10/OIF) (0-2/OIF); PLATELET ESTIMATE SLT DEC (ADEQUATE)
[2016-07-17 05:06] LABS: ANISOCYTOSIS 1+ (5-10/OIF) (0-5/OIF); HELMET CELLS OCC (0-2/OIF)
[2016-07-18 04:07] LABS: BASOPHILS 0.6 %; BASOPHILS ABSOLUTE 0.02 10/3/uL (0.0-0.16); EOSINOPHILS 2.8 %; EOSINOPHILS ABSOLUTE 0.09 10/3/uL (0.0-0.53); HEMATOCRIT 36.5 % (36.0-48.0); HEMOGLOBIN 11.6 g/dL (12.0-16.0); LYMPHOCYTES 32.9 %; LYMPHOCYTES ABSOLUTE 1.06 10/3/uL (0.67-4.30); MEAN CORPUS HGB CONC 31.8 g/dL (32.0-36.0); MEAN CORPUSCULAR HEMOGLOB 26.1 pg (26.0-34.0); MONOCYTES 8.4 %; MONOCYTES ABSOLUTE 0.27 10/3/uL (0.21-1.20); NEUTROPHILS 55.3 %; NEUTROPHILS ABSOLUTE 1.78 10/3/uL (2.02-8.40); PLATELET COUNT 114 10/3/uL (150-400); RBC DISTRIBUTION WIDTH 17.7 % (12.0-16.0); RED CELL COUNT 4.45 10/6/uL (4.0-5.6); WHITE BLOOD CELLS 3.2 10/3/uL (4.5-10.5)
[2016-07-18 04:08] LABS: MANUAL DIFF NO %
[2016-07-18 04:21] LABS: CALCIUM, SERUM 8.8 MG/DL (8.5-10.4); CHLORIDE, SERUM 104 MMOL/L (96-112); CO2 (CARBON DIOXIDE) 33 MMOL/L (24-34); CREATININE 3.05 MG/DL (0.55-1.02); GFR AFRICAN AMERICAN 18 ML/MIN (>=60); GFR NON AFRICAN AMERICAN 16 ML/MIN (>=60); GLUCOSE, SERUM 107 MG/DL (60-99); POTASSIUM, SERUM 4.2 MMOL/L (3.5-5.3); SODIUM, SERUM 141 MMOL/L (135-148)
[2016-07-18 04:22] LABS: BUN (BLOOD UREA NITROGEN) 56 MG/DL (6-23)
[2016-07-18 04:30] LABS: PLATELET ESTIMATE SLT DEC (ADEQUATE)
[2016-07-18 04:31] LABS: ANISOCYTOSIS 1+ (5-10/OIF) (0-5/OIF); HYPOCHROMIA 1+ (3-10/OIF) (0-2/OIF)
[2016-07-18] MEDS ORDERED: DEMA20 PO (15:40)
[2016-07-18] MEDS ORDERED: DIOVAN320 MG PO (15:41)
== END 2016-07-18 16:12 | disposition home or self-care (01) | DRG 291 ==
LOC: ER 06:21 → 7NO 11:24
PROVIDERS: Internal Medicine; Internal Medicine Nephrology; Nurse Practitioner; Registered Nurse
DX: I13.0 Hypertensive heart and chronic kidney disease with heart failure and stage 1 through stage 4 chronic kidney disease, or unspecified chronic kidney disease (principal); I50.43 Acute on chronic combined systolic (congestive) and diastolic (congestive) heart failure; D61.818 Other pancytopenia; N18.4 Chronic kidney disease, stage 4 (severe); E11.22 Type 2 diabetes mellitus with diabetic chronic kidney disease; R18.8 Other ascites; N17.9 Acute kidney failure, unspecified; I27.2 Other secondary pulmonary hypertension; Z68.42 Body mass index [BMI] 45.0-49.9, adult; K76.1 Chronic passive congestion of liver; I08.3 Combined rheumatic disorders of mitral, aortic and tricuspid valves; K57.30 Diverticulosis of large intestine without perforation or abscess without bleeding; E66.01 Morbid (severe) obesity due to excess calories; Z82.49 Family history of ischemic heart disease and other diseases of the circulatory system; Z83.3 Family history of diabetes mellitus; Z90.49 Acquired absence of other specified parts of digestive tract; Z95.0 Presence of cardiac pacemaker; Z79.82 Long term (current) use of aspirin; Z91.041 Radiographic dye allergy status; Z91.048 Other nonmedicinal substance allergy status; Z88.8 Allergy status to other drugs, medicaments and biological substances
CPT/HCPCS: 71010; 71020; 72170; 74000; 74176; 76705; 80048; 80053; 80069; 81001; 82570; 82962; 83690; 83735; 83880; 84156; 84484; 85025; 93005; 93306; 99285; A9270-GY